=== PATIENT | female | born 1955 | race Caucasian/White ===

== ENCOUNTER 2018-11-16 16:54 | Observation (INO) | payer OTHER ==
--- NOTE | 2018-11-16 18:52 | RAD REPORT ---
EXAM DESCRIPTION: Debbie Single View11/16/2018 6:44 pm CLINICAL HISTORY: Chest pain COMPARISON: 2007 FINDINGS: The lungs appear clear of acute infiltrate. The heart is normal size IMPRESSION: No acute abnormalities displayed
[2018-11-16 18:55] LABS: Absolute Lymphocytes (CBC) 1.3 K/uL (0.7-4.9); Basophils % 0.9 % (0-1.3); Hematocrit 32.1 % (36.0-45.0); Lymphocytes % 28.2 % (15.3-44.8); MPV 8.3 fL (7.6-11.3); RBC Red Blood Cell Count 4.35 M/uL (3.86-4.86)
[2018-11-16 18:56] LABS: Protime INR 0.97
[2018-11-16 19:13] LABS: ALT/SGPT 16 U/L (12-78); AST/SGOT 14 U/L (15-37); Albumin 3.4 g/dL (3.4-5.0); Alkaline Phosphatase 120 U/L (45-117); BUN Blood Urea Nitrogen 11 mg/dL (7-18); Bicarbonate 25 mmol/L (21-32); Bilirubin Direct 0.1 mg/dL (0-0.2); Bilirubin Total 0.3 mg/dL (0.2-1.0); Glucose Level 137 mg/dL (74-106); Lipase 64 U/L (73-393); Magnesium 2.3 mg/dL (1.8-2.4); NT PRO-BNP 245 pg/mL (<125); Potassium 3.7 mmol/L (3.5-5.1); Protein, Total 7.1 g/dL (6.4-8.2); Sodium Level 142 mmol/L (136-145); Troponin (Emerg Dept Use Only) < 0.02 ng/mL (0.0-0.045)
--- NOTE | 2018-11-16 19:40 | RAD REPORT ---
EXAM DESCRIPTION: CT - Abdomen Pelvis W Contrast - 11/16/2018 7:29 pm CLINICAL HISTORY: Abdominal pain COMPARISON: none. TECHNIQUE: Computed axial tomography of the abdomen pelvis was obtained. 100 cc Isovue-300 was admin istered intravenously. Oral contrast was not requested which limits evaluation of bowel. All CT scans are performed using dose optimization technique as appropriate and may include automated exposure control or mA/KV adjustment according to patient size. FINDINGS: The liver, spleen, adrenal and kidneys appear unremarkable. Small umbilical hernia There is no evidence of diverticulitis. Normal appendix Cholecystectomy. Postsurgical changes involve the stomach Mild peripancreatic stranding. The pancreas is normal size IMPRESSION: Mild peripancreatic stranding may indicate mild pancreatitis.
[2018-11-16] MEDS ORDERED: NA CHLORIDE 0.9% 1,000 ML ONE (20:19)
--- NOTE | 2018-11-16 21:21 | EDPHYS ---
Physician Documentation [facility] Name: Fabiana Garcia Age: 63 yrs Sex: Female : 1955 Arrival Date: 11/16/2018 Time: 16:59 Bed 19 Private MD: ED Physician Emery Hitchcock HPI: 11/16 21:39 This 63 yrs old Female presents to ER via Ambulatory with complaints of kb Abdominal Pain. 21:39 The patient presents with abdominal pain in the lower abdomen. Onset: The kb symptoms/episode began/occurred 2 month(s) ago. The symptoms do not radiate. Associated signs and symptoms: Pertinent positives: nausea and vomiting, chest pain, diarrhea, syncope. The symptoms are described as intermittent. Modifying factors: The symptoms are alleviated by nothing, the symptoms are aggravated by nothing. Severity of pain: At its worst the pain was moderate in the emergency department the pain is unchanged. The patient has not experienced similar symptoms in the past. The patient has been recently seen by a physician: the patient's primary care provider, Dr. Toscano earlier today, with similar presenting complaints, and was sent to the [facility] Emergency Department for further evaluation. Pt reports she has had chest pressure that builds up starting in upper abd and radiates up center of the chest every night for a few months. States she burps or vomits and feels better. Also reports intermittent abd pain and diarrhea for 2 months. Had a syncopal episode a month ago and another one 10 days ago. Went to DR TOSCANO today and was sent to ED for eval. Historical: - Allergies: 17:02 No Known Allergies; hb - Immunization history:: Adult Immunizations up to date. - Social history:: Smoking status: Patient/guardian denies using tobacco. - Ebola Screening: : No symptoms or risks identified at this time. ROS: 21:39 Constitutional: Negative for fever, chills, and weight loss, Eyes: Negative for injury, kb pain, redness, and discharge, ENT: Negative for injury, pain, and discharge, Neck: Negative for injury, pain, and swelling, Respiratory: Negative for shortness of breath, cough, wheezing, and pleuritic chest pain, Back: Negative for injury and pain, : Negative for injury, bleeding, discharge, and swelling, MS/Extremity: Negative for injury and deformity, Skin: Negative for injury, rash, and discoloration. 21:39 Cardiovascular: Positive for chest pain, Negative for edema, orthopnea, palpitations, paroxysmal nocturnal dyspnea. 21:39 Abdomen/GI: Positive for abdominal pain, nausea, vomiting, and diarrhea. 21:39 Neuro: Positive for syncope. Exam: 21:39 Constitutional: This is a well developed, well nourished patient who is awake, alert, kb and in no acute distress. Head/Face: Normocephalic, atraumatic. Eyes: Pupils equal round and reactive to light, extra-ocular motions intact. Lids and lashes normal. Conjunctiva and sclera are non-icteric and not injected. Cornea within normal limits. Periorbital areas with no swelling, redness, or edema. ENT: Nares patent. No nasal discharge, no septal abnormalities noted. Tympanic membranes are normal and external auditory canals are clear. Oropharynx with no redness, swelling, or masses, exudates, or evidence of obstruction, uvula midline. Mucous membranes moist. Neck: Trachea midline, no thyromegaly or masses palpated, and no cervical lymphadenopathy. Supple, full range of motion without nuchal rigidity, or vertebral point tenderness. No Meningismus. Chest/axilla: Normal chest wall appearance and motion. Nontender with no deformity. No lesions are appreciated. Cardiovascular: Regular rate and rhythm with a normal S1 and S2. No gallops, murmurs, or rubs. Normal PMI, no JVD. No pulse deficits. Respiratory: Lungs have equal breath sounds bilaterally, clear to auscultation and percussion. No rales, rhonchi or wheezes noted. No increased work of breathing, no retractions or nasal flaring. Back: No spinal tenderness. No costovertebral tenderness. Full range of motion. Skin: Warm, dry with normal turgor. Normal color with no rashes, no lesions, and no evidence of cellulitis. MS/ Extremity: Pulses equal, no cyanosis. Neurovascular intact. Full, normal range of motion. Neuro: Awake and alert, GCS 15, oriented to person, place, time, and situation. Cranial nerves II-XII grossly intact. Motor strength 5/5 in all extremities. Sensory grossly intact. Cerebellar exam normal. Normal gait. 21:39 Abdomen/GI: Inspection: obese Bowel sounds: normal, in all quadrants, Palpation: soft, in all quadrants, moderate abdominal tenderness, in the right lower quadrant and left lower quadrant. Vital Signs: 17:02 BP 170 / 77; Pulse 92; Resp 20; Temp 98.2; Pulse Ox 99% on R/A; Weight 127.01 kg; hb Height 5 ft. 5 in. (165.10 cm); Pain 0/10; 18:42 BP 189 / 81; Pulse 86; Resp 18; Pulse Ox 97% ; bp 18:51 BP 168 / 87; Pulse 84; Resp 16; Pulse Ox 97% ; bp 19:54 BP 162 / 90 Supine; Pulse 86; mt 19:54 BP 181 / 89 Sitting; Pulse 94; mt 19:54 BP 190 / 102 Standing; Pulse 102; mt 20:15 BP 170 / 75; Pulse 82; Resp 16; Pulse Ox 98% on R/A; jb4 21:30 BP 156 / 75; Pulse 95; Resp 18; Pulse Ox 98% on R/A; jb4 22:00 BP 149 / 83; Pulse 88; Resp 18; Temp 98.3(O); Pulse Ox 98% on R/A; jb4 23:00 BP 137 / 67; Pulse 91; Resp 18; Pulse Ox 97% on R/A; jb4 17:02 Body Mass Index 46.59 (127.01 kg, 165.10 cm) hb MDM: 18:12 Patient medically screened. kb 21:18 Data reviewed: vital signs, nurses notes. Data interpreted: Pulse oximetry: on room air kb is 98 %. Interpretation: normal. Counseling: I had a detailed discussion with the patient and/or guardian regarding: the historical points, exam findings, and any diagnostic results supporting the discharge/admit diagnosis, lab results, radiology results, the need for further work-up and treatment in the hospital. Physician consultation: A Ricardo CONNELLY was contacted at 21:00, regarding patient's condition, wants pt admitted. 11/16 18:12 Order name: Basic Metabolic Panel; Complete Time: 19:19 kb 11/16 18:12 Order name: CBC with Diff; Complete Time: 19:33 kb 11/16 18:12 Order name: LFT's; Complete Time: 19:19 kb 11/16 18:12 Order name: Magnesium; Complete Time: 19:19 kb 11/16 18:12 Order name: NT PRO-BNP; Complete Time: 19:19 kb 11/16 18:12 Order name: PT-INR; Complete Time: 18:59 kb 11/16 18:12 Order name: Troponin (emerg Dept Use Only); Complete Time: 19:19 kb 11/16 18:12 Order name: XRAY Chest (1 view); Complete Time: 18:53 kb 11/16 18:12 Order name: Lipase; Complete Time: 19:19 kb 11/16 18:12 Order name: CT Abd/Pelvis - IV Contrast Only; Complete Time: 19:51 kb 11/16 21:40 Order name: Troponin I; Complete Time: 22:55 EDMS 11/16 22:41 Order name: Echo with Doppler EDMS 11/16 22:41 Order name: Carotid Artery Bilateral EDMS 11/16 18:12 Order name: EKG; Complete Time: 18:15 kb 11/16 18:12 Order name: Cardiac monitoring; Complete Time: 18:37 kb 11/16 18:12 Order name: EKG - Nurse/Tech; Complete Time: 18:25 kb 11/16 18:12 Order name: IV Saline Lock; Complete Time: 18:37 kb 11/16 18:12 Order name: Labs collected and sent; Complete Time: 18:37 kb 11/16 18:12 Order name: O2 Per Protocol; Complete Time: 18:38 kb 11/16 18:12 Order name: O2 Sat Monitoring; Complete Time: 18:38 kb 11/16 19:19 Order name: Orthostatics; Complete Time: 19:55 kb 11/16 21:39 Order name: EKG Electrocardiogram EDMS 11/16 21:39 Order name: EKG Electrocardiogram EDMS 11/16 21:39 Order name: EKG Electrocardiogram EDMS Administered Medications: 20:26 Drug: NS 0.9% 1000 ml Route: IV; Rate: 1000 ml; Site: right antecubital; jb4 22:00 Follow up: IV Status: Completed infusion; IV Intake: 1000ml jb4 Disposition: 11/17 08:00 Co-signature as Attending Physician, Emery Hitchcock MD I agree with the assessment and wa plan of care. Disposition: 11/16/18 21:19 Hospitalization ordered by Talita Toscano for Observation. Preliminary diagnosis are Lower abdominal pain, unspecified, Chest pain, unspecified. - Bed requested for Telemetry/MedSurg (observation). - Status is Observation. jb4 - Condition is Stable. - Problem is new. - Symptoms are unchanged. UTI on Admission? No Signatures: Dispatcher [employer] EDLatosha Sandoval, APRIL-C SAW TAILER-Sarita Levi, RN RN Tresa Govea, RN RN Cedric Chun, RN RN jb4 Emery Hitchcock MD MD pr Corrections: (The following items were deleted from the chart) 11/16 22:14 21:19 Hospitalization Ordered by A Ricardo CONNELLY for Observation. Preliminary diagnosis is mw Lower abdominal pain, unspecified; Chest pain, unspecified. Bed requested for Telemetry/MedSurg (observation). Status is Observation. Condition is Stable. Problem is new. Symptoms are unchanged. UTI on Admission? No. kb 23:18 22:14 11/16/2018 21:19 Hospitalization Ordered by A Ricardo CONNELLY for Observation. jb4 Preliminary diagnosis is Lower abdominal pain, unspecified; Chest pain, unspecified. Bed requested for Telemetry/MedSurg (observation). Status is Observation. Condition is Stable. Problem is new. Symptoms are unchanged. UTI on Admission? No. mw
--- NOTE | 2018-11-16 21:21 | ER ---
Nurse's Notes [facility] Name: Fabiana Garcia Age: 63 yrs Sex: Female : 1955 Arrival Date: 11/16/2018 Time: 16:59 Bed 19 Private MD: Diagnosis: Lower abdominal pain, unspecified;Chest pain, unspecified Presentation: 11/16 17:01 Presenting complaint: intermittent LLQ pain and N/V x 1 month. Eating chips in triage. hb Denies fever. Transition of care: patient was not received from another setting of care. Onset of symptoms is unknown. Risk Assessment: Do you want to hurt yourself or someone else? Patient reports no desire to harm self or others. Care prior to arrival: None. 17:01 Method Of Arrival: Ambulatory hb 17:01 Acuity: GEORGES 3 hb Triage Assessment: 17:05 General: Appears in no apparent distress. comfortable, obese, Behavior is cooperative, bp appropriate for age, anxious. Pain: Complains of pain in abdomen. EENT: No deficits noted. Neuro: No deficits noted. Cardiovascular: Rhythm is sinus rhythm. Respiratory: No deficits noted. GI: Reports lower abdominal pain. : No signs and/or symptoms were reported regarding the genitourinary system. Derm: No deficits noted. Musculoskeletal: No deficits noted. Historical: - Allergies: 17:02 No Known Allergies; hb - Immunization history:: Adult Immunizations up to date. - Social history:: Smoking status: Patient/guardian denies using tobacco. - Ebola Screening: : No symptoms or risks identified at this time. Screenin:32 Abuse screen: Denies threats or abuse. Denies injuries from another. Nutritional bp screening: No deficits noted. Tuberculosis screening: No symptoms or risk factors identified. Fall Risk None identified. Assessment: 18:10 General: SEE TRIAGE NOTE. bp 18:42 Reassessment: ALL CURRENT ORDERS COMPLETED, CT PENDING. bp 19:10 Reassessment: Patient appears in no apparent distress at this time. Patient and/or jb4 family updated on plan of care and expected duration. Pain level reassessed. Patient is alert, oriented x 3, equal unlabored respirations, skin warm/dry/pink. 20:15 Reassessment: Patient appears in no apparent distress at this time. Patient and/or jb4 family updated on plan of care and expected duration. Pain level reassessed. Patient is alert, oriented x 3, equal unlabored respirations, skin warm/dry/pink. 21:30 Reassessment: Patient appears in no apparent distress at this time. Patient and/or jb4 family updated on plan of care and expected duration. Pain level reassessed. Patient is alert, oriented x 3, equal unlabored respirations, skin warm/dry/pink. 22:32 Reassessment: Patient appears in no apparent distress at this time. Patient and/or jb4 family updated on plan of care and expected duration. Pain level reassessed. Patient is alert, oriented x 3, equal unlabored respirations, skin warm/dry/pink. 23:15 Reassessment: Patient appears in no apparent distress at this time. Patient and/or jb4 family updated on plan of care and expected duration. Pain level reassessed. Patient is alert, oriented x 3, equal unlabored respirations, skin warm/dry/pink. PT transferred up stair via wheelchair, IV patent, flushes and draws blood with ease. Vital Signs: 17:02 BP 170 / 77; Pulse 92; Resp 20; Temp 98.2; Pulse Ox 99% on R/A; Weight 127.01 kg; hb Height 5 ft. 5 in. (165.10 cm); Pain 0/10; 18:42 BP 189 / 81; Pulse 86; Resp 18; Pulse Ox 97% ; bp 18:51 BP 168 / 87; Pulse 84; Resp 16; Pulse Ox 97% ; bp 19:54 BP 162 / 90 Supine; Pulse 86; mt 19:54 BP 181 / 89 Sitting; Pulse 94; mt 19:54 BP 190 / 102 Standing; Pulse 102; mt 20:15 BP 170 / 75; Pulse 82; Resp 16; Pulse Ox 98% on R/A; jb4 21:30 BP 156 / 75; Pulse 95; Resp 18; Pulse Ox 98% on R/A; jb4 22:00 BP 149 / 83; Pulse 88; Resp 18; Temp 98.3(O); Pulse Ox 98% on R/A; jb4 23:00 BP 137 / 67; Pulse 91; Resp 18; Pulse Ox 97% on R/A; jb4 17:02 Body Mass Index 46.59 (127.01 kg, 165.10 cm) hb ED Course: 16:59 Patient arrived in ED. mr 17:02 Triage completed. hb 17:02 Arm band placed on. hb 18:00 EKG done, by ED staff, reviewed by Latosha MARTIN. dh3 18:10 Paco Maxwell, RN is Primary Nurse. bp 18:12 Latosha Ellison FNP-C is PHCP. kb 18:12 Emery Hitchcock MD is Attending Physician. kb 18:32 Patient has correct armband on for positive identification. Placed in gown. Bed in low bp position. Call light in reach. Side rails up X2. Adult w/ patient. 18:33 Radiology exam delayed due to lab results not completed at this time. (BUN/Creatinine). vm2 18:34 Initial lab(s) drawn, by me, sent to lab. Inserted saline lock: 20 gauge in right 3 antecubital area, using aseptic technique. Blood collected. 18:45 XRAY Chest (1 view) In Process Unspecified. EDMS 18:54 Radiology exam delayed due to lab results not completed at this time. (BUN/Creatinine). vm2 19:01 Primary Nurse role handed off by Paco Maxwell, EDY jb4 19:01 Cedric Chun, EDY is Primary Nurse. jb4 19:27 CT completed. Patient tolerated procedure well. Patient moved to CT. Patient moved back ia from CT. 19:30 CT Abd/Pelvis - IV Contrast Only In Process Unspecified. EDMS 21:19 Talita Silva MD is Hospitalizing Provider. kb 23:00 No provider procedures requiring assistance completed. Patient admitted, IV remains in jb4 place. Administered Medications: 20:26 Drug: NS 0.9% 1000 ml Route: IV; Rate: 1000 ml; Site: right antecubital; jb4 22:00 Follow up: IV Status: Completed infusion; IV Intake: 1000ml jb4 Intake: 22:00 IV: 1000ml; Total: 1000ml. jb4 Outcome: 21:19 Decision to Hospitalize by Provider. kb 23:00 Admitted to Tele accompanied by nurse, via wheelchair, room 411, with chart, Report jb4 called to EDY Ho 23:00 Condition: stable 23:00 Discharge instructions given to patient, family, Instructed on the need for admit, Demonstrated understanding of instructions. 23:18 Patient left the ED. jb4 Signatures: Dispatcher [employer] EDAZ Latosha Ellison, ACCOUNT MANAGER [employer]-C ACCOUNT MANAGER [employer]-Ckb Edmundo, Chela mr JefersonTresa, RN RN Cedric Chun RN RN jb4 Luis Angel Lee [facility] Carol Leos ri Jn, Ira 3 Paco Maxwell, RN RN bp Corrections: (The following items were deleted from the chart) 17:03 17:01 Presenting complaint: LLQ pain and N/V x 1 month. Eating chips in triage. Denies hb fever. hb
[2018-11-16 23:36] VITALS: BMI 46.5
[2018-11-17 00:23] LABS: Urine Appearance CLEAR; Urine Bilirubin NEGATIVE (NEG); Urine Blood NEGATIVE (NEG); Urine Color YELLOW; Urine Glucose NEGATIVE (NEG); Urine Protein NEGATIVE (NEG); Urine Specific Gravity >=1.030 (1.005-1.030); Urine Urobilinogen 0.2 mg/dL (0.2-1.0)
[2018-11-17 00:27] LABS: Urine Microscopic Reflex NO UMIC
[2018-11-17 00:30] VITALS: O2SAT 100
[2018-11-17 00:34] LABS: Ferritin 5.1 ng/mL (8-388); Folic Acid, (Folate) > 20.0 ng/mL (3.1-17.5); Transferrin 381 mg/dL (200-360)
[2018-11-17] MEDS ORDERED: ONDANSETRON 4 MG/2 ML VIAL IV PRN (04:59)
[2018-11-17] MEDS ORDERED: MORPHINE 2 MG/ML SYR IV PRN (04:59)
[2018-11-17] MEDS ORDERED: SODIUM CHLORIDE 0.9% 10ML INJ IV PRN (05:50)
[2018-11-17 06:12] LABS: Lymphocytes % 30.3 % (15.3-44.8)
[2018-11-17 06:24] LABS: Potassium 4.2 mmol/L (3.5-5.1)
[2018-11-17] MEDS ORDERED: PANTOPRAZOLE 40MG TABLET PO SCH (06:30)
--- NOTE | 2018-11-17 07:35 | EKG ---
Test Date: 2018-11-16 Test Time: 18:27:50 Clock Assembler: BRIDGER MEASUREMENT RESULTS: Intervals: Rate: 83 WV: 130 QRSD: 78 QT: 372 QTc: 437 [place]: P: 35 WV: 130 QRS: 13 T: 53 INTERPRETIVE STATEMENTS: Normal sinus rhythm Normal ECG Compared to ECG 09/13/2007 05:04:13 No significant changes Electronically Signed On 11-17-18 07:33:58 CDT by Jeffrey Lilly
[2018-11-17 07:36] LABS: Absolute Lymphocytes (CBC) 1.5 K/uL (0.7-4.9); Basophils % 1.1 % (0-1.3); Hematocrit 30.8 % (36.0-45.0); MPV 8.4 fL (7.6-11.3); RBC Red Blood Cell Count 4.16 M/uL (3.86-4.86)
[2018-11-17] MEDS ORDERED: REGADENOSON 0.4 MG/5 ML SYR IV ONE (07:46)
[2018-11-17] MEDS ORDERED: PNEUMOCOCCAL VACCINE 0.5 ML IMVAC ONE ×2 (08:00→14:00)
[2018-11-17] MEDS ORDERED: PANTOPRAZOLE 40 MG INJ IVP SCH (09:00)
[2018-11-17] MEDS ORDERED: ASPIRIN EC 81 MG TAB PO SCH (09:00)
--- NOTE | 2018-11-17 09:06 | RAD REPORT ---
EXAM DESCRIPTION: USCarotid Artery Bilateral11/17/2018 7:12 am CLINICAL HISTORY: Syncope COMPARISON: 2007 FINDINGS: The velocity of the right internal carotid artery equals 63 cm/sec. The right ICA/CCA rati o 1.4 The velocity of the left internal carotid artery equals 95 cm/sec. The left ICA/CCA ratio 1.2 Mild plaque is present within the carotid arteries. The vertebral arteries demonstrate antegrade flow IMPRESSION: Mild plaque within the carotid arteries without evidence of a hemodynamically significan t stenosis NASCET criteria used. Mild 0-49% stenosis Moderate 50-69% stenosis Severe 70-99% stenosis
--- NOTE | 2018-11-17 10:53 | RAD REPORT ---
EXAM DESCRIPTION: NM - Rest Stress Cardiac Imaging - 11/17/2018 10:46 am CLINICAL HISTORY: Chest pain COMPARISON: None. TECHNIQUE: The patient was administered approximately 10 mCi of Tc 99m Sestamibi prior to resting SP ECT imaging of the heart. The patient was then administered approximately 30 mCi of Tc 99m Sestamibi following exercise or pharmacologic stress. Multiplanar SPECT images were reviewed. FINDINGS: The end diastolic volume is 109 ml, the end systolic volume is 44 ml, and the ejection fra ction is 59 %. No stress-induced ischemic changes identified. There is a decrease in activity along the inferior wal l from base to apex that does not change between rest and stress imaging. This is favored to be diaph ragm attenuation artifact rather than inferior wall scarring. No other area of fixed decreased activi ty. IMPRESSION: No stress-induced ischemia. Large area of mildly diminished activity involving the inferior wall from base to apex favored to be attenuation artifact from diaphragm rather than scarring. Normal ventricular volumes and ejection fraction.
--- NOTE | 2018-11-17 12:26 | EKG ---
Test Date: 2018-11-17 Test Time: 07:24:30 Clothing Busheler: YVONNE MEASUREMENT RESULTS: Intervals: Rate: 69 AL: 134 QRSD: 76 QT: 396 QTc: 424 [place]: P: 45 AL: 134 QRS: 26 T: 49 INTERPRETIVE STATEMENTS: Normal sinus rhythm Normal ECG Compared to ECG 11/16/2018 18:27:50 No significant changes Electronically Signed On 11-17-18 12:24:59 CDT by Mark Spivey
[2018-11-17 12:33] VITALS: BP 179/80; TEMP 97.8
--- NOTE | 2018-11-17 14:02 | ECHO ---
HEIGHT: 5 ft 5 in WEIGHT: 279 lb 6.4 oz DATE OF STUDY: 11/17/[address]: Gee Silva MD 2-DIMENSIONAL: YES M.MODE: YES DOPPLER: YES COLOR FLOW: YES TDS: NO PORTABLE: NO DEFINITY: NO BUBBLE STUDY: NO DIAGNOSIS: SYNCOPE CARDIAC HISTORY: CATHERIZATION: NO SURGERY: NO PROSTHETIC VALVE: NO PACEMAKER: NO MEASUREMENTS (cm) DIASTOLIC (NORMALS) SYSTOLIC (NORMALS) IVSd 1.1 (0.6-1.2) LA Diam 3.2 (1.9-4.0) LVEF 69% LVIDd 4.3 (3.5-5.7) LVIDs 2.6 (2.0-3.5) %FS 39% LVPWd 1.2 (0.6-1.2) Ao Diam 2.6 (2.0-3.7) 2 DIMENSIONAL ASSESSMENT: RIGHT ATRIUM: NORMAL LEFT ATRIUM: NORMAL RIGHT VENTRICLE: NORMAL LEFT VENTRICLE: NORMAL TRICUSPID VALVE: NORMAL MITRAL VALVE: NORMAL PULMONIC VALVE: NORMAL AORTIC VALVE: NORMAL PERICARDIAL EFFUSION: NONE AORTIC ROOT: NORMAL LEFT VENTRICULAR WALL MOTION: NORMAL DOPPLER/COLOR FLOW: NORMAL COMMENTS: NORMAL 2D ECHOCARDIOGRAM WITH DOPPLER. NO WALL MOTION ABNORMALITY. NO EFFUSION. TECHNOLOGIST: Theresa VELOZ
--- NOTE | 2018-11-17 14:06 | TREADPHA ---
DX: CHEST PAIN Date of Study: 11/17/2018 Ht: 5 5 Wt: 279 lb 6.4 oz Consulting Physician: PRAMOD MEDICATIONS: ASPIRIN, ZOFRAN, PROTONIX HISTORY: REFLUX, GASTRIC BYPASS PHYSICIAL EXAMINATION: RESTING B.P.: 168/81 RESTING H.R.: 78 RESTING EKG: NORMAL PROTOCOL: LEXISCAN EXERCISE TIME: 3:30 B.P. AT PEAK STRESS: 154/67 IMPRESSION: LEXISCAN STRESS TEST PERFORMED. CARDIOLITE INJECTED PER PROTOCOL. NO SUPRAVENTRICULAR TACHYCARDIA OR VENTRICULAR TACHYCARDIA NOTED. DENIES CHEST PAIN OR SHORTNESS OF BREATH. NO ARRYTHMIAS. SEE NUCLEAR MEDICINE REPORT.
--- NOTE | 2018-11-18 02:57 | HP ---
Date of Admission: 11/16/2018 Chief Complaint: Chest pain, abdominal pain, fainting episodes. History Of Present Illness: This is a 63-year-old pleasant female patient who has prior history of g astric bypass surgery, came into office with 1 month history of intermittent abdominal pain, nausea, vomiting, diarrhea for last 1 month. She is also having some episodes of chest pain, describing as h eaviness, tightness type of feeling in the center of the chest in last 2 weeks, not associated with a ny meal or activity. She describes having 2 episodes of fainting spell, once while she was in the ba throom, walking, all of a sudden she had a fainting spell and she fell down on the floor and second t aaliyah she had was while she was sitting in the chair and patient reports that second episode she believ es might have been due to drinking excessive amount of wine. Patient reports drinking on an average 4 glasses of wine a day at nighttime and each glass is about 4 ounce. When she had that last faintin g episode while she was sitting in the chair, she reports drinking about 6 glasses of wine a day. Af ter she was evaluated at the office, she was sent to emergency room for further evaluation, and after further evaluation in the ER, she was admitted to the hospital. Past Medical History: Significant for sleep apnea, osteoarthritis at multiple sites, history of anem ia, hyperlipidemia. Past Surgical History: Gastric bypass surgery in 2000, in 1982 and 1985, and breast biopsy in 1975. Allergies: NO KNOWN ALLERGIES. Family History: Significant for cancer of pancreas, hypertension, myocardial infarction, Alzheimer d isease, and migraine. Social History: Negative for smoking. Use of alcohol, 4 to 6 glasses of wine every day. Review of Systems: GI: As mentioned above. Cardiovascular: As mentioned above. All other systems reviewed and negative. Physical Examination: Vital Signs: Upon admission vital signs, temperature 98.2, pulse 92, respiratory rate 20, blood pres sure 170/77, oxygen saturation 99%. Height 5 feet 5 inches, weight 279 pounds. General: Awake, alert, oriented, not in distress. HEENT: Head atraumatic, normocephalic. Conjunctivae nonerythematous. Sclerae white. Mouth, no thr ush or edema noted. Ears/Nose, no mass, lesion, discharge noted. Neck: Supple. No JVD, lymph nodes, bruit, thyromegaly noted. Lungs: Bilateral good equal air entry. Clear to auscultation. No rhonchi. No rales. Heart: Normal heart sounds, no murmur or gallop. Abdomen: Soft. Bowel sounds normoactive. No guarding, rigidity, distention. Patient has significa nt tenderness in the left lower quadrant. No rebound tenderness. Extremities: No leg edema. No calf tenderness. Skin: No rash, ulcer, cellulitis. Lymphatics: No lymph node enlargement in neck, supraclavicular, infraclavicular region. Neuro: No focal neurological deficit. Chest: Unremarkable. External Genitalia: Deferred. Rectal: Deferred. Medications: Zantac 150 mg p.o. daily p.r.n. She takes naproxen p.r.n. Laboratory Data: White count 4.6, hemoglobin 9.6, platelets 314. Sodium 142, potassium 3.7, chlorid e 110, bicarb 25, BUN 11, creatinine 0.90, glucose 137. Liver function tests unremarkable. Troponin less than 0.02. Lipase 64. Chest x-ray, no acute cardiopulmonary changes. EKG; normal sinus rhythm, no acute ST-T changes. CAT scan of the abdomen pelvis, no acute intraabdominal changes noted, except some mild stranding around the pancreas. Impression: 1.Chest pain. 2.Syncope. 3.Mild acute pancreatitis. 4.Hypertension. 5.Status post gastric bypass. 6.Primary insomnia. 7.Hyperlipidemia. 8.Gastroesophageal reflux disease. Plan: Admit patient to hospital for further evaluation and management of this problem. Patient is a ppropriate for observation. We will go ahead and keep her on telemetry. Get serial cardiac enzymes. Start her on IV Protonix. Pain and nausea medications will be given. We will get carotid Doppler, echocardiogram, and stress test tomorrow morning; get fasting lipid profile; repeat lipase; and I wi ll see her tomorrow morning for followup. Anemia workup will be done. Stool guaiac done in the [facility] was negative. FRANCHESKA/MODL Voice ID: [id number]
--- NOTE | 2018-11-18 03:27 | DS ---
Date of Discharge: 11/17/2018 Disposition: Discharged to go home. Physical Examination: HEENT: Unremarkable. Lungs: Clear to auscultation. Heart: Sounds normal. Abdomen: Soft. Bowel sounds normal. No guarding, rigidity. Mild tenderness in left lower quadrant , much better today than yesterday. No rebound tenderness. Extremities: No leg edema. Discharge Medications And Instructions: 1.Stop Zantac. 2.Take Protonix 40 mg p.o. daily. 3.Take trazodone 50 mg. Patient to take half a tablet p.o. at bedtime. 4.Take Ferrocite 1 tablet by mouth 2 times a day. When I will see her on outpatient basis, we will decide on antihypertensive medication at that time. Followup: Follow up at my office next week. Laboratory Data: Labs done during this hospitalization: Ferritin level low at 5.1, B12 normal at 36 4, folic acid more than 20. Liver function tests unremarkable. Troponin less than 0.02. Initial li pase 64. Repeat lipase today 83. CAT scan of abdomen shows changes of mild pancreatitis, status pos t cholecystectomy. No other acute findings. Chest x-ray unremarkable. Carotid Doppler; mild caroti d plaquing, no evidence of hemodynamically significant stenotic lesion. Stress test negative for str ess-induced ischemia. Echo result pending at the time of discharge. Hospital Course: A 63-year-old pleasant female patient admitted to the hospital with chest pain, abd ominal pain, and syncope. Please see dictated H and P for more information. After patient was evalu ated at office, she was sent to emergency room for further workup. After further workup in the ER, s he was admitted to the hospital. Her CT was ruled out by getting serial cardiac enzymes, and today, we got negative stress tests, unremarkable carotid Doppler, and after the echocardiogram, order was kristin morgan to discharge the patient. I will follow up on echocardiogram results on outpatient basis. I did have a long discussion with patient's this morning and advised her that she should not dr ink any alcohol at all in view of pancreatitis changes that we see and other possible side effect of long-term alcohol use, so she was strongly recommended not to drink any alcohol at all. Patient repo rts that she has been drinking alcohol for insomnia problem and she would like to try some medication for that and she has tried [id number] melatonin, which has not helped her. We will try trazod one, which she reports that she did take it years ago in the past and it was helpful. So, we will tr y trazodone as prescribed, and as it becomes necessary, we will consider to increase the dose. Devyn leger has iron-deficiency anemia and she needs GI workup that will include EGD, colonoscopy, and she may need capsule endoscopy depending on EGD and colonoscopy. Patient would like to get a referral to se [facility], so we will refer her on outpatient basis. She will have an appointment to see me next week, and at that time, we will initiate referral. In the meanwhile, I have advised her to start greg ing iron supplement as prescribed and Protonix and trazodone as prescribed. Final Diagnoses: 1.Chest pain. 2.Syncope. 3.Pancreatitis, acute, mild. 4.Primary insomnia. 5.Hypertension. 6.Gastroesophageal reflux disease. 7.Sleep apnea. 8.Osteoarthritis, multiple sites. 9.Hyperlipidemia. FRANCHESKA/MODL Voice ID: [id number] Report ID: [id number]
== END 2018-11-17 14:51 | disposition home or self-care (01) ==
LOC: ER 16:54 → 4TH 22:56
PROVIDERS: ADMIT Internal Medicine; ATTEND Internal Medicine
DX: R07.9 Chest pain, unspecified (principal); R55 Syncope and collapse; K85.90 Acute pancreatitis without necrosis or infection, unspecified; F51.01 Primary insomnia; K21.9 Gastro-esophageal reflux disease without esophagitis; I10 Essential (primary) hypertension; G47.30 Sleep apnea, unspecified; M15.9 Polyosteoarthritis, unspecified; E78.5 Hyperlipidemia, unspecified; I65.23 Occlusion and stenosis of bilateral carotid arteries; Z98.84 Bariatric surgery status
CPT/HCPCS: 96361; 93005 ×2; 93017; 93306; 85025 ×2; 80048 ×2; 36415; 83735; 85610; 80061; 80076; 81003; 84484 ×3; 82728; 82746; 82607; 83690 ×2; 83540; 83880; 84466; 74177; 71045; 93880; 90670; 78452; 96360; 99285; Q9967; C9113; J2270; J2785; J7030; J2405; A9500; G0378 ×2

== ENCOUNTER 2019-01-26 06:30 | Day surgery (SDC) | payer OTHER ==
[2019-01-26] MEDS ORDERED: Ringers Lactate 1,000 ML IV ONE (06:37)
[2019-01-26] MEDS ORDERED: PROPOFOL 200 MG/20 ML VIAL IV ONE (08:28)
[2019-01-26] MEDS ORDERED: LIDOCAINE 1% MPF 5 ML VIAL ONE (08:29)
--- NOTE | 2019-01-26 08:57 | ENDO RPT ---
[address], [address] EGD PROCEDURE REPORT EXAM DATE: 01/26/2019 PATIENT NAME: Fabiana Garcia MR#: [id number] BIRTHDATE: 1955 ATTENDING: Emery Bales Dr STATUS: outpatient QUARTZ MINER: Danyell Acharya RN and Adela Kang INDICATIONS: The patient is a 63 yr old Female here for an EGD due to mid epigastric abdominal pain, anemia on iron supplements, belching, bloating, and dyspepsia PROCEDURE PERFORMED: EGD with biopsy MEDICATIONS: Per Anesthesia. TOPICAL ANESTHETIC: none CONSENT: The patient understands the risks and benefits of the procedure and understands that these risks include, but are not limited to: sedation, allergic reaction, infection, perforation and/or bleeding. Alternative means of evaluation and treatment include, among others: physical exam, x-rays, and/or surgical intervention. The patient elects to proceed with this endoscopic procedure. DESCRIPTION OF PROCEDURE: During intra-op preparation period all mechanical medical equipment was checked for proper function. Hand hygiene and appropriate measures for infection prevention was taken. Procedure, possible complications, and alternatives including but not limited to the possibility of bleeding, perforation, tear, infection, sepsis, need for surgery, need for blood transfusion, and anesthesia related complications were explained to the patient. After the risks, benefits and alternatives of the procedure were thoroughly explained, Informed consent was verified, confirmed and timeout was successfully executed by the treatment team. The patient was placed in the left lateral position. The patient was anesthetized with topical anesthesia. Through the anesthetized oropharyngeal area, the scope was passed without any difficulty. The EG-[id number] ([id number]) endoscope was introduced through the mouth and advanced to the mid jejunum. Retroflexion was not performed. The gastroscope was then slowly withdrawn and removed. Mild gastritis was found in the fundus. With jumbo forceps, a biopsy was obtained and sent to pathology. Anastomosis was noted in the fundus. Small bowel biopsies obtained ADVERSE EVENTS: There were no complications. IMPRESSIONS: 1. Gastric bypass anastomosis in the fundus, 3 cm gastric 2. Mild gastritis in the fundus / gastric pouch, s/p biopsies 3. Small bowel biopsies obtained RECOMMENDATIONS: 1. await biopsy results 2. acid suppression therapy REPEAT EXAM: Emery Bales Dr eSigned: Emery Bales Dr 01/26/2019 8:57 AM cc: Gee Silva CPT CODES: ICD9 CODES: PATIENT NAME: Fabiana Garcia MR#: [id number]
--- NOTE | 2019-01-26 09:24 | ENDO RPT ---
[address], [address] COLONOSCOPY PROCEDURE REPORT EXAM DATE: 01/26/2019 PATIENT NAME: Fabiana Garcia MR #: [id number] BIRTHDATE: 1955 ATTENDING: Emery Bales Dr STATUS: outpatient LEATHER CRAFTER: Danyell Acharya RN and Adela Kang INDICATIONS: The patient is a 63 yr old Female here for a colonoscopy due to iron deficiency anemia PROCEDURE PERFORMED: Colonoscopy MEDICATIONS: Per Anesthesia. ESTIMATED BLOOD LOSS: None CONSENT: The patient understands the risks and benefits of the procedure and understands that these risks include, but are not limited to: sedation, allergic reaction, infection, perforation and/or bleeding. Alternative means of evaluation and treatment include, among others: physical exam, x-rays, and/or surgical intervention. The patient elects to proceed with this endoscopic procedure. DESCRIPTION OF PROCEDURE: During intra-op preparation period all mechanical medical equipment was checked for proper function. Hand hygiene and appropriate measures for infection prevention was taken. Procedure, possible complications, alternatives including, but not limited to possibility of bleeding, perforation, tear, infection, sepsis, need for surgery, need for blood transfusion, were explained to the patient. After the risks, benefits and alternatives of the procedure were thoroughly explained, Informed consent was verified, confirmed and timeout was successfully executed by the treatment team. The patient was placed in the left lateral position. A digital rectal exam was performed and revealed a skin tag. After appropriate level of anesthesia, the scope was passed. The EG-[id number] ([id number]) and [id number] ([id number]) endoscope was introduced through the anus and advanced to the terminal ileum which was intubated for a short distance. The quality of the prep was good. The instrument was then slowly withdrawn as the colon was fully examined. Scope withdrawal time was 7 minutes. COLON FINDINGS: Mild diverticulosis was noted throughout the entire examined colon. No bleeding was noted from the diverticulosis. Small internal hemorrhoids were found. Retroflexed views revealed small hemorrhoids. The scope was then completely withdrawn from the patient and the procedure terminated. ADVERSE EVENTS: There were no complications. IMPRESSIONS: 1. Mild diverticulosis throughout the entire examined colon 2. Small internal hemorrhoids 3. Intubation to terminal ileum RECOMMENDATIONS: 1. yearly hemoccult starting in 4 years 2. Small Bowel Follow Through 3. pillcam / capsule endoscopy RECALL: Return in 10 year(s) for Colonoscopy. Emery Bales Dr eSigned: Emery Bales Dr 01/26/2019 9:23 AM cc: Gee Silva CPT CODES: ICD9 CODES: 455.9 Residual hemorrhoidal skin tags PATIENT NAME: Fabiana Garcia MR#: [id number]
[2019-01-26 09:37] VITALS: TEMP 97.9
[2019-01-26 10:08] VITALS: BP 133/72; O2SAT 100
--- NOTE | 2019-01-26 13:13 | RAD REPORT ---
EXAM DESCRIPTION: RAD - Small Bowel Series - 01/26/2019 1:06 pm CLINICAL HISTORY: Iron deficiency anemia Abdominal pain COMPARISON: Abdomen Pelvis W Contrast dated 11/16/2018 FINDINGS: [employer] Grade Teacher film shows a nonspecific bowel gas pattern. No obstruction or free air. No suspiciou s calcifications. Postsurgical changes involve the stomach. A small remnant gastric cavity is seen. Postsurgical changes of gastric bypass are present. No delay in transit of contrast into the small bowel. Small bowel is normal in diameter with no mucosal fold t hickening. No intrinsic or extrinsic mass identifiable. Terminal ileum has normal appearance. Transit time to the colon is normal. No fluoroscopy was performed. Total images acquired: 8 IMPRESSION: Normal small bowel series status post gastric bypass procedure.
== END 2019-01-26 10:30 | disposition home or self-care (01) ==
LOC: OR 06:30
PROVIDERS: ATTEND Internal Medicine Gastroenterology
PROC: 0DB88ZX Excision of Small Intestine, Via Natural or Artificial Opening Endoscopic, Diagnostic (ICD-10-PCS; 2019-01-26)
PROC: 0DJD8ZZ Inspection of Lower Intestinal Tract, Via Natural or Artificial Opening Endoscopic (ICD-10-PCS; principal; 2019-01-26 08:15)
PROC: 0DB68ZX Excision of Stomach, Via Natural or Artificial Opening Endoscopic, Diagnostic (ICD-10-PCS; 2019-01-26 08:15)
DX: K29.50 Unspecified chronic gastritis without bleeding (principal); K57.90 Diverticulosis of intestine, part unspecified, without perforation or abscess without bleeding; D50.9 Iron deficiency anemia, unspecified; K64.8 Other hemorrhoids; G47.30 Sleep apnea, unspecified; E66.01 Morbid (severe) obesity due to excess calories; Z98.84 Bariatric surgery status
CPT/HCPCS: 88312; 88305; 74250; 45378; 43239; J2704; J7120

== ENCOUNTER 2021-11-24 12:18 | Observation (INO) | payer OTHER ==
[2021-11-24 13:05] LABS: Urine Blood Negative (Negative); Urine Glucose Negative (Negative); Urine Protein Negative (Negative); Urine Specific Gravity >=1.030 (1.005-1.030); Urine pH 5.5 (5.0-7.0)
[2021-11-24] MEDS ORDERED: NA CHLORIDE 0.9% 1,000 ML ONE ×2 (13:24→14:53)
[2021-11-24] MEDS ORDERED: ONDANSETRON 4 MG/2 ML VIAL ONE ×2 (13:24→14:53)
[2021-11-24] MEDS ORDERED: MORPHINE 4 MG/ML SYR ONE (13:24)
[2021-11-24 13:27] LABS: Absolute Lymphocytes (CBC) 1.4 K/uL (0.7-4.9); Hematocrit 40.4 % (36.0-45.0); Lymphocytes % 22.4 % (15.3-44.8); MCV 95.3 fL (80-100); MPV 7.9 fL (7.6-11.3); RBC Red Blood Cell Count 4.24 M/uL (3.86-4.86)
[2021-11-24 13:44] LABS: Albumin 3.1 g/dL (3.4-5.0); Bilirubin Total 0.3 mg/dL (0.2-1.0); Potassium 4.8 mmol/L (3.5-5.1); Protein, Total 6.8 g/dL (6.4-8.2)
--- NOTE | 2021-11-24 14:22 | RAD REPORT ---
EXAM DESCRIPTION: CT - Abdomen Pelvis W Contrast - 11/24/2021 2:06 pm CLINICAL HISTORY: Abdominal pain/right flank pain COMPARISON: 2019 TECHNIQUE: Computed axial tomography of the abdomen pelvis was obtained. 100 cc Isovue-300 was admin istered intravenously. Oral contrast was not requested which limits evaluation of bowel and appendix All CT scans are performed using dose optimization technique as appropriate and may include automated exposure control or mA/KV adjustment according to patient size. FINDINGS: The liver, spleen, adrenal and kidneys appear unremarkable. Small to moderate umbilical hernia contains fat. Postsurgical changes spine There is no evidence of diverticulitis. Normal appendix Cholecystectomy. Postsurgical changes involve the stomach Mild peripancreatic stranding. The pancreas is normal size IMPRESSION: Mild peripancreatic stranding may indicate mild pancreatitis
--- NOTE | 2021-11-24 14:23 | RAD REPORT ---
EXAM DESCRIPTION: Debbie Single View11/24/2021 2:03 pm CLINICAL HISTORY: Abdominal pain COMPARISON: 2018 FINDINGS: The lungs appear clear of acute infiltrate. The heart is normal size IMPRESSION: No acute abnormalities displayed
[2021-11-24] MEDS ORDERED: HYDROMORPHONE HCL 1 MG/ML INJ ONE (14:52)
--- NOTE | 2021-11-24 15:56 | ER ---
Nurse's Notes [facility] Name: Fabiana Garcia Age: 66 yrs Sex: Female : 1955 Arrival Date: 11/24/2021 Time: 12:23 Bed 23 Private MD: Diagnosis: Epigastric abdominal tenderness;Biliary acute pancreatitis-early;Morbid (severe) obesity due to excess calories Presentation: 11/24 12:28 Chief complaint: Patient states: Right flank pain X 2 days. Coronavirus screen: At this ld1 time, the client does not indicate any symptoms associated with coronavirus-19. Ebola Screen: No symptoms or risks identified at this time. Initial Sepsis Screen: Does the patient meet any 2 criteria? No. Patient's initial sepsis screen is negative. Does the patient have a suspected source of infection? No. Patient's initial sepsis screen is negative. Risk Assessment: Do you want to hurt yourself or someone else? Patient reports no desire to harm self or others. Onset of symptoms was November 24, 2021. 12: Method Of Arrival: Wheelchair ld1 12:28 Acuity: GEORGES 3 ld1 Triage Assessment: 12:28 General: Appears in no apparent distress. comfortable, Behavior is calm, cooperative, ld1 appropriate for age. Pain: Complains of pain in right low back Pain does not radiate. Pain currently is 10 out of 10 on a pain scale. EENT: No signs and/or symptoms were reported regarding the EENT system. Neuro: Level of Consciousness is awake, alert, obeys commands, Oriented to person, place, time, situation, Appropriate for age. Cardiovascular: Capillary refill < 3 seconds Patient's skin is warm and dry. Respiratory: Airway is patent Respiratory effort is even, unlabored. GI: Abdomen is round non-distended. Musculoskeletal: Reports pain in back. Historical: - Allergies: 12: No Known Allergies; ld1 - PMHx: 12:28 Hypertensive disorder; ld1 - PSHx: 12:28 gastric bypass; section; ld1 - Immunization history:: Adult Immunizations up to date, Client reports receiving the 2nd dose of the Covid vaccine. - Social history:: Smoking status: Patient denies any tobacco usage or history of. Patient uses alcohol, occasionally. - Family history:: not pertinent. Screenin:30 Abuse screen: Denies threats or abuse. Denies injuries from another. Nutritional kb3 screening: No deficits noted. Tuberculosis screening: No symptoms or risk factors identified. Fall Risk Fall in past 12 months (25 points). Secondary diagnosis (15 points) impaired mobility, IV access (20 points). Ambulatory Aid- Crutches/Cane/Walker (15 pts). Gait- Weak (10 pts.). Mental Status- Oriented to own ability (0 pts). Total Magdaleno Fall Scale indicates High Risk Score (45 or more points). Fall prevention measures have been instituted. Placed Close to Nursing Station Family Present and informed to notify staff if the need to leave the bedside. Assessment: 12:30 Reassessment: No changes from previously documented assessment. kb3 12:30 General: Appears distressed, uncomfortable, obese, Behavior is cooperative, anxious, kb3 restless. Pain: Complains of pain in right upper quadrant Pain radiates to right mid back and right low back Pain currently is 10 out of 10 on a pain scale. Quality of pain is described as sharp, shooting, stabbing, Pain began 5 days ago. GI: Abdomen is obese, Last BM was November 23, 2021. GI: Bowel sounds Abdomen is tender to palpation Guarding noted in right upper quadrant. : Reports incontinence, since 6 months. 12:30 Neuro: No deficits noted. kb3 15:07 General: Pt resting comfortably, eyes closed. O2 sat noted to be 88% on room air. O2 2L kb3 NC applied. MD notified. Respiratory: Breath sounds are clear Breath sounds are diminished bilaterally. 16:00 General: Updated pt regarding POC including awaiting bed available for admission, NPO, kb3 IVF. Pt and spouse state understanding of all discussed. 18:31 General: Attempted to call report. RN unavailable at this time. kb3 19:00 General: Pt resting comfortably. Updated regarding pending admission. No questions at kb3 this time. 19:32 Neuro: No deficits noted. kb3 Vital Signs: 12:28 BP 145 / 71; Pulse 89; Resp 18; Temp 98.0(TE); Pulse Ox 99% on R/A; Weight 176.45 kg; ld1 Height 5 ft. 5 in. (165.10 cm); Pain 10/10; 12:30 BP 204 / 82; Pulse 86; Resp 24; Pulse Ox 98% ; Weight 176.45 kg; Height 5 ft. 5 in. kb3 (165.10 cm); Pain 10/10; 13:00 BP 196 / 78; Pulse 83; Resp 20; Pulse Ox 99% ; Pain 10/10; kb3 14:00 BP 146 / 100; Pulse 95; Resp 22; Pulse Ox 98% ; Pain 7/10; kb3 15:00 BP 125 / 61; Pulse 79; Resp 20; Pulse Ox 98% ; Pain 2/10; kb3 16:00 BP 133 / 78; Pulse 71; Resp 18; Pulse Ox 100% ; Pain 2/10; kb3 17:00 BP 129 / 70; Pulse 75; Resp 20; Pulse Ox 95% ; Pain 5/10; kb3 18:00 BP 123 / 57; Pulse 80; Resp 20; Pulse Ox 100% ; Pain 5/10; kb3 19:00 BP 126 / 61; Pulse 67; Resp 20; Pulse Ox 100% ; Pain 2/10; kb3 12:30 Body Mass Index 64.73 (176.45 kg, 165.10 cm) kb3 ED Course: 12:23 Patient arrived in ED. mr 12:28 Arm band placed on right wrist. ld1 12:30 Patient has correct armband on for positive identification. Bed in low position. Call kb3 light in reach. Side rails up X 1. Adult w/ patient. Pulse ox on. NIBP on. Warm blanket given. 12:30 No provider procedures requiring assistance completed. Inserted saline lock: 20 gauge kb3 in right antecubital area, using aseptic technique. Blood collected. 12:31 Triage completed. ld1 12:39 Dorian Reza MD is Attending Physician. justo 12:58 Kristen Lizarraga, RN is Primary Nurse. kb3 13:[address] kb3 14:05 Chest Single View XRAY In Process Unspecified. EDMS 14:08 CT Abd/Pelvis - IV Contrast Only In Process Unspecified. EDMS 15:54 Mary Royal MD is Hospitalizing Provider. justo 16:05 US Extremity Venous W Compression Manoj In Process Unspecified. EDMS 16:12 SARS RAPID Sent. kb3 16:12 Troponin High Sensitivity Sent. kb3 19:32 Patient admitted, IV remains in place. kb3 Administered Medications: 13:22 Drug: NS 0.9% 1000 ml Route: IV; Rate: 1 bolus; Site: right antecubital; kb3 14:12 Follow up: Response: No adverse reaction kb3 13:22 Drug: Zofran (Ondansetron) 4 mg Route: IVP; Site: right antecubital; kb3 14:12 Follow up: Response: No adverse reaction kb3 13:22 Drug: morphine 4 mg Route: IVP; Infused Over: 4 mins; Site: right antecubital; kb3 14:11 Follow up: Response: No adverse reaction; Pain is decreased kb3 14:55 Drug: NS 0.9% 1000 ml Route: IV; Rate: 1 bolus; Site: right antecubital; kb3 16:05 Follow up: Response: No adverse reaction; IV Status: Completed infusion; IV Intake: kb3 1000ml 19:56 Follow up: IV Status: Completed infusion; IV Intake: 1000ml kb3 14:55 Drug: Dilaudid (HYDROmorphone) 1 mg Route: IVP; Site: right antecubital; kb3 16:04 Follow up: Response: No adverse reaction; Pain is decreased kb3 14:55 Drug: Zofran (Ondansetron) 4 mg Route: IVP; Site: right antecubital; kb3 16:04 Follow up: Response: No adverse reaction kb3 16:23 Drug: Pepcid (famotidine) 20 mg Route: IVP; Site: right antecubital; kb3 16:30 Follow up: Response: No adverse reaction kb3 16:24 Drug: Lactated Ringers Solution 1000 ml Route: IV; Rate: 125 ml/hr; Site: right kb3 antecubital; 16:30 Follow up: Response: No adverse reaction kb3 19:43 Follow up: IV Status: Infusion continued upon admission; IV Intake: 450ml kb3 Medication: 12:30 VIS not applicable for this client. kb3 Intake: 16:05 IV: 1000ml; Total: 1000ml. kb3 19:43 IV: 450ml; Total: 1450ml. kb3 19:56 IV: 1000ml; Total: 2450ml. kb3 Outcome: 15:55 Decision to Hospitalize by Provider. justo 19:42 Admitted to Med/surg accompanied by doe, Report called to Brenda SNOW kb3 19:42 Condition: stable 19:42 Instructed on the need for admit. 19:56 Patient left the ED. kb3 Signatures: Dispatcher [employer] EDDorian Dominguez MD MD cha Rivera, Mary mr Dibbern, Lauren, RN RN ld1 Kristen Lizarraga RN RN kb3
--- NOTE | 2021-11-24 15:56 | EDPHYS ---
Physician Documentation [facility] Name: Fabiana Garcia Age: 66 yrs Sex: Female : 1955 Arrival Date: 11/24/2021 Time: 12:23 Bed 23 Private MD: Dorian Tang HPI: 11/24 15:47 This 66 yrs old Female presents to ER via Wheelchair with complaints of Flank justo Pain, Back Pain. 15:47 The patient complains of pain in the right mid back and abdomen and right upper jusot quadrant. 15:50 The patient presents with abdominal pain in the epigastric area, in the upper abdomen, justo abdominal distention in the upper abdomen, in the lower abdomen. Onset: The symptoms/episode began/occurred 3 day(s) ago. The pain does not radiate. Onset: The symptoms/episode began/occurred 3 day(s) ago. Modifying factors: The symptoms are alleviated by nothing. the symptoms are aggravated by movement, palpation/percussion. Associated signs and symptoms: The patient has no apparent associated signs or symptoms. The symptoms do not radiate. Associated signs and symptoms: Pertinent positives: nausea and vomiting. The symptoms are described as constant, crampy. Modifying factors: The symptoms are alleviated by nothing, remaining still, the symptoms are aggravated by movement, pressure. Historical: - Allergies: 12:28 No Known Allergies; ld1 - PMHx: 12:28 Hypertensive disorder; ld1 - PSHx: 12:28 gastric bypass; section; ld1 - Immunization history:: Adult Immunizations up to date, Client reports receiving the 2nd dose of the Covid vaccine. - Social history:: Smoking status: Patient denies any tobacco usage or history of. Patient uses alcohol, occasionally. - Family history:: not pertinent. ROS: 15:50 Constitutional: Negative for fever, chills, and weight loss, Eyes: Negative for injury, justo pain, redness, and discharge, ENT: Negative for injury, pain, and discharge, Neck: Negative for injury, pain, and swelling, Cardiovascular: Negative for chest pain, palpitations, and edema, Respiratory: Negative for shortness of breath, cough, wheezing, and pleuritic chest pain, : Negative for injury, bleeding, discharge, and swelling, MS/Extremity: Negative for injury and deformity, Skin: Negative for injury, rash, and discoloration, Neuro: Negative for headache, weakness, numbness, tingling, and seizure, Psych: Negative for depression, anxiety, suicide ideation, homicidal ideation, and hallucinations, Allergy/Immunology: Negative for hives, rash, and allergies, Endocrine: Negative for neck swelling, polydipsia, polyuria, polyphagia, and marked weight changes. 15:50 Abdomen/GI: Positive for abdominal pain, nausea and vomiting, abdominal cramps, abdominal distension, of the posterior aspect of right lateral abdomen, anterior aspect of right lateral abdomen, right upper quadrant and left upper quadrant. Exam: 15:50 Constitutional: This is a well developed, well nourished patient who is awake, alert, justo and in no acute distress. Head/Face: Normocephalic, atraumatic. Eyes: Pupils equal round and reactive to light, extra-ocular motions intact. Lids and lashes normal. Conjunctiva and sclera are non-icteric and not injected. Cornea within normal limits. Periorbital areas with no swelling, redness, or edema. ENT: Nares patent. No nasal discharge, no septal abnormalities noted. Tympanic membranes are normal and external auditory canals are clear. Oropharynx with no redness, swelling, or masses, exudates, or evidence of obstruction, uvula midline. Mucous membranes moist. Neck: Trachea midline, no thyromegaly or masses palpated, and no cervical lymphadenopathy. Supple, full range of motion without nuchal rigidity, or vertebral point tenderness. No Meningismus. Chest/axilla: Normal chest wall appearance and motion. Nontender with no deformity. No lesions are appreciated. Cardiovascular: Regular rate and rhythm with a normal S1 and S2. No gallops, murmurs, or rubs. Normal PMI, no JVD. No pulse deficits. Respiratory: Lungs have equal breath sounds bilaterally, clear to auscultation and percussion. No rales, rhonchi or wheezes noted. No increased work of breathing, no retractions or nasal flaring. Female : Normal external genitalia. Skin: Warm, dry with normal turgor. Normal color with no rashes, no lesions, and no evidence of cellulitis. MS/ Extremity: Pulses equal, no cyanosis. Neurovascular intact. Full, normal range of motion. Neuro: Awake and alert, GCS 15, oriented to person, place, time, and situation. Cranial nerves II-XII grossly intact. Motor strength 5/5 in all extremities. Sensory grossly intact. Cerebellar exam normal. Normal gait. Psych: Awake, alert, with orientation to person, place and time. Behavior, mood, and affect are within normal limits. 15:50 Abdomen/GI: Inspection: distension, that is mild, Bowel sounds: normal, Palpation: mild abdominal tenderness, moderate abdominal tenderness, in the epigastric area, posterior aspect of right lateral abdomen, anterior aspect of right lateral abdomen, right upper quadrant and left upper quadrant, Liver: no appreciated palpable abnormalities, Hernia: not appreciated. 16:12 ECG was reviewed by the Attending Physician. [facility] Vital Signs: 12:28 BP 145 / 71; Pulse 89; Resp 18; Temp 98.0(TE); Pulse Ox 99% on R/A; Weight 176.45 kg; ld1 Height 5 ft. 5 in. (165.10 cm); Pain 10/10; 12:30 BP 204 / 82; Pulse 86; Resp 24; Pulse Ox 98% ; Weight 176.45 kg; Height 5 ft. 5 in. kb3 (165.10 cm); Pain 10/10; 13:00 BP 196 / 78; Pulse 83; Resp 20; Pulse Ox 99% ; Pain 10/10; kb3 14:00 BP 146 / 100; Pulse 95; Resp 22; Pulse Ox 98% ; Pain 7/10; kb3 15:00 BP 125 / 61; Pulse 79; Resp 20; Pulse Ox 98% ; Pain 2/10; kb3 16:00 BP 133 / 78; Pulse 71; Resp 18; Pulse Ox 100% ; Pain 2/10; kb3 17:00 BP 129 / 70; Pulse 75; Resp 20; Pulse Ox 95% ; Pain 5/10; kb3 18:00 BP 123 / 57; Pulse 80; Resp 20; Pulse Ox 100% ; Pain 5/10; kb3 19:00 BP 126 / 61; Pulse 67; Resp 20; Pulse Ox 100% ; Pain 2/10; kb3 12:30 Body Mass Index 64.73 (176.45 kg, 165.10 cm) kb3 MDM: 12:39 Patient medically screened. justo 12:40 Patient medically screened. justo 15:57 Differential diagnosis: UTI, diverticulitis, pancreatitis, diverticulitis, gastritis, justo gastroesophageal reflux disease, myocardia ischemia or infarction, non-specific abd pain. Data reviewed: vital signs, nurses notes, lab test result(s), EKG, radiologic studies, CT scan, plain films. Data interpreted: compliance monitor: rate is 79 beats/min, rhythm is regular, Pulse oximetry: on room air is 98 %. Test interpretation: by ED physician or midlevel provider: ECG, plain radiologic studies. Counseling: I had a detailed discussion with the patient and/or guardian regarding: the historical points, exam findings, and any diagnostic results supporting the discharge/admit diagnosis, lab results, radiology results, the need for further work-up and treatment in the hospital. 11/24 12:51 Order name: CBC with Diff; Complete Time: 13:37 [facility] 11/24 12:51 Order name: CMP; Complete Time: 14:08 [facility] 11/24 12:51 Order name: Lipase; Complete Time: 14:08 [facility] 11/24 13:05 Order name: Urine Dipstick-Ancillary; Complete Time: 13:37 [facility] 11/24 15:47 Order name: Add On-Lab ss 11/24 15:54 Order name: Troponin High Sensitivity; Complete Time: 17:03 [facility] 11/24 12:51 Order name: CT Abd/Pelvis - IV Contrast Only; Complete Time: 14:27 [facility] 11/24 13:15 Order name: Chest Single View XRAY; Complete Time: 14:27 [facility] 11/24 15:18 Order name: US Extremity Venous W Compression Manoj; Complete Time: 17:03 [facility] 11/24 15:56 Order name: SARS RAPID; Complete Time: 17:03 [facility] 11/24 15:58 Order name: Lipid Profile; Complete Time: 17:03 [facility] 11/24 12:51 Order name: IV Saline Lock; Complete Time: 13:12 [facility] 11/24 12:51 Order name: Labs collected and sent; Complete Time: 13:12 [facility] 11/24 12:51 Order name: Urine Dipstick-Ancillary (obtain specimen); Complete Time: 13:04 [facility] 11/24 15:54 Order name: EKG; Complete Time: 15:55 [facility] 11/24 15:54 Order name: EKG - Nurse/Tech; Complete Time: 16:10 [facility] EC:12 Rate is 73 beats/min. Rhythm is regular. QRS [place] is Normal. [place] interval is normal. QRS justo interval is normal. QT interval is normal. No Q waves. T waves are Normal. No ST changes noted. Clinical impression: NSR w/ Non-specific ST/T Changes and No evidence of ischemia. Administered Medications: 13:22 Drug: NS 0.9% 1000 ml Route: IV; Rate: 1 bolus; Site: right antecubital; kb3 14:12 Follow up: Response: No adverse reaction kb3 13:22 Drug: Zofran (Ondansetron) 4 mg Route: IVP; Site: right antecubital; kb3 14:12 Follow up: Response: No adverse reaction kb3 13:22 Drug: morphine 4 mg Route: IVP; Infused Over: 4 mins; Site: right antecubital; kb3 14:11 Follow up: Response: No adverse reaction; Pain is decreased kb3 14:55 Drug: NS 0.9% 1000 ml Route: IV; Rate: 1 bolus; Site: right antecubital; kb3 16:05 Follow up: Response: No adverse reaction; IV Status: Completed infusion; IV Intake: kb3 1000ml 19:56 Follow up: IV Status: Completed infusion; IV Intake: 1000ml kb3 14:55 Drug: Dilaudid (HYDROmorphone) 1 mg Route: IVP; Site: right antecubital; kb3 16:04 Follow up: Response: No adverse reaction; Pain is decreased kb3 14:55 Drug: Zofran (Ondansetron) 4 mg Route: IVP; Site: right antecubital; kb3 16:04 Follow up: Response: No adverse reaction kb3 16:23 Drug: Pepcid (famotidine) 20 mg Route: IVP; Site: right antecubital; kb3 16:30 Follow up: Response: No adverse reaction kb3 16:24 Drug: Lactated Ringers Solution 1000 ml Route: IV; Rate: 125 ml/hr; Site: right kb3 antecubital; 16:30 Follow up: Response: No adverse reaction kb3 19:43 Follow up: IV Status: Infusion continued upon admission; IV Intake: 450ml kb3 Disposition Summary: 11/24/21 15:55 Hospitalization Ordered Hospitalization Status: Observation justo Provider: Mary Royal cha Location: Telemetry/[facility]Sur (Inpatient) justo Condition: Stable justo Problem: new justo Symptoms: have improved justo Bed/Room Type: Standard justo Room Assignment: 224(11/24/21 17:39) dw Diagnosis - Epigastric abdominal tenderness justo - Biliary acute pancreatitis - early justo - Morbid (severe) obesity due to excess calories justo Forms: - Medication Reconciliation Form justo - SBAR form justo Signatures: Dispatcher [employer] EDMS Paloma Mercado RN RN dw Anderson, Corey, MD MD cha Dibbern, Lauren, RN RN ld1 Kristen Lizarraga RN RN kb3 Corrections: (The following items were deleted from the chart) 14:14 13:18 Abdomen Limited+US.RAD.BRZ ordered. EDMS EDMS 17:39 15:55 justo dw
--- NOTE | 2021-11-24 16:24 | RAD REPORT ---
EXAM DESCRIPTION: USExtrem Venous W Compress Bil11/24/2021 4:03 pm CLINICAL HISTORY: Leg swelling COMPARISON: none FINDINGS: The common femoral, superficial femoral, popliteal and posterior tibial veins bilaterally are compressible and demonstrate augmentation. Doppler demonstrates good flow. Grayscale, color and spectral analysis performed on all vessels IMPRESSION: No evidence of deep venous thrombosis involving either lower extremity.
[2021-11-24] MEDS ORDERED: Ringers Lactate 1,000 ML IV ONE (16:26)
[2021-11-24] MEDS ORDERED: FAMOTIDINE 20 MG/2 ML VIAL IV ONE (16:27)
[2021-11-24 16:46] LABS: SARS-CoV-2 Antigen Rapid Res Negative (Negative)
--- NOTE | 2021-11-24 17:48 | P.HP ---
Certification for Inpatient Patient admitted to: Observation With expected LOS: <2 Midnights Practitioner: I am a practitioner with admitting privileges, knowledge of patient current condition, hospital course, and medical plan of care. Services: Services provided to patient in accordance with Admission requirements found in Title 42 Section 412.3 of the Code of Federal Regulations Patient History Date of Service: 11/24/21 Reason for admission: Right flank pain History of Present Illness: 66-year-old morbidly obese woman with a prior history of gastric bypass surgery, hypertension, GERD presented to the emergency department with a complaint of right flank pain of about 2 days duration. Patient described right flank pain, maximum intensity 10/10, pain became worse 2 days ago, worse with breathing and coughing, nonradiating, no known relieving factors. He states that he took BC powder and Tylenol without relief. She denied any fever or dysuria or increased urinary frequency. Work-up in the emergency department with chest x-ray shows no acute disease. CT abdomen and pelvis demonstrated mild pancreatic stranding. Lipase level is normal. UA is negative for UTI. Patient with significant right flank pain during my examination. CBC and blood chemistry unremarkable. Patient is placed under observation for further evaluation and management. Allergies No Known Allergies Allergy (Verified 01/26/19 07:21) Home Medications: Ferrocite 324 mg PO BID 01/26/19 Pantoprazole [Protonix Tab] 40 mg PO DAILY 01/26/19 Trazodone [Desyrel] 50 mg PO BEDTIME 01/26/19 Valacyclovir [Valtrex] 500 mg PO DAILY 01/26/19 - Past Medical/Surgical History Diabetic: No -: insomnia -: GERD -: arthritis -: Gastric Bipass 2010 -: Cholecystecomy 2010 -: x2 - Family History Family History: Reviewed- Non-Contributory - Social History Alcohol use: No CD- Drugs: No Caffeine use: Yes Review of Systems Other: Patient denied any nausea or vomiting. Last meal was this morning. Except as documented, all other systems reviewed and negative. Physical Examination - Physical Exam General: Alert, In no apparent distress, Oriented x3, Obese (Morbidly obese) HEENT: Normocephalic, PERRLA, Mucous membr. moist/pink, EOMI, Sclerae nonicteric Neck: Supple, JVD not distended Respiratory: Clear to auscultation bilaterally, Normal air movement Cardiovascular: Normal pulses, Regular rate/rhythm, Normal S1 S2, No murmurs, Edema (1+ bilateral lower extremity edema) Capillary refill: <2 Seconds Gastrointestinal: Normal bowel sounds, Soft and benign, Non-distended, No tenderness Musculoskeletal: Tenderness (Right flank) Integumentary: No rashes, No erythema, No cyanosis Neurological: Normal speech, Normal strength at 5/5 x4 extr, Cranial nerves 3-12 intact Lymphatics: No axilla or inguinal lymphadenopathy - Studies Laboratory Data (last 24 hrs) 11/24/21 13:09: Triglycerides 63, Cholesterol 185, HDL Cholesterol 87 H, Cholesterol/HDL Ratio 2.13 11/24/21 13:09: Sodium 141, Potassium 4.8, BUN 18, Creatinine 0.90, Glucose 112 H, Total Bilirubin 0.3, AST 23, ALT 22, Alkaline Phosphatase 96, Lipase 100 11/24/21 13:09: WBC 6.1, Hgb 13.6, Hct 40.4, Plt Count 215 Assessment and Plan - Problems (Diagnosis) (1) Acute pancreatitis Current Visit: Yes Status: Acute (2) Right flank pain Current Visit: Yes Status: Acute (3) Morbid obesity Current Visit: Yes Status: Acute (4) GERD (gastroesophageal reflux disease) Current Visit: Yes Status: Acute - Plan Location of patient pain unrelated to acute pancreatitis. Chest x-ray is clear, no evidence of UTI. Place patient under observation. IV hydration with normal saline. CT abdomen with IV contrast done on presentation. Will need to rule out PE with CTA thorax. Will obtain CTA thorax within 24 hours after last IV contrast use. Protonix for possible GERD Supportive measures with pain management as needed. Monitor electrolytes. Reconcile and continue other home medications. - Advance Directives Does patient have a Living Will: No Does patient have a Durable POA for Healthcare: No
[2021-11-24] MEDS ORDERED: ONDANSETRON 4 MG/2 ML VIAL IV PRN (20:11)
[2021-11-24] MEDS ORDERED: SODIUM CHLORIDE 0.9% 10ML INJ IV PRN (20:11)
[2021-11-24] MEDS ORDERED: ACETAMINOPHEN 500 MG TAB PO PRN (20:11)
[2021-11-24] MEDS: NA CHLORIDE 0.9% 1,000 ML IV SCH (20:39)
[2021-11-24] MEDS: HYDROCODONE/APAP 5/325 MG TAB PO PRN (20:40)
[2021-11-24] MEDS: PANTOPRAZOLE 40 MG INJ IVP SCH (20:40)
[2021-11-24] MEDS: ENOXAPARIN 40 MG/0.4 ML SQ SCH (20:44)
[2021-11-24 22:51] VITALS: BMI 58.6
[2021-11-24 23:32] VITALS: O2SAT 99
[2021-11-25] MEDS ORDERED: DIPHENHYDRAMINE 50 MG/ML VIAL IV ONE (01:21)
[2021-11-25] MEDS: HYDROCODONE/APAP 5/325 MG TAB PO PRN ×5 (01:26→18:37)
[2021-11-25] MEDS: NA CHLORIDE 0.9% 1,000 ML IV SCH (05:13)
[2021-11-25 06:23] LABS: Albumin 2.9 g/dL (3.4-5.0); Bilirubin Total 0.4 mg/dL (0.2-1.0); Magnesium 2.1 mg/dL (1.8-2.4); Phosphorus 3.5 mg/dL (2.5-4.9); Potassium 4.3 mmol/L (3.5-5.1); Protein, Total 6.1 g/dL (6.4-8.2)
[2021-11-25 06:37] LABS: Absolute Lymphocytes (CBC) 1.1 K/uL (0.7-4.9); Hematocrit 38.8 % (36.0-45.0); Lymphocytes % 17.9 % (15.3-44.8); MCV 97.5 fL (80-100); MPV 8.8 fL (7.6-11.3); RBC Red Blood Cell Count 3.98 M/uL (3.86-4.86)
[2021-11-25] MEDS ORDERED: VALACYCLOVIR 500 MG TAB PO SCH (09:00)
[2021-11-25] MEDS: ENOXAPARIN 40 MG/0.4 ML SQ SCH (10:18)
[2021-11-25] MEDS: PANTOPRAZOLE 40 MG INJ IVP SCH (10:19)
--- NOTE | 2021-11-25 14:54 | RAD REPORT ---
EXAM DESCRIPTION: CT - Chest For Pe Angio - 11/25/2021 2:42 pm CLINICAL HISTORY: Chest pain. Left flank pain COMPARISON: No comparisons TECHNIQUE: CT angiogram of the pulmonary arteries was performed with MIP. All CT scans are performed using dose optimization technique as appropriate and may include automated exposure control or mA/KV adjustment according to patient size. FINDINGS: No evidence of pulmonary thromboembolism. No acute aortic finding demonstrated. The lungs are mildly emphysematous but clear. No significant pericardial or pleural fluid. No concerning bony finding. Cholecystectomy. Postsurgical changes with small hiatal hernia. IMPRESSION: No evidence of pulmonary thromboembolism. Mild COPD.
[2021-11-25 16:24] VITALS: BP 123/58; TEMP 97.6
--- NOTE | 2021-11-25 16:34 | P.DS ---
Admission Date: 11/24/21 Discharge Date: 11/25/21 Disposition: DC HOME/HOME HEALTH CARE Discharge Condition: FAIR Reason for Admission: Right flank pain - Problems (1) Acute pancreatitis Current Visit: Yes Status: Acute (2) Right flank pain Current Visit: Yes Status: Acute (3) Morbid obesity Current Visit: Yes Status: Acute (4) GERD (gastroesophageal reflux disease) Current Visit: Yes Status: Acute Brief History of Present Illness: 66-year-old morbidly obese woman with a prior history of gastric bypass surgery, hypertension, GERD presented to the emergency department with a complaint of right flank pain of about 2 days duration. Patient described right flank pain, maximum intensity 10/10, pain became worse 2 days ago, worse with breathing and coughing, nonradiating, no known relieving factors. He states that he took BC powder and Tylenol without relief. She denied any fever or dysuria or increased urinary frequency. Work-up in the emergency department with chest x-ray shows no acute disease. CT abdomen and pelvis demonstrated mild pancreatic stranding. Lipase level is normal. UA is negative for UTI. Patient with significant right flank pain during my examination. CBC and blood chemistry unremarkable. Patient was placed under observation for further evaluation and management. Hospital Course: Placed under observation on the medical floor. Her pain was managed with oral norco. CTA thorax to assess for any possible causes of pleurisy including PE but the result was negative. UA no UTI, CT abdomen and pelvis shows no pyelonephritis or kidney stones. Location of pain at the right flank not likely related to acute pancreatitis. Patient tolerated her meals. Vitals are stable. Patient is deemed stable for discharge.. Vital Signs/Physical Exam: Temp Pulse Resp BP Pulse Ox 97.6 F 78 18 123/58 L 99 11/25/21 16:00 11/25/21 16:00 11/25/21 16:00 11/25/21 16:00 11/25/21 16:00 General: Alert, In no apparent distress, Obese HEENT: Mucous membr. moist/pink Neck: JVD not distended Respiratory: Clear to auscultation bilaterally, Normal air movement Cardiovascular: Regular rate/rhythm, Normal S1 S2 Gastrointestinal: Normal bowel sounds, Soft and benign, Non-distended, No tenderness Musculoskeletal: No swelling Integumentary: No cyanosis Neurological: Normal strength at 5/5 x4 extr Laboratory Data at Discharge: WBC 6.3 K/uL (4.3-10.9) 11/25/21 05:55 Hgb 12.7 g/dL (12.0-15.0) 11/25/21 05:55 Hct 38.8 % (36.0-45.0) 11/25/21 05:55 Plt Count 174 K/uL (152-406) 11/25/21 05:55 Sodium 143 mmol/L (136-145) 11/25/21 05:55 Potassium 4.3 mmol/L (3.5-5.1) 11/25/21 05:55 BUN 15 mg/dL (7-18) 11/25/21 05:55 Creatinine 0.80 mg/dL (0.55-1.3) 11/25/21 05:55 Glucose 92 mg/dL (74-106) 11/25/21 05:55 Phosphorus 3.5 mg/dL (2.5-4.9) 11/25/21 05:55 Magnesium 2.1 mg/dL (1.8-2.4) 11/25/21 05:55 Total Bilirubin 0.4 mg/dL (0.2-1.0) 11/25/21 05:55 AST 22 U/L (15-37) 11/25/21 05:55 ALT 21 U/L (12-78) 11/25/21 05:55 Alkaline Phosphatase 92 U/L (45-117) 11/25/21 05:55 Triglycerides 63 mg/dL (<150) 11/24/21 13:09 Cholesterol 185 mg/dL (<200) 11/24/21 13:09 HDL Cholesterol 87 mg/dL (40-60) H 11/24/21 13:09 Cholesterol/HDL Ratio 2.13 11/24/21 13:09 Lipase 100 U/L (73-393) 11/24/21 13:09 Home Medications: Ferrocite 0.5 tab PO SEECOM 01/26/19 Pantoprazole [Protonix Tab*] 40 mg PO SEECOM 01/26/19 Trazodone [Desyrel*] 100 mg PO BEDTIME 01/26/19 Valacyclovir [Valtrex*] 1,000 mg PO DAILY 01/26/19 Amlodipine [Norvasc*] 5 mg PO DAILY 11/24/21 Losartan/Hydrochlorothiazide [Losartan-Hctz 50-12.5 mg Tab] 1 tab PO DAILY 11/24/21 Hydrocodone 5/APAP 325 [[place] 5/325] 1 tab PO Q6H PRN #20 tab 11/25/21 New Medications: Hydrocodone 5/APAP 325 [[place] 5/325] 1 tab PO Q6H PRN #20 tab PRN Reason: Pain Diet: AHA Activity: Fall precautions Followup: NONE,NONE [Primary Care Provider] - 1-2 Weeks
--- NOTE | 2021-11-27 08:22 | EKG ---
Test Date: 2021-11-24 Test Time: 16:04:51 [employer] Resource [employer] Specialist: RANI MEASUREMENT RESULTS: Intervals: Rate: 73 TN: 136 QRSD: 80 QT: 416 QTc: 458 [place]: P: 72 TN: 136 QRS: 14 T: 60 INTERPRETIVE STATEMENTS: Normal sinus rhythm Normal ECG Compared to ECG 11/17/2018 07:24:30 No significant changes Electronically Signed On 11-27-21 08:12:30 CDT by Mark Spivey
== END 2021-11-25 20:52 | disposition home health service (06) ==
LOC: ER 12:18 → ERHOLD 17:31 → 2ND 18:08
PROVIDERS: ADMIT Internal Medicine; ATTEND Internal Medicine
DX: K85.90 Acute pancreatitis without necrosis or infection, unspecified (principal); K21.9 Gastro-esophageal reflux disease without esophagitis; R10.9 Unspecified abdominal pain; G47.00 Insomnia, unspecified; I10 Essential (primary) hypertension; M19.90 Unspecified osteoarthritis, unspecified site; E66.01 Morbid (severe) obesity due to excess calories; Z68.43 Body mass index [BMI] 50.0-59.9, adult; Z79.899 Other long term (current) drug therapy; Z98.84 Bariatric surgery status; Z90.49 Acquired absence of other specified parts of digestive tract; Z20.822 Contact with and (suspected) exposure to COVID-19
CPT/HCPCS: 96361; 93005; 85025 ×2; 36415; 83735; 84100; 80061; 81003; 84484; 83690; 80053 ×2; 71275; 74177; 71045; 93970; 94760 ×2; 96375; 96374; 99285; 87811; Q9967; J1200; C9113 ×2; J1650 ×2; J1170; J7120; J7030 ×4; J2405 ×2; G0378 ×3

== ENCOUNTER 2022-05-27 05:31 | Inpatient (IN) | payer OTHER ==
--- OUTSIDE RECORDS SUMMARY | 2022-05-27 05:37 | XMS REPORT | Continuity of Care Document ---
:1955 Author Organization [facility] t Address Formerly [facility], [facility] 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 Herpes 11-30 Medical simplex Simplex 00:00: infection Infection 00 Morbid Morbid Problem Active [facility] obesity Obesity - Medical 00:00: 00 Insomnia Insomnia Problem Active [facility] 11-30 [facility] 00:00: 00 Obstructiv Obstructiv Problem Active [facility] sleep e Sleep 11-30 Medical apnea Apnea 00:00: syndrome Syndrome 00 Hypertensi Hypertensi Problem Active [facility] ve ve 11-30 Medical disorder Disorder 00:00: 00 Gastroesop Gastroesop Problem Active [facility] hageal hageal 11-30 Medical reflux Reflux 00:00: disease Disease 00 Functional Functional Problem Active 2021-0 [facility] gait Gait 11-30 Medical abnormalit Abnormalit 00:00: y y 00 Body mass Body Mass Problem Active [facility] via index 40+ Index 40+ 8-19 Medi armando - severely - Severely 00:00: obese Obese 00 Allergies, Adverse Reactions, Alerts This patient has no known allergies or adverse reactions. Social History Smoking Status Start Date Stop Date Source Never Smoker [facility] Medications Ordered Filled Start Stop Current Ordering Indication Dosage Frequency Signature Comments Components Source Medication Medication Date Date Medication? Clinician (SIG) Name Name amlodipine amlodipine No amlodipine [facility] 5 mg tablet 5 mg tablet 5 mg M edical TAKE ONE TAKE ONE tablet (1) (1) TAKE ONE TABLET(S) TABLET(S) (1) BY MOUTH BY MOUTH TABLET(S) DAILY. DAILY. BY MOUTH DAILY. hydrocodone hydrocodone No hydrocodon [facility] 5 5 e 5 [facility] mg-acetamin mg-acetamin mg-acetami ophen 325 ophen 325 nophen 325 mg tablet mg tablet mg tablet TAKE ONE TAKE ONE TAKE ONE (1) (1) (1) TABLET(S) TABLET(S) TABLET(S) BY MOUTH BY MOUTH BY MOUTH EVERY SIX EVERY SIX EVERY SIX HOURS HOURS HOURS NEEDED FOR NEEDED FOR NEEDED FOR PAIN. PAIN. PAIN. losartan 50 losartan 50 No losartan [facility] mg-hydrochl mg-hydrochl 50 M edical orothiazide orothiazide mg-hydroch 12.5 mg 12.5 mg lorothiazi tablet TAKE tablet TAKE de 12.5 mg ONE (1) ONE (1) tablet TABLET(S) TABLET(S) TAKE ONE BY MOUTH BY MOUTH (1) DAILY. DAILY. TABLET(S) BY MOUTH DAILY. pantoprazol pantoprazol No pantoprazo [facility] e 40 mg e 40 mg le 40 mg Medic al tablet,maria elena tablet,maria elena tablet,del yed release yed release ayed TAKE ONE TAKE ONE release (1) (1) TAKE ONE TABLET(S) TABLET(S) (1) BY MOUTH BY MOUTH TABLET(S) EVERY OTHER EVERY OTHER BY MOUTH DAY. DAY. EVERY OTHER DAY. trazodone trazodone No trazodone [facility] 50 mg 50 mg 50 mg Medical tablet TAKE tablet TAKE tablet TWO (2) TWO (2) TAKE TWO TABLET(S) TABLET(S) (2) BY MOUTH AT BY MOUTH AT TABLET(S) BEDTIME. BEDTIME. BY MOUTH AT BEDTIME. valacyclovi valacyclovi No valacyclov [facility] r 500 mg r 500 mg ir 500 mg Me dical tablet TAKE tablet TAKE tablet ONE TABLET ONE TABLET TAKE ONE BY MOUTH BY MOUTH TABLET BY ONCE A DAY ONCE A DAY MOUTH ONCE A DAY albuterol albuterol No 2puff(s Q4H albuterol [facility] sulfate HFA sulfate HFA ) sulfate Medical 90 90 HFA 90 mcg/actuati mcg/actuati mcg/actuat on aerosol on aerosol ion inhaler inhaler aerosol Inhale 2 Inhale 2 inhaler puffs every puffs every Inhale 2 4 hours by 4 hours by puffs inhalation inhalation every 4 route as route as hours by needed. needed. inhalation route as needed. amlodipine amlodipine No amlodipine [facility] 5 mg tablet 5 mg tablet 5 mg M edical TAKE ONE TAKE ONE tablet (1) (1) TAKE ONE TABLET(S) TABLET(S) (1) BY MOUTH BY MOUTH TABLET(S) DAILY. DAILY. BY MOUTH DAILY. gabapentin gabapentin No 1capsul TID gabapentin [facility] 100 mg 100 mg e(s) 100 mg Medical capsule capsule capsule Take 1 Take 1 Take 1 capsule 3 capsule 3 capsule 3 times a day times a day times a by oral by oral day by route. route. oral route. hydrocodone hydrocodone No hydrocodon [facility] 5 5 e 5 Medical mg-acetamin mg-acetamin mg-acetami ophen 325 ophen 325 nophen 325 mg tablet mg tablet mg tablet TAKE ONE TAKE ONE TAKE ONE (1) (1) (1) TABLET(S) TABLET(S) TABLET(S) BY MOUTH BY MOUTH BY MOUTH EVERY SIX EVERY SIX EVERY SIX HOURS HOURS HOURS NEEDED FOR NEEDED FOR NEEDED FOR PAIN. PAIN. PAIN. losartan 50 losartan 50 No losartan [facility] mg-hydrochl mg-hydrochl 50 M edical orothiazide orothiazide mg-hydroch 12.5 mg 12.5 mg lorothiazi tablet TAKE tablet TAKE de 12.5 mg ONE (1) ONE (1) tablet TABLET(S) TABLET(S) TAKE ONE BY MOUTH BY MOUTH (1) DAILY. DAILY. TABLET(S) BY MOUTH DAILY. oxybutynin oxybutynin No 1 Q1D oxybutynin [facility] chloride ER chloride ER chloride Medical 5 mg 5 mg ER 5 mg tablet,exte tablet,exte tablet,ext nded nded ended release 24 release 24 release 24 hr Take 1 hr Take 1 hr Take 1 tablet tablet tablet every day every day every day by oral by oral by oral route. route. route. pantoprazol pantoprazol No pantoprazo [facility] e 40 mg e 40 mg le 40 mg Medic al tablet,maria elena tablet,maria elena tablet,del yed release yed release ayed TAKE ONE TAKE ONE release (1) (1) TAKE ONE TABLET(S) TABLET(S) (1) BY MOUTH BY MOUTH TABLET(S) EVERY OTHER EVERY OTHER BY MOUTH DAY. DAY. EVERY OTHER DAY. trazodone trazodone No trazodone [facility] 50 mg 50 mg 50 mg Medical tablet TAKE tablet TAKE tablet TWO (2) TWO (2) TAKE TWO TABLET(S) TABLET(S) (2) BY MOUTH AT BY MOUTH AT TABLET(S) BEDTIME. BEDTIME. BY MOUTH AT BEDTIME. valacyclovi valacyclovi No valacyclov [facility] r 500 mg r 500 mg ir 500 mg Me dical tablet TAKE tablet TAKE tablet ONE (1) ONE (1) TAKE ONE TABLET(S) TABLET(S) (1) BY MOUTH BY MOUTH TABLET(S) ONCE A DAY. ONCE A DAY. BY MOUTH ONCE A DAY. albuterol albuterol No albuterol [facility] sulfate HFA sulfate HFA sulfate Medical 90 90 HFA 90 mcg/actuati mcg/actuati mcg/actuat on aerosol on aerosol ion inhaler inhaler aerosol INHALE TWO INHALE TWO inhaler (2) PUFFS (2) PUFFS INHALE TWO BY MOUTH BY MOUTH (2) PUFFS EVERY FOUR EVERY FOUR BY MOUTH HOURS HOURS EVERY FOUR NEEDED. NEEDED. HOURS NEEDED. amlodipine amlodipine No amlodipine [facility] 5 mg tablet 5 mg tablet 5 mg M edical TAKE ONE TAKE ONE tablet (1) (1) TAKE ONE TABLET(S) TABLET(S) (1) BY MOUTH BY MOUTH TABLET(S) DAILY. DAILY. BY MOUTH DAILY. gabapentin gabapentin No gabapentin [facility] 100 mg 100 mg 100 mg Medical capsule capsule capsule TAKE ONE TAKE ONE TAKE ONE (1) (1) (1) CAPSULE(S) CAPSULE(S) CAPSULE(S) BY MOUTH BY MOUTH BY MOUTH THREE TIMES THREE TIMES THREE A DAY. A DAY. TIMES A DAY. losartan 50 losartan 50 No losartan [facility] mg-hydrochl mg-hydrochl 50 M edical orothiazide orothiazide mg-hydroch 12.5 mg 12.5 mg lorothiazi tablet TAKE tablet TAKE de 12.5 mg ONE (1) ONE (1) tablet TABLET(S) TABLET(S) TAKE ONE BY MOUTH BY MOUTH (1) DAILY. DAILY. TABLET(S) BY MOUTH DAILY. meloxicam meloxicam No meloxicam [facility] 7.5 mg 7.5 mg 7.5 mg Medical tablet TAKE tablet TAKE tablet ONE (1) ONE (1) TAKE ONE TABLET(S) TABLET(S) (1) BY MOUTH BY MOUTH TABLET(S) ONCE A DAY. ONCE A DAY. BY MOUTH ONCE A DAY. oxybutynin oxybutynin No oxybutynin [facility] chloride ER chloride ER chloride Medical 5 mg 5 mg ER 5 mg tablet,exte tablet,exte tablet,ext nded nded ended release 24 release 24 release 24 hr TAKE ONE hr TAKE ONE hr TAKE (1) (1) ONE (1) TABLET(S) TABLET(S) TABLET(S) BY MOUTH BY MOUTH BY MOUTH ONCE A DAY. ONCE A DAY. ONCE A DAY. pantoprazol pantoprazol No pantoprazo [facility] e 40 mg e 40 mg le 40 mg Medic al tablet,maria elena tablet,maria elena tablet,del yed release yed release ayed TAKE ONE TAKE ONE release (1) (1) TAKE ONE TABLET(S) TABLET(S) (1) BY MOUTH BY MOUTH TABLET(S) EVERY OTHER EVERY OTHER BY MOUTH DAY. DAY. EVERY OTHER DAY. trazodone trazodone No trazodone [facility] 50 mg 50 mg 50 mg Medical tablet TAKE tablet TAKE tablet TWO (2) TWO (2) TAKE TWO TABLET(S) TABLET(S) (2) BY MOUTH AT BY MOUTH AT TABLET(S) BEDTIME. BEDTIME. BY MOUTH AT BEDTIME. valacyclovi valacyclovi No valacyclov [facility] r 500 mg r 500 mg ir 500 mg Me dical tablet TAKE tablet TAKE tablet ONE (1) ONE (1) TAKE ONE TABLET(S) TABLET(S) (1) BY MOUTH BY MOUTH TABLET(S) ONCE A DAY. ONCE A DAY. BY MOUTH ONCE A DAY. albuterol albuterol No albuterol [facility] sulfate HFA sulfate HFA sulfate Medical 90 90 HFA 90 mcg/actuati mcg/actuati mcg/actuat on aerosol on aerosol ion inhaler inhaler aerosol INHALE TWO INHALE TWO inhaler (2) PUFFS (2) PUFFS INHALE TWO BY MOUTH BY MOUTH (2) PUFFS EVERY FOUR EVERY FOUR BY MOUTH HOURS HOURS EVERY FOUR NEEDED. NEEDED. HOURS NEEDED. amlodipine amlodipine No amlodipine [facility] 5 mg tablet 5 mg tablet 5 mg M edical TAKE ONE TAKE ONE tablet (1) (1) TAKE ONE TABLET(S) TABLET(S) (1) BY MOUTH BY MOUTH TABLET(S) DAILY. DAILY. BY MOUTH DAILY. gabapentin gabapentin No gabapentin [facility] 100 mg 100 mg 100 mg Medical capsule capsule capsule TAKE ONE TAKE ONE TAKE ONE (1) (1) (1) CAPSULE(S) CAPSULE(S) CAPSULE(S) BY MOUTH BY MOUTH BY MOUTH THREE TIMES THREE TIMES THREE A DAY. A DAY. TIMES A DAY. losartan 50 losartan 50 No losartan [facility] mg-hydrochl mg-hydrochl 50 M edical orothiazide orothiazide mg-hydroch 12.5 mg 12.5 mg lorothiazi tablet TAKE tablet TAKE de 12.5 mg ONE (1) ONE (1) tablet TABLET(S) TABLET(S) TAKE ONE BY MOUTH BY MOUTH (1) DAILY. DAILY. TABLET(S) BY MOUTH DAILY. meloxicam meloxicam No meloxicam [facility] 7.5 mg 7.5 mg 7.5 mg Medical tablet TAKE tablet TAKE tablet ONE (1) ONE (1) TAKE ONE TABLET(S) TABLET(S) (1) BY MOUTH BY MOUTH TABLET(S) ONCE A DAY. ONCE A DAY. BY MOUTH ONCE A DAY. oxybutynin oxybutynin No oxybutynin [facility] chloride ER chloride ER chloride Medical 5 mg 5 mg ER 5 mg tablet,exte tablet,exte tablet,ext nded nded ended release 24 release 24 release 24 hr TAKE ONE hr TAKE ONE hr TAKE (1) (1) ONE (1) TABLET(S) TABLET(S) TABLET(S) BY MOUTH BY MOUTH BY MOUTH ONCE A DAY. ONCE A DAY. ONCE A DAY. pantoprazol pantoprazol No pantoprazo [facility] e 40 mg e 40 mg le 40 mg Medic al tablet,maria elena tablet,maria elena tablet,del yed release yed release ayed TAKE ONE TAKE ONE release (1) (1) TAKE ONE TABLET(S) TABLET(S) (1) BY MOUTH BY MOUTH TABLET(S) EVERY OTHER EVERY OTHER BY MOUTH DAY. DAY. EVERY OTHER DAY. trazodone trazodone No trazodone [facility] 50 mg 50 mg 50 mg Medical tablet TAKE tablet TAKE tablet TWO (2) TWO (2) TAKE TWO TABLET(S) TABLET(S) (2) BY MOUTH AT BY MOUTH AT TABLET(S) BEDTIME. BEDTIME. BY MOUTH AT BEDTIME. valacyclovi valacyclovi No valacyclov [facility] r 500 mg r 500 mg ir 500 mg Me dical tablet TAKE tablet TAKE tablet ONE (1) ONE (1) TAKE ONE TABLET(S) TABLET(S) (1) BY MOUTH BY MOUTH TABLET(S) ONCE A DAY. ONCE A DAY. BY MOUTH ONCE A DAY. albuterol albuterol No albuterol [facility] sulfate HFA sulfate HFA sulfate Medical 90 90 HFA 90 mcg/actuati mcg/actuati mcg/actuat on aerosol on aerosol ion inhaler inhaler aerosol INHALE TWO INHALE TWO inhaler (2) PUFFS (2) PUFFS INHALE TWO BY MOUTH BY MOUTH (2) PUFFS EVERY FOUR EVERY FOUR BY MOUTH HOURS HOURS EVERY FOUR NEEDED. NEEDED. HOURS NEEDED. amlodipine amlodipine No amlodipine [facility] 5 mg tablet 5 mg tablet 5 mg M edical TAKE ONE TAKE ONE tablet (1) (1) TAKE ONE TABLET(S) TABLET(S) (1) BY MOUTH BY MOUTH TABLET(S) DAILY. DAILY. BY MOUTH DAILY. azithromyci azithromyci No azithromyc [facility] n 250 mg n 250 mg in 250 mg Me dical tablet TAKE tablet TAKE tablet 2 TABLETS 2 TABLETS TAKE 2 (500 MG) BY (500 MG) BY TABLETS ORAL ROUTE ORAL ROUTE (500 MG) ONCE DAILY ONCE DAILY BY ORAL FOR 1 DAY FOR 1 DAY ROUTE ONCE THEN 1 THEN 1 DAILY FOR TABLET (250 TABLET (250 1 DAY THEN MG) BY ORAL MG) BY ORAL 1 TABLET ROUTE ONCE ROUTE ONCE (250 MG) DAILY FOR 4 DAILY FOR 4 BY ORAL DAYS DAYS ROUTE ONCE DAILY FOR 4 DAYS benzonatate benzonatate No 1capsul TID benzonatat [facility] 100 mg 100 mg e(s) e 100 mg Medical capsule capsule capsule Take 1 Take 1 Take 1 capsule 3 capsule 3 capsule 3 times a day times a day times a by oral by oral day by route as route as oral route needed. needed. as needed. gabapentin gabapentin No gabapentin [facility] 100 mg 100 mg 100 mg Medical capsule capsule capsule TAKE ONE TAKE ONE TAKE ONE (1) (1) (1) CAPSULE(S) CAPSULE(S) CAPSULE(S) BY MOUTH BY MOUTH BY MOUTH THREE TIMES THREE TIMES THREE A DAY. A DAY. TIMES A DAY. losartan 50 losartan 50 No losartan [facility] mg-hydrochl mg-hydrochl 50 M edical orothiazide orothiazide mg-hydroch 12.5 mg 12.5 mg lorothiazi tablet TAKE tablet TAKE de 12.5 mg ONE (1) ONE (1) tablet TABLET(S) TABLET(S) TAKE ONE BY MOUTH BY MOUTH (1) DAILY. DAILY. TABLET(S) BY MOUTH DAILY. Medrol Medrol No Medrol [facility] (Jose L) 4 mg (Jose L) 4 mg (Jose L) 4 mg Medical tablets in tablets in tablets in a dose pack a dose pack a dose FOLLOW FOLLOW pack INSTRUCTION INSTRUCTION FOLLOW S ON S ON INSTRUCTIO PACKAGE PACKAGE NS ON PACKAGE meloxicam meloxicam No meloxicam [facility] 7.5 mg 7.5 mg 7.5 mg Medical tablet TAKE tablet TAKE tablet ONE (1) ONE (1) TAKE ONE TABLET(S) TABLET(S) (1) BY MOUTH BY MOUTH TABLET(S) ONCE A DAY. ONCE A DAY. BY MOUTH ONCE A DAY. oxybutynin oxybutynin No oxybutynin [facility] chloride ER chloride ER chloride Medical 5 mg 5 mg ER 5 mg tablet,exte tablet,exte tablet,ext nded nded ended release 24 release 24 release 24 hr TAKE ONE hr TAKE ONE hr TAKE (1) (1) ONE (1) TABLET(S) TABLET(S) TABLET(S) BY MOUTH BY MOUTH BY MOUTH ONCE A DAY. ONCE A DAY. ONCE A DAY. pantoprazol pantoprazol No pantoprazo [facility] e 40 mg e 40 mg le 40 mg Medic al tablet,maria elena tablet,maria elena tablet,del yed release yed release ayed TAKE ONE TAKE ONE release (1) (1) TAKE ONE TABLET(S) TABLET(S) (1) BY MOUTH BY MOUTH TABLET(S) EVERY OTHER EVERY OTHER BY MOUTH DAY. DAY. EVERY OTHER DAY. trazodone trazodone No trazodone [facility] 50 mg 50 mg 50 mg Medical tablet TAKE tablet TAKE tablet TWO (2) TWO (2) TAKE TWO TABLET(S) TABLET(S) (2) BY MOUTH AT BY MOUTH AT TABLET(S) BEDTIME. BEDTIME. BY MOUTH AT BEDTIME. valacyclovi valacyclovi No valacyclov [facility] r 500 mg r 500 mg ir 500 mg Me dical tablet TAKE tablet TAKE tablet ONE (1) ONE (1) TAKE ONE TABLET(S) TABLET(S) (1) BY MOUTH BY MOUTH TABLET(S) ONCE A DAY. ONCE A DAY. BY MOUTH ONCE A DAY. albuterol albuterol No albuterol [facility] sulfate HFA sulfate HFA sulfate Medical 90 90 HFA 90 mcg/actuati mcg/actuati mcg/actuat on aerosol on aerosol ion inhaler inhaler aerosol INHALE TWO INHALE TWO inhaler (2) PUFFS (2) PUFFS INHALE TWO BY MOUTH BY MOUTH (2) PUFFS EVERY FOUR EVERY FOUR BY MOUTH HOURS HOURS EVERY FOUR NEEDED. NEEDED. HOURS NEEDED. amlodipine amlodipine No amlodipine [facility] 5 mg tablet 5 mg tablet 5 mg M edical TAKE ONE TAKE ONE tablet (1) (1) TAKE ONE TABLET(S) TABLET(S) (1) BY MOUTH BY MOUTH TABLET(S) DAILY. DAILY. BY MOUTH DAILY. gabapentin gabapentin No gabapentin [facility] 100 mg 100 mg 100 mg Medical capsule capsule capsule TAKE ONE TAKE ONE TAKE ONE (1) (1) (1) CAPSULE(S) CAPSULE(S) CAPSULE(S) BY MOUTH BY MOUTH BY MOUTH THREE TIMES THREE TIMES THREE A DAY. A DAY. TIMES A DAY. hydrocodone hydrocodone No hydrocodon [facility] 5 5 e 5 Medical mg-acetamin mg-acetamin mg-acetami ophen 325 ophen 325 nophen 325 mg tablet mg tablet mg tablet TAKE ONE TAKE ONE TAKE ONE (1) (1) (1) TABLET(S) TABLET(S) TABLET(S) BY MOUTH BY MOUTH BY MOUTH EVERY SIX EVERY SIX EVERY SIX HOURS HOURS HOURS NEEDED FOR NEEDED FOR NEEDED FOR PAIN. PAIN. PAIN. losartan 50 losartan 50 No losartan [facility] mg-hydrochl mg-hydrochl 50 M edical orothiazide orothiazide mg-hydroch 12.5 mg 12.5 mg lorothiazi tablet TAKE tablet TAKE de 12.5 mg ONE (1) ONE (1) tablet TABLET(S) TABLET(S) TAKE ONE BY MOUTH BY MOUTH (1) DAILY. DAILY. TABLET(S) BY MOUTH DAILY. oxybutynin oxybutynin No oxybutynin [facility] chloride ER chloride ER chloride Medical 5 mg 5 mg ER 5 mg tablet,exte tablet,exte tablet,ext nded nded ended release 24 release 24 release 24 hr TAKE ONE hr TAKE ONE hr TAKE (1) (1) ONE (1) TABLET(S) TABLET(S) TABLET(S) BY MOUTH BY MOUTH BY MOUTH ONCE A DAY. ONCE A DAY. ONCE A DAY. pantoprazol pantoprazol No pantoprazo [facility] e 40 mg e 40 mg le 40 mg Medic al tablet,maria elena tablet,maria elena tablet,del yed release yed release ayed TAKE ONE TAKE ONE release (1) (1) TAKE ONE TABLET(S) TABLET(S) (1) BY MOUTH BY MOUTH TABLET(S) EVERY OTHER EVERY OTHER BY MOUTH DAY. DAY. EVERY OTHER DAY. trazodone trazodone No trazodone [facility] 50 mg 50 mg 50 mg [facility] tablet TAKE tablet TAKE tablet TWO (2) TWO (2) TAKE TWO TABLET(S) TABLET(S) (2) BY MOUTH AT BY MOUTH AT TABLET(S) BEDTIME. BEDTIME. BY MOUTH AT BEDTIME. valacyclovi valacyclovi No valacyclov [facility] r 500 mg r 500 mg ir 500 mg Me dical tablet TAKE tablet TAKE tablet ONE (1) ONE (1) TAKE ONE TABLET(S) TABLET(S) (1) BY MOUTH BY MOUTH TABLET(S) ONCE A DAY. ONCE A DAY. BY MOUTH ONCE A DAY. albuterol albuterol No albuterol [facility] sulfate HFA sulfate HFA sulfate Medical 90 90 HFA 90 mcg/actuati mcg/actuati mcg/actuat on aerosol on aerosol ion inhaler inhaler aerosol INHALE TWO INHALE TWO inhaler (2) PUFFS (2) PUFFS INHALE TWO BY MOUTH BY MOUTH (2) PUFFS EVERY FOUR EVERY FOUR BY MOUTH HOURS HOURS EVERY FOUR NEEDED. NEEDED. HOURS NEEDED. amlodipine amlodipine No amlodipine [facility] 5 mg tablet 5 mg tablet 5 mg M edical TAKE ONE TAKE ONE tablet (1) (1) TAKE ONE TABLET(S) TABLET(S) (1) BY MOUTH BY MOUTH TABLET(S) DAILY. DAILY. BY MOUTH DAILY. gabapentin gabapentin No gabapentin [facility] 100 mg 100 mg 100 mg Medical capsule capsule capsule TAKE ONE TAKE ONE TAKE ONE (1) (1) (1) CAPSULE(S) CAPSULE(S) CAPSULE(S) BY MOUTH BY MOUTH BY MOUTH THREE TIMES THREE TIMES THREE A DAY. A DAY. TIMES A DAY. hydrocodone hydrocodone No hydrocodon [facility] 5 5 e 5 [facility] mg-acetamin mg-acetamin mg-acetami ophen 325 ophen 325 nophen 325 mg tablet mg tablet mg tablet TAKE ONE TAKE ONE TAKE ONE (1) (1) (1) TABLET(S) TABLET(S) TABLET(S) BY MOUTH BY MOUTH BY MOUTH EVERY SIX EVERY SIX EVERY SIX HOURS HOURS HOURS NEEDED FOR NEEDED FOR NEEDED FOR PAIN. PAIN. PAIN. losartan 50 losartan 50 No losartan [facility] mg-hydrochl mg-hydrochl 50 M edical orothiazide orothiazide mg-hydroch 12.5 mg 12.5 mg lorothiazi tablet TAKE tablet TAKE de 12.5 mg ONE (1) ONE (1) tablet TABLET(S) TABLET(S) TAKE ONE BY MOUTH BY MOUTH (1) DAILY. DAILY. TABLET(S) BY MOUTH DAILY. meloxicam meloxicam No 1 Q1D meloxicam [facility] 7.5 mg 7.5 mg 7.5 mg Medical tablet Take tablet Take tablet 1 tablet 1 tablet Take 1 every day every day tablet by oral by oral every day route. route. by oral route. oxybutynin oxybutynin No oxybutynin [facility] chloride ER chloride ER chloride Medical 5 mg 5 mg ER 5 mg tablet,exte tablet,exte tablet,ext nded nded ended release 24 release 24 release 24 hr TAKE ONE hr TAKE ONE hr TAKE (1) (1) ONE (1) TABLET(S) TABLET(S) TABLET(S) BY MOUTH BY MOUTH BY MOUTH ONCE A DAY. ONCE A DAY. ONCE A DAY. pantoprazol pantoprazol No pantoprazo [facility] e 40 mg e 40 mg le 40 mg Medic al tablet,maria elena tablet,maria elena tablet,del yed release yed release ayed TAKE ONE TAKE ONE release (1) (1) TAKE ONE TABLET(S) TABLET(S) (1) BY MOUTH BY MOUTH TABLET(S) EVERY OTHER EVERY OTHER BY MOUTH DAY. DAY. EVERY OTHER DAY. trazodone trazodone No trazodone [facility] 50 mg 50 mg 50 mg Medical tablet TAKE tablet TAKE tablet TWO (2) TWO (2) TAKE TWO TABLET(S) TABLET(S) (2) BY MOUTH AT BY MOUTH AT TABLET(S) BEDTIME. BEDTIME. BY MOUTH AT BEDTIME. valacyclovi valacyclovi No valacyclov [facility] r 500 mg r 500 mg ir 500 mg Me dical tablet TAKE tablet TAKE tablet ONE (1) ONE (1) TAKE ONE TABLET(S) TABLET(S) (1) BY MOUTH BY MOUTH TABLET(S) ONCE A DAY. ONCE A DAY. BY MOUTH ONCE A DAY. Vital Signs Vital Name Observation Time Observation Value Comments Source BP Diastolic 2022-04-26 00:00:00 81 mm[Hg] [facility] Height 2022-04-26 00:00:00 65 [in_i] [facility] BMI (Body Mass Index) 2022-04-26 00:00:00 58.6 kg/m2 [facility] BP Systolic 2022-04-26 00:00:00 137 mm[Hg] [facility] Body Weight 2022-04-26 00:00:00 5632 [oz_av] [facility] BP Diastolic 2022-03-12 00:00:00 83 mm[Hg] [facility] Height 2022-03-12 00:00:00 65 [in_i] [facility] BMI (Body Mass Index) 2022-03-12 00:00:00 58.6 kg/m2 [facility] BP Systolic 2022-03-12 00:00:00 125 mm[Hg] [facility] Body Weight 2022-03-12 00:00:00 5632 [oz_av] [facility] Height 2022-02-20 00:00:00 65 [in_i] [facility] BMI (Body Mass Index) 2022-02-20 00:00:00 58.6 kg/m2 [facility] 2022-02-20 00:00:00 5632 [oz_av] [facility] BP Diastolic 2022-01-23 00:00:00 75 mm[Hg] [facility] Height 2022-01-23 00:00:00 65 [in_i] [facility] BMI (Body Mass Index) 2022-01-23 00:00:00 58.6 kg/m2 [facility] BP Systolic 2022-01-23 00:00:00 120 mm[Hg] [facility] Body Weight 2022-01-23 00:00:00 5632 [oz_av] [facility] BP Diastolic 2022-01-02 00:00:00 59 mm[Hg] [facility] Height 2022-01-02 00:00:00 65 [in_i] [facility] BMI (Body Mass Index) 2022-01-02 00:00:00 58.6 kg/m2 [facility] BP Systolic 2022-01-02 00:00:00 119 mm[Hg] [facility] Body Weight 2022-01-02 00:00:00 5632 [oz_av] [facility] BP Diastolic 2021-12-19 00:00:00 69 mm[Hg] [facility] Height 2021-12-19 00:00:00 65 [in_i] [facility] BMI (Body Mass Index) 2021-12-19 00:00:00 58.6 kg/m2 [facility] BP Systolic 2021-12-19 00:00:00 119 mm[Hg] [facility] Body Weight 2021-12-19 00:00:00 5632 [oz_av] [facility] BP Diastolic 2021-11-30 00:00:00 68 mm[Hg] [facility] Height 2021-11-30 00:00:00 65 [in_i] [facility] BMI (Body Mass Index) 2021-11-30 00:00:00 58.6 kg/m2 [facility] BP Systolic 2021-11-30 00:00:00 122 mm[Hg] [facility] Body Weight 2021-11-30 00:00:00 5632 [oz_av] [facility] Procedures Procedure Date / Time Performed Performing Clinician Sourc e MAMMO, screening, digital, 2022-03-12 00:00:00 [facility] bilateral DEXA 2022-03-12 00:00:00 [facility] home sleep study 2022-02-20 00:00:00 [facility] Cholecystectomy [facility] (Gallbladder) Section [facility] Gastric Bypass for Obesity [facility] Plan of Care Planned Activity Planned Date Details Comments Source Diagnostic Test Pending 2022-03-12 CMP, serum or [facility] 00:00:00 plasma [code = CMP, serum or plasma] Diagnostic Test Pending 2022-03-12 CBC w/ auto diff [facility] 00:00:00 [code = CBC w/ auto diff] Diagnostic Test Pending 2022-03-12 unlisted lab [code [facility] 00:00:00 = unlisted lab] Diagnostic Test Pending 2022-03-12 TSH, serum, reflex [facility] 00:00:00 free T4 [code = TSH, serum, reflex free T4] Diagnostic Test Pending 2022-03-12 [facility]00 [code = lipid panel, serum] Instructions [facility] Start End Encounter Admission Attending Care Care Encounter Source Date/Time Date/Time Type Type Clinicians Facility Department ID 2022-04-26 2022-04-26 [facility] 00:00:00 00:00:00 [facility] - Medic chelle Benavides, [facility]_Pat PA: [address], [place] [address] , Ph. 2022-04-25 2022-04-25 Outpatient GC_BAHC_Sei PRIV PRIV [id number] [facility] 00:00:00 00:00:00 ter_S [id number] Medica l 2022-04-25 2022-04-25 Outpatient GC_BAHC_Sei PRIV PRIV [id number] [facility] 00:[facility]:00 00:00:00 ter_S [id number] Medica l 2022-03-12 2022-03-12 [facility] [id number] [facility] 00:00:00 00:00:00 [facility] - Medic chelle Benavides, GC_BAHC_Pat PA: [address], [place] [address] , Ph. 2022-03-09 2022-03-09 Outpatient GC_BAHC_Sei PRIV PRIV [id number] [facility] 00:00:00 00:00:00 ter_S [id number] Medica l 2022-02-202022-02-20 [facility] [id number] [facility]:00 00:00:00 [facility] al Seiter, GC_BAHC_Pat PA: [address], [place], [place] [id number] , Ph. 2022-02-13 2022-02-13 Outpatient GC_BAHC_Sei PRIV PRIV [id number] [facility] 00:00:00 00:00:00 ter_S [id number] Medica l 2022-02-09 2022-02-09 Outpatient GC_BA[facility]_Sei PRIV PRIV [id number] [facility] 00:00:00 00:00:00 ter_S [id number] Medica l 2022-01-24 2022-01-24 Outpatient GC_BA[facility]_Sei PRIV PRIV [id number] [facility] 00:00:00 00:00:00 ter_S [id number] Medica l 2022-01-23 2022-01-23 [facility]:00:00 00:00:00 [facility] - [facility] Seiter, GC_BAHC_Pat PA: [address], [address], [place] [address] , Ph. 2022-01-12 2022-01-12 Outpatient GC_BAHC_Sei PRIV PRIV [id number] [facility] 00:00:00 00:00:00 ter_S [id number] Medica l 2022-01-02 2022-01-02 [facility]:00 00:00:00 [facility] Seiter, GC_BAHC_Pat PA: [address], [address], [place] [address] , Ph. 2021-12-20 2021-12-20 Outpatient GC_BAHC_Sei PRIV PRIV [id number] [facility] 00:00:00 00:00:00 ter_S [id number] Medica l 2021-12-19 2021-12-19 Outpatient Seiter, PRIV PRIV [id number] 00:00:00 00:00:00 Anderson Maier [id number] 2021-12-19 2021-12-19 [facility] [id number] [facility] 00:00:00 00:00:00 [facility] - Medic [facility] Seiter, GC_BAHC_Pat PA: [address], [address], [place] [address] , Ph. 2021-12-01 2021-12-01 Outpatient GC_BAHC_Sei PRIV PRIV [id number] [facility] 00:00:00 00:00:00 ter_S [id number] Medica l 2021-11-30 2021-11-30 Outpatient GC_BAHC_Sei PRIV PRIV [id number] [facility] 00:00:00 00:00:00 ter_S [id number] Medica l 2021-11-30 2021-11-30 Outpatient Seiter, PRIV PRIV [id number] 00:00:00 00:00:00 Anderson Maier [id number] 2021-11-30 2021-11-30 [facility] [id number] [facility] 00:00:00 00:00:00 [facility] - Medic al Seiter, GC_BAHC_Pat PA: [address], [place] [address] , Ph. 2021-11-29 2021-11-29 Outpatient GC_BAHC_Sei PRIV PRIV [id number] [facility] 00:00:00 00:00:00 ter_S [id number] Medica l 2021-11-28 2021-11-28 Outpatient GC_BA[facility]_Sei PRIV PRIV [id number] [facility] 00:00:00 00:00:00 ter_S [id number] Medica l Results This patient has no known results.
[2022-05-27 06:17] LABS: Absolute Lymphocytes (CBC) 0.6 K/uL (0.7-4.9); Hematocrit 34.6 % (36.0-45.0); Lymphocytes % 11.9 % (15.3-44.8); MCV 98.1 fL (80-100); MPV 7.5 fL (7.6-11.3); RBC Red Blood Cell Count 3.53 M/uL (3.86-4.86)
[2022-05-27 06:38] LABS: Potassium 4.2 mmol/L (3.5-5.1); Troponin High Sensitivity 18.5 pg/mL (<58.9)
--- NOTE | 2022-05-27 07:09 | ER ---
Nurse's Notes [facility] Name: Fabiana Garcia Age: 67 yrs Sex: Female : 1955 Arrival Date: 05/27/2022 Time: 05:37 Bed 15 Private MD: Diagnosis: Heart failure, unspecified;Shortness of breath Presentation: 05/27 05:37 Chief complaint: EMS states: 67 year old female reports shortness of breath that has ha1 been going on for a week, today she feels that it is getting worse. 05:37 Method Of Arrival: EMS: [facility] ha1 05:37 Ebola Screen: No symptoms or risks identified at this time. Initial Sepsis Screen: Does ha1 the patient meet any 2 criteria? No. Patient's initial sepsis screen is negative. Does the patient have a suspected source of infection? No. Patient's initial sepsis screen is negative. Risk Assessment: Do you want to hurt yourself or someone else? Patient reports no desire to harm self or others. Onset of symptoms was May 27, 2022. 05:37 Acuity: GEORGES 3 ha1 Triage Assessment: 05:37 General: Appears uncomfortable, Behavior is cooperative, anxious. Pain: Complains of ha1 pain in back Pain does not radiate. Pain currently is 9 out of 10 on a pain scale. Quality of pain is described as throbbing, Pain began suddenly, Is continuous, Alleviated by medications, rest, repositioning. EENT: No signs and/or symptoms were reported regarding the EENT system. Neuro: Level of Consciousness is awake, alert, obeys commands, Oriented to person, place, time, situation. Cardiovascular: Capillary refill < 3 seconds Patient's skin is warm and dry. Respiratory: Airway is patent Respiratory effort is even, unlabored, Respiratory pattern is regular, symmetrical. Respiratory: Reports shortness of breath at rest Breath sounds are clear bilaterally. GI: : No signs and/or symptoms were reported regarding the genitourinary system. Derm: redness on the feet. bilateral. Musculoskeletal: Swelling present in right leg and left leg. 05:37 Cardiovascular: Heart tones S1 S2 present. ha1 Historical: - Allergies: 06:18 No Known Allergies; ha1 - PMHx: 06:18 Hypertensive disorder; ha1 - PSHx: 06:18 section; Gastric Bypass; ha1 - Immunization history:: Adult Immunizations unknown. - Social history:: Smoking status: unknown. Screenin:22 Abuse screen: Denies threats or abuse. Denies injuries from another. Nutritional ha1 screening: No deficits noted. Tuberculosis screening: No symptoms or risk factors identified. Assessment: 05:37 Reassessment: see triage assessment. ha1 06:23 Reassessment: Patient and/or family updated on plan of care and expected duration. Pain ha1 level reassessed. Patient is alert, oriented x 3, equal unlabored respirations, skin warm/dry/pink. Patient states feeling better. Patient states symptoms have improved. 07:22 Reassessment: Patient appears in no apparent distress at this time. Reassessment: pt vg1 stated has hx of back pain; requesting a pillow for some relief. General: Appears uncomfortable. Pain: Complains of pain in back. 08:20 Reassessment: Patient appears in no apparent distress at this time. No changes from vg1 previously documented assessment. Patient and/or family updated on plan of care and expected duration. Pain level reassessed. Patient is alert, oriented x 3, equal unlabored respirations, skin warm/dry/pink. 09:25 Reassessment: Patient appears in no apparent distress at this time. No changes from vg1 previously documented assessment. Patient and/or family updated on plan of care and expected duration. Pain level reassessed. Patient is alert, oriented x 3, equal unlabored respirations, skin warm/dry/pink. Transferred to CT via stretcher. 09:41 Reassessment: pt transported back from CT via stretcher. vg1 10:16 Reassessment: attempted to call report. vg1 Vital Signs: 05:37 BP 147 / 77; Pulse 89; Resp 24; Pulse Ox 97% on 2 lpm NC; ha1 06:13 BP 148 / 77; Pulse 89; Resp 24 S; Pulse Ox 97% on 2 lpm NC; Weight 176.9 kg; Height 5 ha1 ft. 5 in. (165.10 cm); Pain 9/10; 06:23 BP 124 / 75; Pulse 88; Resp 20 S; Temp 96.9; Pulse Ox 100% on 2 lpm NC; ha1 07:15 BP 130 / 83; Pulse 78; Resp 14; Pulse Ox 100% on R/A; vg1 08:00 BP 118 / 73; Pulse 82; Resp 15; Temp 97.6(TE); Pulse Ox 100% on R/A; vg1 06:13 Body Mass Index 64.90 (176.90 kg, 165.10 cm) ha1 ED Course: 05:37 Patient arrived in ED. mw2 05:37 Arm band placed on right wrist. ha1 05:37 Patient has correct armband on for positive identification. Bed in low position. Call ha1 light in reach. Side rails up X2. Adult w/ patient. 05:40 Garcia Holbrook DO is Attending Physician. ms3 05:56 Danielle Carbajal, RN is Primary Nurse. ha1 05:58 Inserted saline lock: 20 gauge in right antecubital area, using aseptic technique. ha1 Blood collected. 06:12 Basic Metabolic Panel Sent. ha1 06:12 CBC with Diff Sent. ha1 06:12 NT PRO-BNP Sent. ha1 06:12 Troponin HS Sent. ha1 06:18 Triage completed. ha1 07:08 Al Jacob MD is Hospitalizing Provider. ms3 10:27 No provider procedures requiring assistance completed. Patient admitted, IV remains in vg1 place. Administered Medications: No medications were administered Medication: 10:27 VIS not applicable for this client. vg1 Outcome: 07:09 Decision to Hospitalize by Provider. ms3 10:26 Admitted to Tele accompanied by tech, via stretcher, room 207, with oxygen, with chart, 1 Report called to [facility] SNOW 10:26 Condition: good 10:26 Instructed on the need for admit. 10:49 Patient left the ED. vg1 Signatures: Sarthak Gorman mw2 Hallie Underwood, RN RN vg1 Garcia Holbrook DO DO ms3 Danielle Carbajal, RN RN ha1 Corrections: (The following items were deleted from the chart) 09:27 09:25 Reassessment: Transferred to CT via stretcher 1 vg1
--- NOTE | 2022-05-27 07:09 | EDPHYS ---
Physician Documentation [facility] Name: Fabiana Garcia Age: 67 yrs Sex: Female : 1955 Arrival Date: 05/27/2022 Time: 05:37 Bed 15 Private MD: ED Physician Garcia Holbrook HPI: 05/27 06:07 This 67 yrs old Female presents to ER via Unassigned with complaints of Shortness of ms3 breath. 06:07 67-year-old female with past medical history of hypertension presents via [facility] for ms3 shortness of breath that has been ongoing for 3 weeks. Patient denies pain. Patient denies fevers, chills, nausea, vomiting. Patient states her shortness of breath is worse with exertion. Patient states she is only able to walk approximately 5 feet. Patient denies alleviating factors.. Historical: - Allergies: 06:18 No Known Allergies; ha1 - PMHx: 06:18 Hypertensive disorder; ha1 - PSHx: 06:18 section; Gastric Bypass; ha1 - Immunization history:: Adult Immunizations unknown. - Social history:: Smoking status: unknown. ROS: 06:07 Constitutional: Negative for fever, and chills. Neck: Negative for injury, pain, and ms3 swelling, Cardiovascular: Negative for chest pain, and palpitations. 06:07 Skin: Negative for injury, rash, and discoloration. 06:07 Respiratory: Positive for shortness of breath. 06:07 All other systems are negative. Exam: 06:07 Constitutional: This is a well developed, well nourished patient who is awake, alert, ms3 and in no acute distress. Head/Face: Normocephalic, atraumatic. Chest/axilla: Normal chest wall appearance and motion. Nontender with no deformity. Cardiovascular: Regular rate and rhythm with a normal S1 and S2. No gallops, murmurs, or rubs. Normal PMI, no JVD. No pulse deficits. Respiratory: Lungs have equal breath sounds bilaterally, clear to auscultation and percussion. No rales, rhonchi or wheezes noted. No increased work of breathing, no retractions or nasal flaring. Abdomen/GI: Soft, non-tender, with normal bowel sounds. No distension or tympany. No guarding or rebound. No evidence of tenderness throughout. Skin: Warm, dry with normal turgor. Normal color with no rashes, no lesions, and no evidence of cellulitis. 06:07 Musculoskeletal/extremity: Extremities: Bilateral pedal edema. 06:50 ECG was reviewed by the Attending Physician. ms3 Vital Signs: 05:37 BP 147 / 77; Pulse 89; Resp 24; Pulse Ox 97% on 2 lpm NC; ha1 06:13 BP 148 / 77; Pulse 89; Resp 24 S; Pulse Ox 97% on 2 lpm NC; Weight 176.9 kg; Height 5 ha1 ft. 5 in. (165.10 cm); Pain 9/10; 06:23 BP 124 / 75; Pulse 88; Resp 20 S; Temp 96.9; Pulse Ox 100% on 2 lpm NC; ha1 07:15 BP 130 / 83; Pulse 78; Resp 14; Pulse Ox 100% on R/A; vg1 08:00 BP 118 / 73; Pulse 82; Resp 15; Temp 97.6(TE); Pulse Ox 100% on R/A; vg1 06:13 Body Mass Index 64.90 (176.90 kg, 165.10 cm) ha1 MDM: 06:02 Patient medically screened. ms3 07:28 Differential diagnosis: Anemia CHF exacerbation, Chronic Obstructive Pulmonary Disease ms3 Myocardial Infarction pneumonia. Data reviewed: vital signs, nurses notes, lab test result(s), EKG, radiologic studies, and as a result, I will admit patient. Consideration of Admission/Observation Patient was admitted/placed on observation. Management of patient was discussed with the following: Hospitalist: Dr Jacob. Independent interpretation of the following test(s) in the Emergency Department EKG: See my EKG interpretation above nuclear monitoring technician: rate is 86 beats/min, Rhythm is normal sinus rhythm, regular, with no ectopy, Interpretation: normal rate, normal rhythm. Counseling: I had a detailed discussion with the patient and/or guardian regarding: the historical points, exam findings, and any diagnostic results supporting the discharge/admit diagnosis, lab results, radiology results, the need for further work-up and treatment in the hospital. ED course: Discussed necessity of admission with patient and her . All questions answered. Patient remains in stable condition.. 05/27 06:03 Order name: Basic Metabolic Panel ms3 05/27 06:03 Order name: CBC with Diff ms3 05/27 06:03 Order name: NT PRO-BNP ms3 05/27 06:03 Order name: Troponin HS ms3 05/27 06:17 Order name: CBC with Automated Diff; Complete Time: 06:33 EDMS 05/27 06:38 Order name: Basic Metabolic Panel; Complete Time: 07:02 EDMS 05/27 06:38 Order name: Troponin High Sensitivity; Complete Time: 07:02 EDMS 05/27 06:38 Order name: NT PRO-BNP; Complete Time: 07:02 EDMS 05/27 07:09 Order name: SARS RAPID ms3 05/27 08:38 Order name: SARS-COV-2 Antigen Rapid EDMS 05/27 09:45 Order name: Hemoglobin A1c EDMS 05/27 09:48 Order name: Phosphorus EDMS 05/27 09:48 Order name: Lipid Profile EDMS 05/27 09:48 Order name: T4 Free EDMS 05/27 06:03 Order name: XRAY Chest (1 view) ms3 05/27 06:03 Order name: EKG; Complete Time: 06:04 ms3 05/27 06:03 Order name: Cardiac monitoring; Complete Time: 06:13 ms3 05/27 06:03 Order name: EKG - Nurse/Tech; Complete Time: 06:59 ms3 05/27 06:03 Order name: IV Saline Lock; Complete Time: 06:13 ms3 05/27 06:03 Order name: Labs collected and sent; Complete Time: 06:13 ms3 05/27 06:03 Order name: O2 Per Protocol; Complete Time: 06:13 ms3 05/27 06:03 Order name: O2 Sat Monitoring; Complete Time: 06:13 ms3 05/27 09:48 Order name: Magnesium EDMS 05/27 09:48 Order name: Thyroid Stimulating Hormone EDMS 05/27 09:59 Order name: CT EDMS EC:50 Rate is 76 beats/min. Rhythm is regular. QRS [place] is Normal. [place] interval is normal. QRS ms3 interval is normal. Clinical impression: Normal ECG. Interpreted by me. Reviewed by me. Administered Medications: No medications were administered Disposition Summary: 05/27/22 07:09 Hospitalization Ordered Hospitalization Status: Inpatient Admission ms3 Provider: Al Jacob ms3 Location: Telemetry/MedSurg (Inpatient) ms3 Condition: Stable ms3 Problem: new ms3 Symptoms: are unchanged ms3 Bed/Room Type: Standard ms3 Room Assignment: 207(05/27/22 09:53) dw Diagnosis - Heart failure, unspecified ms3 - Shortness of breath ms3 Forms: - Medication Reconciliation Form ms3 - SBAR form ms3 Signatures: Dispatcher [employer] Paloma Hinojosa RN RN dw Calvin Greenwood MD MD rn Sims, Marcus, DO DO ms3 Danielle Carbajal RN RN ha1 Corrections: (The following items were deleted from the chart) 09:53 07:09 ms3 dw
[2022-05-27 08:37] LABS: SARS-CoV-2 Antigen Rapid Res Negative (Negative)
[2022-05-27] MEDS ORDERED: ACETAMINOPHEN 325 MG TABLET PO PRN (09:09)
[2022-05-27] MEDS ORDERED: ONDANSETRON 4 MG/2 ML VIAL IV PRN (09:12)
--- NOTE | 2022-05-27 09:16 | P.HP ---
Certification for Inpatient Patient admitted to: Inpatient With expected LOS: >2 Midnights Patient will require the following post-hospital care: None Practitioner: I am a practitioner with admitting privileges, knowledge of patient current condition, hospital course, and medical plan of care. Services: Services provided to patient in accordance with Admission requirements found in Title 42 Section 412.3 of the Code of Federal Regulations <Mary Jo Herrera Coy - Last Filed: 05/27/22 22:48> Patient History Date of Service: 05/27/22 Reason for admission: SOB and generalized edema History of Present Illness: Patient is a 67-year-old female with a past medical history significant for hypertension, morbid obesity, SAÚL, chronic back pain who presents with complaint of shortness of breath that has been ongoing for the past 3 weeks. Patient reported associated signs and symptoms of generalized edema, dizziness, chills, cough and chest tightness. Patient reported that she has been having chronic back pain with radicular pain down her left side. Patient reported that edema is worse in the abdomen and bilateral lower extremities. Patient denies any other signs or symptoms. Symptoms are aggravated or relieved by nothing. Patient decided to present to the hospital due to worsening symptoms. - Past Medical/Surgical History Diabetic: No -: insomnia -: GERD -: arthritis -: Gastric Bipass 2010 -: Cholecystecomy 2010 -: x2 -: left breast tumor removal - Family History Father -: Heart disease, Hypertension, Diabetes Mother -: Heart disease, Hypertension, Diabetes - Social History Smoking Status: Never smoker Alcohol use: Yes CD- Drugs: No Caffeine use: Yes Place of Residence: Home <Mary Jo Herrera - Last Filed: 05/27/22 22:48> Date of Service: 05/28/22 <Al Jacob - Last Filed: 05/28/22 13:04> Allergies No Known Allergies Allergy (Verified 11/24/21 20:13) Home Medications: Ferrocite 0.5 tab PO SEECOM 01/26/19 Hydrocodone 5/APAP 325 [Blanchard 5/325] 1 tab PO Q6H PRN #20 tab 11/25/21 RX: Amlodipine [Norvasc*] 5 mg PO DAILY #30 tab 11/25/21 RX: Losartan/Hydrochlorothiazide [Losartan-Hctz 50-12.5 mg Tab] 1 tab PO DAILY #30 tab 11/25/21 RX: Pantoprazole [Protonix Tab*] 40 mg PO SEECOM #30 tab 11/25/21 RX: Trazodone [Desyrel*] 100 mg PO BEDTIME #30 tab 11/25/21 RX: Valacyclovir [Valtrex*] 1,000 mg PO DAILY #7 tab 11/25/21 Review of Systems General: Chills Eyes: Unremarkable ENT: Unremarkable Respiratory: Cough, Shortness of Breath, Other (chest tightness ) Cardiovascular: Unremarkable Gastrointestinal: Other (Abdominal swelling ) Genitourinary: Unremarkable Musculoskeletal: Pedal edema, Other (Generalized edema) Integumentary: Unremarkable Neurological: Other (Dizziness) Lymphatics: Unremarkable <Mary Jo Herrera - Last Filed: 05/27/22 22:48> Physical Examination - Physical Exam General: Alert, In no apparent distress, Oriented x3, Cooperative HEENT: Atraumatic, PERRLA, Mucous membr. moist/pink, EOMI, Sclerae nonicteric Neck: Supple, 2+ carotid pulse no bruit, No LAD, Without JVD or thyroid abnormality Respiratory: Clear to auscultation bilaterally, Normal air movement Cardiovascular: Regular rate/rhythm, Normal S1 S2, No murmurs, Edema Capillary refill: <2 Seconds Gastrointestinal: Normal bowel sounds, No tenderness, Distended Musculoskeletal: No tenderness, Swelling Integumentary: No rashes, No breakdown, No significant lesion, Erythema Neurological: Normal speech, Normal tone, Normal affect Lymphatics: No axilla or inguinal lymphadenopathy - Studies Laboratory Data (last 24 hrs) 05/27/22 06:08: WBC 5.30, Hgb 11.2 L, Hct 34.6 L, Plt Count 203 05/27/22 06:08: Sodium 139, Potassium 4.2, BUN 26 H, Creatinine 1.29 H, Glucose 128 H <Mary Jo Herrera - Last Filed: 05/27/22 22:48> Assessment and Plan - Plan --Suspected acute systolic or diastolic CHF. Echocardiogram pending to assess cardiac structures and functions. Daily weight and strict I/O. Cardiology consulted. Continue diuresis with Lasix. We will await further recommendation from kilnman. -- Insomnia. Continue home medication. --Hypertension. Poorly controlled.. Continue home medications and hydralazine prn --Osteoarthritis\Chronic back pain. We will manage pain with current pain medication regimen. --GERD. Continue Protonix. --Super obesity. BMI greater than 50. Patient counseled on weight reduction, diet and exercise therapy. --SAÚL. Patient placed on CPAP every bedtime. -- Anemia of chronic disease. H&H stable. We will continue to monitor hemoglobin and transfuse if less than 7.0. --DVT prophylaxis with Lovenox subQ. Discharge Plan: Home Plan to discharge in: Greater than 2 days - Advance Directives Does patient have a Living Will: No Does patient have a Durable POA for Healthcare: No - Code Status/Comfort Care Code Status Assessed: Yes Physician Review: Patient Assessed, Agree with Above Assessment and Plan Critical Care: No <Mary Jo Herrera - Last Filed: 05/27/22 22:48> Physician Review: Patient Assessed, Agree with Above Assessment and Plan <Al Jacob - Last Filed: 05/28/22 13:04>
[2022-05-27 09:47] LABS: Magnesium 2.7 mg/dL (1.6-2.4); Phosphorus 3.2 mg/dL (2.5-4.9); Thyroid Stimulating Hormone 2.57 uIU/mL (0.358-3.740)
--- NOTE | 2022-05-27 09:58 | RAD REPORT ---
EXAM DESCRIPTION: CT - Thorax Wo Con CLINICAL HISTORY: Chest pain SOB, COugh COMPARISON: Chest For Pe Angio dated 11/25/2021; Chest Single View dated 05/27/2022 FINDINGS: The lungs are clear. No pleural thickening or pleural effusion. No pneumothorax. No axillary, mediastinal or hilar adenopathy. No concerning bony finding. Small hiatal hernia with postsurgical changes about the stomach. Cholecys tectomy clips. All CT scans are performed using dose optimization technique as appropriate and may include automated exposure control or mA/KV adjustment according to patient size. IMPRESSION: No acute infiltrate detected.
[2022-05-27] MEDS: ASPIRIN 81 MG CHEWABLE TABLET PO SCH (12:42)
[2022-05-27 13:13] VITALS: BMI 64.9
[2022-05-27] MEDS: HYDROCODONE/APAP 10/325 TAB PO PRN ×2 (13:19→20:11)
[2022-05-27] MEDS: ALBUTEROL 2.5 MG/3 ML NEB SOL NEB SCH ×2 (14:00→19:13)
[2022-05-27] MEDS: IPRATROPIUM BROM 0.5MG/2.5ML NEB SCH ×2 (14:00→19:13)
[2022-05-27] MEDS: FUROSEMIDE 40 MG/4 ML VIAL IV SCH (18:07)
[2022-05-27] MEDS: TRAZODONE 50 MG TABLET PO SCH (21:56)
[2022-05-27] MEDS ORDERED: HYDRALAZINE HCL 20 MG/ML VIAL IV PRN (22:55)
[2022-05-28] MEDS: IPRATROPIUM BROM 0.5MG/2.5ML NEB SCH ×3 (00:20→14:00)
[2022-05-28] MEDS: ALBUTEROL 2.5 MG/3 ML NEB SOL NEB SCH ×3 (00:20→14:00)
[2022-05-28 03:44] LABS: Absolute Lymphocytes (CBC) 0.9 K/uL (0.7-4.9); Hematocrit 33.6 % (36.0-45.0); Lymphocytes % 19.1 % (15.3-44.8); MCV 98.5 fL (80-100); MPV 7.8 fL (7.6-11.3); RBC Red Blood Cell Count 3.41 M/uL (3.86-4.86)
[2022-05-28 04:16] LABS: Potassium 4.5 mmol/L (3.5-5.1)
[2022-05-28] MEDS: HYDROCODONE/APAP 10/325 TAB PO PRN ×3 (06:01→20:28)
[2022-05-28] MEDS: FUROSEMIDE 40 MG/4 ML VIAL IV SCH ×2 (08:52→17:31)
[2022-05-28] MEDS: VALACYCLOVIR 500 MG TAB PO SCH (08:53)
[2022-05-28] MEDS: ENOXAPARIN 40 MG/0.4 ML SQ SCH (08:53)
[2022-05-28] MEDS: ASPIRIN 81 MG CHEWABLE TABLET PO SCH (08:53)
[2022-05-28] MEDS: PANTOPRAZOLE 40MG TABLET PO SCH (08:53)
[2022-05-28] MEDS ORDERED: AMLODIPINE 5 MG TAB PO SCH (09:00)
--- NOTE | 2022-05-28 11:49 | RAD REPORT ---
EXAM DESCRIPTION: ADDENDUM #1 ADDENDUM: Chest 1 View AP 11/24/2021 image is now made available. No additional findings. Electronically signed by: Marco Osman MD 05/27/2022 7:06 AM BUSINESS DEVELOPMENT ASSISTANT End of Addendum EXAM DESCRIPTION: XR Chest 1 View AP CLINICAL HISTORY: Dyspnea COMPARISON: Chest 1 View AP 11/24/2021 report without images TECHNIQUE: Chest 1 View AP FINDINGS: Evaluation more difficult due to patient body habitus. Moderate decreased inspiration (decreased lung volumes) makes evaluation more difficult and may accen tuate heart size and pulmonary vascularity. Trachea midline. No consolidation, mass, or significant pulmonary edema. No significant pleural effusion or pneumothorax. Moderate symmetric bilateral lower lungs/chest density most likely represents overlying breast/chest wall attenuation artifact. Bones unremarkable. IMPRESSION: Grossly Unremarkable chest radiograph. Electronically signed by: Marco Osman MD 05/27/2022 6:47 AM BUSINESS DEVELOPMENT ASSISTANT Due to temporary technical issues with the PACS/Fluency reporting system, reports are being signed by the in house radiologists without review as a courtesy to insure prompt reporting. The interpreting radiologist is fully responsible for the content of the report.
--- NOTE | 2022-05-28 13:03 | P.PN ---
Subjective Date of Service: 05/28/22 Chief Complaint: SOB and generalized edema No acute events overnight. She reports that her breathing has improved compared to yesterday. However, she is still experiencing orthopnea and lower extremity edema. Review of Systems 10-point ROS is otherwise unremarkable Respiratory: Shortness of Breath Cardiovascular: Orthopnea, Edema Physical Examination - Vital Signs Temperature: 97.5 F Blood Pressure: 114/53 Pulse: 86 Respirations: 20 Pulse Ox (%): 96 - Physical Exam General: Alert, In no apparent distress, Oriented x3 HEENT: Atraumatic, EOMI, Sclerae nonicteric Neck: JVD distended Respiratory: Diminished, Crackles/rales (bibasilar) Cardiovascular: Regular rate/rhythm, Normal S1 S2, No gallops, No rubs, No murmurs, Edema (2-3+ BLE) Gastrointestinal: Normal bowel sounds, Soft and benign, Non-distended, No tenderness, No rebound, No guarding Musculoskeletal: No clubbing Integumentary: No rashes Neurological: Normal speech, Normal affect Assessment And Plan - Plan # Suspected Acute Decompensated Congestive Heart Failure with Unknown Ejection Fraction # Hypertension - Consult Cardiology - recommendations appreciated - NT-Pro BNP = 2016 - Ordered transthoracic echocardiogram - Diuresis with IV furosemide - Discontinued home amlodipine due to soft blood pressures and lower extremity edema - Daily weights - Strict I/O - Cardiac diet, 1.5 L fluid restriction, 2 g Na restriction # KDIGO Stage I Acute Kidney Injury - suspect Cardiorenal Syndrome - Creatinine = 1.29 -> 1.27 (baseline creatinine ~0.8-0.9) - Urinalysis = pending - IV diuretics as mentioned above - Monitor creatinine and urine output - If worsening, obtain renal ultrasound - Renally dose medications # Obstructive Sleep Apnea - May use home CPAP # Morbid Obesity - BMI 64.9 kg/m2 - Lifestyle modifications Al Jacob M.D.
[2022-05-28 15:03] LABS: Specific Gravity 1.008 (1.005-1.030); Urine Bacteria <20 /HPF (<20); Urine Bilirubin NEGATIVE (Negative); Urine Blood Trace (Negative); Urine Clarity Clear (Clear); Urine Color Colorless (Yellow); Urine Glucose NEGATIVE (Negative); Urine Mucus Slight /HPF (None Seen); Urine Protein NEGATIVE (Negative); Urine RBC <5 /HPF (None Seen); Urine Urobilinogen Normal (Normal)
--- NOTE | 2022-05-28 17:16 | EKG ---
Test Date: 2022-05-27 Test Time: 06:47:01 Lumber Driver: MEME MEASUREMENT RESULTS: Intervals: Rate: 76 UT: 172 QRSD: 68 QT: 398 QTc: 447 [place]: P: 58 UT: 172 QRS: 45 T: 24 INTERPRETIVE STATEMENTS: Normal sinus rhythm Low voltage QRS Borderline ECG Compared to ECG 11/24/2021 16:04:51 Low QRS voltage now present Electronically Signed On 05-28-22 17:10:53 RECRUITING TEAM LEAD by Chester Valenzuela
[2022-05-28] MEDS: TRAZODONE 50 MG TABLET PO SCH (22:17)
[2022-05-29 04:21] LABS: Magnesium 2.7 mg/dL (1.6-2.4); Potassium 3.9 mmol/L (3.5-5.1)
--- NOTE | 2022-05-29 06:57 | ECHO ---
HEIGHT: 5 ft 5 in WEIGHT: 390 lb 0 oz DATE OF STUDY: 05/27/[address]: Mary Jo Herrera 2-DIMENSIONAL: YES M.MODE: YES DOPPLER: YES COLOR FLOW: YES TDS: YES PORTABLE: DEFINITY: BUBBLE STUDY: DIAGNOSIS: RULE OUT CONGESTIVE HEART FAILURE CARDIAC HISTORY: CATHERIZATION: NO SURGERY: NO PROSTHETIC VALVE: NO PACEMAKER: NO MEASUREMENTS (cm) DIASTOLIC (NORMALS) SYSTOLIC (NORMALS) IVSd 1.2 (0.6-1.2) LA Diam 2.5 (1.9-4.0) LVEF 66% LVIDd 4.0 (3.5-5.7) LVIDs 2.6 (2.0-3.5) %FS 36% LVPWd 1.2 (0.6-1.2) Ao Diam 2.7 (2.0-3.7) 2 DIMENSIONAL ASSESSMENT: RIGHT ATRIUM: NOT WELL SEEN LEFT ATRIUM: NORMAL RIGHT VENTRICLE: NOT WELL SEEN LEFT VENTRICLE: NORMAL TRICUSPID VALVE: MILD TRICUSPID REGURGITATION MITRAL VALVE: NORMAL PULMONIC VALVE: NOT WELL SEEN AORTIC VALVE: NORMAL PERICARDIAL EFFUSION: NONE AORTIC ROOT: NORMAL LEFT VENTRICULAR WALL MOTION: NORMAL DOPPLER/COLOR FLOW: SEE BELOW COMMENTS: 1. POOR WINDOWS 2. LEFT VENTRICULAR EJECTION FRACTION OVERALL APPEARS NORMAL 3. PULMONARY HYPERTENSION WITH RIGHT VENTRICULAR SYSTOLIC PRESSURE OF 50 mmHg PLUS RIGHT ATRIAL PRESSURE TECHNOLOGIST: OSBALDO CATALAN
[2022-05-29] MEDS: ASPIRIN 81 MG CHEWABLE TABLET PO SCH (08:30)
[2022-05-29] MEDS: HYDROCODONE/APAP 10/325 TAB PO PRN ×3 (08:30→22:54)
[2022-05-29] MEDS: ENOXAPARIN 40 MG/0.4 ML SQ SCH (08:31)
[2022-05-29] MEDS: VALACYCLOVIR 500 MG TAB PO SCH (08:31)
[2022-05-29] MEDS: FUROSEMIDE 40 MG/4 ML VIAL IV SCH ×2 (08:32→15:53)
[2022-05-29] MEDS ORDERED: POTASSIUM CL SA 10 MEQ TAB PO ONE (09:00)
--- NOTE | 2022-05-29 10:31 | P.PN ---
Subjective Date of Service: 05/29/22 Chief Complaint: SOB and generalized edema No acute events overnight. She reports that her breathing is unchanged compared to yesterday. She has been weaned off of oxygen, but is experiencing significant shortness of breath with exertion. She also reports persistent orthopnea and lower extremity edema. She denies chest pain or palpitations. Review of Systems 10-point ROS is otherwise unremarkable Respiratory: Shortness of Breath Cardiovascular: Orthopnea, Edema Physical Examination - Vital Signs Temperature: 98.1 F Blood Pressure: 133/65 Pulse: 83 Respirations: 18 Pulse Ox (%): 96 Assessment And Plan - Plan - Physical Exam General: Alert, In no apparent distress, Oriented x3 HEENT: Atraumatic, Sclerae nonicteric Neck: JVD distended Respiratory: Diminished, Crackles/rales (faint, bibasilar) Cardiovascular: Regular rate/rhythm, Normal S1 S2, No gallops, No rubs, No murmurs, Edema (2-3+ BLE) Gastrointestinal: Soft, Non-distended, No tenderness Musculoskeletal: No clubbing Integumentary: No rashes Neurological: Normal speech, Normal affect # Acute Decompensated Diastolic Congestive Heart Failure with Preserved Ejection Fraction # Pulmonary Hypertension # Hypertension - Consult Cardiology and spoke with Dr. Valenzuela - recommendations appreciated - He feels that she would benefit from several additional days of IV diuretics - NT-Pro BNP = 2016 - Transthoracic echocardiogram = "1. poor windows 2. left ventricular ejection fraction overall appears normal 3. pulmonary hypertension with right ventricular systolic pressure of 50 mmHg plus right atrial pressure" - Diuresis with IV furosemide - Discontinued home amlodipine due to soft blood pressures and lower extremity edema - Daily weights - Strict I/O - Cardiac diet, 1.5 L fluid restriction, 2 g Na restriction # KDIGO Stage I Acute Kidney Injury - suspect Cardiorenal Syndrome - Creatinine = 1.29 -> 1.27 -> 1.25 (baseline creatinine ~0.8-0.9) - Urinalysis = unremarkable - IV diuretics as mentioned above - Monitor creatinine and urine output - If worsening, obtain renal ultrasound - Renally dose medications # Obstructive Sleep Apnea - May use home CPAP # Morbid Obesity - BMI 64.9 kg/m2 - Lifestyle modifications Al Jacob M.D.
[2022-05-29] MEDS: TRAZODONE 50 MG TABLET PO SCH (22:41)
[2022-05-30 03:53] LABS: Magnesium 2.2 mg/dL (1.6-2.4); Potassium 3.6 mmol/L (3.5-5.1)
[2022-05-30] MEDS: HYDROCODONE/APAP 10/325 TAB PO PRN ×3 (06:43→19:37)
[2022-05-30] MEDS: FUROSEMIDE 40 MG/4 ML VIAL IV SCH ×2 (09:31→17:11)
[2022-05-30] MEDS: ENOXAPARIN 40 MG/0.4 ML SQ SCH (09:31)
[2022-05-30] MEDS: PANTOPRAZOLE 40MG TABLET PO SCH (09:32)
[2022-05-30] MEDS: ASPIRIN 81 MG CHEWABLE TABLET PO SCH (09:32)
[2022-05-30] MEDS: VALACYCLOVIR 500 MG TAB PO SCH (09:32)
--- NOTE | 2022-05-30 16:07 | P.PN ---
Subjective Date of Service: 05/30/22 Chief Complaint: SOB and generalized edema No acute events overnight. She reports that her breathing is gradually improving, but she has been experiencing generalized weakness. She also reports unchanged orthopnea and lower extremity edema. She denies chest pain or palpitations. Review of Systems 10-point ROS is otherwise unremarkable Respiratory: Cough, Shortness of Breath Cardiovascular: Orthopnea, Edema Physical Examination - Vital Signs Temperature: 97.1 F Blood Pressure: 127/60 Pulse: 88 Respirations: 18 Pulse Ox (%): 98 Assessment And Plan - Plan - Physical Exam General: Alert, In no apparent distress, Oriented x3 HEENT: Atraumatic, Sclerae nonicteric Neck: JVD distended Respiratory: Diminished, Crackles/rales (faint, bibasilar) Cardiovascular: Regular rate/rhythm, No murmurs, Edema (1-2+ BLE) Gastrointestinal: Soft, Non-distended, No tenderness Musculoskeletal: No clubbing Integumentary: No rashes Neurological: Normal speech, Normal affect # Acute Decompensated Diastolic Congestive Heart Failure with Preserved Ejection Fraction # Pulmonary Hypertension # Hypertension - Consult Cardiology and spoke with Dr. Valenzuela - recommendations appreciated - He feels that she would benefit from several additional days of IV diuretics - NT-Pro BNP = 2016 - Transthoracic echocardiogram = "1. poor windows 2. left ventricular ejection fraction overall appears normal 3. pulmonary hypertension with right ventricular systolic pressure of 50 mmHg plus right atrial pressure" - Diuresis with IV furosemide - Discontinued home amlodipine due to soft blood pressures and lower extremity edema - Consulted PT - they recommended consideration for inpatient rehab vs SNF - CM assistance appreciated - Daily weights - Strict I/O - Cardiac diet, 1.5 L fluid restriction, 2 g Na restriction # KDIGO Stage I Acute Kidney Injury - suspect Cardiorenal Syndrome - Creatinine = 1.29 -> 1.27 -> 1.25 -> 1.14 (baseline creatinine ~0.8-0.9) - Urinalysis = unremarkable - IV diuretics as mentioned above - Monitor creatinine and urine output - If worsening, obtain renal ultrasound - Renally dose medications # Obstructive Sleep Apnea - May use home CPAP # Morbid Obesity - BMI 64.9 kg/m2 - Lifestyle modifications Al Jacob M.D.
[2022-05-30] MEDS: TRAZODONE 50 MG TABLET PO SCH (22:01)
--- NOTE | 2022-05-30 22:01 | PN ---
Date of Progress Note: 05/30/2022 Subjective: Seen by bedside. She is clinically doing well. No significant shortness of breath. He r lower extremity edema is resolved. Review of Systems: No chest pain, shortness of breath, orthopnea, or cough. No nausea, vomiting, or diarrhea. All othe r systems reviewed, they were negative. Physical Examination: Vital Signs: Reviewed. Head and Neck: Pupils are equal, reactive to light. Intact eye movements. No JVD. No cervical lym phadenopathy. Neck is supple. Thyroid is not enlarged. Lungs: Clear to auscultation bilaterally. No rhonchi, wheezing, or crackles. No accessory muscle u se. Heart: Regular rate and rhythm. No extra sounds. Abdomen: Soft, nontender. Bowel sounds positive. No organomegaly. No masses or hernia. No rigidi ty or rebound. Extremities: No clubbing, cyanosis. No edema. Skin: No rashes. Neurologic: Alert, awake, oriented x3. No acute focal deficits appreciated. Investigations: BUN 25, creatinine 1.1. Assessment/recommendation: 1.Acute on chronic diastolic heart failure exacerbation. She is euvolemic at the present time. Swi tched to oral Lasix 40 mg by mouth twice a day and patient can be released within next 24 hours if sh e continues to be doing well. 2.Hypertension. Blood pressure is controlled. 3.Morbid obesity. Had a long discussion about that issue, to follow low-calorie diet. 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 SR/MODL Voice ID: [id number] Report ID: [id number]
[2022-05-31 06:31] LABS: Potassium 3.5 mmol/L (3.5-5.1)
[2022-05-31] MEDS: HYDROCODONE/APAP 10/325 TAB PO PRN ×2 (06:38→14:47)
[2022-05-31] MEDS ORDERED: POTASSIUM CL SA 10 MEQ TAB PO ONE (09:00)
[2022-05-31] MEDS: ENOXAPARIN 40 MG/0.4 ML SQ SCH (09:04)
[2022-05-31] MEDS: FUROSEMIDE 40 MG/4 ML VIAL IV SCH (09:05)
[2022-05-31] MEDS: ASPIRIN 81 MG CHEWABLE TABLET PO SCH (09:06)
[2022-05-31] MEDS: VALACYCLOVIR 500 MG TAB PO SCH (09:06)
[2022-05-31 09:55] VITALS: O2SAT 92
--- NOTE | 2022-05-31 15:50 | P.DS ---
Admission Date: 05/27/22 Discharge Date: 05/31/22 Disposition: TRANSFER TO [facility] Discharge Condition: GOOD Reason for Admission: SOB and generalized edema Consultations: 1. Cardiology Hospital Course: DIAGNOSES: # Acute Decompensated Diastolic Congestive Heart Failure with Preserved Ejection Fraction # Pulmonary Hypertension # Hypertension # KDIGO Stage I Acute Kidney Injury - suspect Cardiorenal Syndrome # Obstructive Sleep Apnea # Morbid Obesity - BMI 64.9 kg/m2 HOSPITAL COURSE: Ms. Fabiana Garcia is a pleasant 67 year old female with a past medical history significant for hypertension, obstructive sleep apnea, and morbid obesity s/p bariatric surgery who was admitted to the [facility] on 05/27/2022 for shortness of breath and edema. She was admitted to the Medicine service. Upon further evaluation, her NT Pro- BNP was 2016. Her transthoracic echocardiogram revealed, "1. poor windows 2. left ventricular ejection fraction overall appears normal 3. pulmonary hypertension with right ventricular systolic pressure of 50 mmHg plus right atrial pressure." Cardiology was consulted and she was evaluated by Dr. James. She was treated with IV diuretics, and over the course of her hospitalization, her symptoms improved significantly. Despite adequate diuresis, she displayed significant deconditioning. Physical Therapy was consulted and it was recommended that she have continued therapy as an outpatient. With the assistance of case management, she was accepted to [facility]. Dr. Valenzuela has cleared her for discharge from a cardiac perspective with outpatient follow- up. On 05/31/2022, she was seen on rounds and deemed medically stable for discharge. She was provided a prescription for furosemide. She and her were given the opportunity to ask questions and reported no further questions. Furthermore, all questions were answered to the best of my ability. A copy of this discharge summary will be sent to the above providers to facilitate continuity of care. Today, I personally spent 25 minutes on her case, of which greater than 50% of the time was spent in patient education, counseling, and coordination of care as described above. - Physical Exam General: Alert, In no apparent distress, Oriented x3 HEENT: Atraumatic, Sclerae nonicteric Neck: JVD distended Respiratory: Diminished, but clear to ausculation bilaterally without wheezes, rhonchi, or rales Cardiovascular: Regular rate/rhythm, No murmurs, Edema (trace-1+ BLE) Gastrointestinal: Soft, Non-distended, No tenderness Musculoskeletal: No clubbing Integumentary: No rashes Neurological: Normal speech, Normal affect Vital Signs/Physical Exam: Temp Pulse Resp BP Pulse Ox 97.9 F 91 H 16 133/60 98 05/31/22 12:00 05/31/22 12:00 05/31/22 14:47 05/31/22 12:00 05/31/22 14:47 Laboratory Data at Discharge: WBC 4.70 K/uL (4.3-10.9) 05/28/22 03:17 Hgb 11.0 g/dL (12.0-15.0) L 05/28/22 03:17 Hct 33.6 % (36.0-45.0) L 05/28/22 03:17 Plt Count 213 K/uL (152-406) 05/28/22 03:17 Sodium 143 mmol/L (136-145) 05/31/22 05:55 Potassium 3.5 mmol/L (3.5-5.1) 05/31/22 05:55 BUN 20 mg/dL (7-18) H 05/31/22 05:55 Creatinine 1.02 mg/dL (0.55-1.02) 05/31/22 05:55 Glucose 101 mg/dL (74-106) 05/31/22 05:55 Phosphorus 3.2 mg/dL (2.5-4.9) 05/27/22 06:08 Magnesium 2.2 mg/dL (1.6-2.4) 05/30/22 03:12 Triglycerides 53 mg/dL (<150) 05/27/22 06:08 Cholesterol 136 mg/dL (<200) 05/27/22 06:08 HDL Cholesterol 81 mg/dL (40-60) H 05/27/22 06:08 Cholesterol/HDL Ratio 1.68 05/27/22 06:08 Home Medications: Ferrocite 0.5 tab PO SEECOM 01/26/19 Amlodipine [Norvasc*] 5 mg PO DAILY #30 tab 11/25/21 Hydrocodone 5/APAP 325 [Blanchard 5/325*] 1 tab PO Q6H PRN #20 tab 11/25/21 Pantoprazole [Protonix Tab*] 40 mg PO SEECOM #30 tab 11/25/21 Trazodone [Desyrel*] 100 mg PO BEDTIME #30 tab 11/25/21 Valacyclovir [Valtrex*] 1,000 mg PO DAILY #7 tab 11/25/21 Aspirin Chewable [Aspirin Chewable*] 81 mg PO DAILY tab.chew 05/31/22 Furosemide [Lasix] 40 mg PO BIDL #60 tab 05/31/22 New Medications: Furosemide [Lasix] 40 mg PO BIDL #60 tab Physician Discharge Instructions: 1. Please call and schedule a follow-up appointment with your PCP (DANITA Benavides) in 3-5 days 2. Please call and schedule a follow-up apppointment with Cardiology (Dr. Valenzuela) in 1-2 weeks Diet: AHA Activity: Fall precautions Followup: Chester Valenzuela MD [ACTIVE - CAN ADMIT] - Anderson Benavides NP [Primary Care Provider] - Time spent managing pt's care (in minutes): 25
[2022-05-31 17:01] VITALS: BP 138/65; TEMP 98.1
[2022-06-01] MEDS ORDERED: FERROCITE PO SCH (09:00)
== END 2022-05-31 17:15 | DRG 291 ==
LOC: ER 05:31 → ERHOLD 09:05 → 2ND 10:27
PROVIDERS: ADMIT Internal Medicine; ATTEND Internal Medicine
PROC: 5A09457 Assistance with Respiratory Ventilation, 24-96 Consecutive Hours, Continuous Positive Airway Pressure (ICD-10-PCS; principal; 2022-05-27)
DX: I11.0 Hypertensive heart disease with heart failure (principal); I50.33 Acute on chronic diastolic (congestive) heart failure; Z68.44 Body mass index [BMI] 60.0-69.9, adult; N17.9 Acute kidney failure, unspecified; E66.01 Morbid (severe) obesity due to excess calories; M19.09 Primary osteoarthritis, other specified site; G47.00 Insomnia, unspecified; K21.9 Gastro-esophageal reflux disease without esophagitis; I27.20 Pulmonary hypertension, unspecified; D63.8 Anemia in other chronic diseases classified elsewhere; G47.33 Obstructive sleep apnea (adult) (pediatric); Z98.84 Bariatric surgery status; Z79.82 Long term (current) use of aspirin; Z90.49 Acquired absence of other specified parts of digestive tract; Z99.89 Dependence on other enabling machines and devices; Z79.899 Other long term (current) drug therapy; Z20.822 Contact with and (suspected) exposure to COVID-19
CPT/HCPCS: 36415; 71045; 71250; 80048; 80061; 81001; 83036; 83735; 83880; 84100; 84439; 84443; 84484; 85025; 87811; 93005; 93306; 94010; 94640; 94660; 97110; 97112; 97116; 97161; 97165; 97530; 99285; J1650; J1940; J7613; J7644; U0003

== ENCOUNTER 2022-10-21 21:04 | Emergency (ER) | payer OTHER ==
--- OUTSIDE RECORDS SUMMARY | 2022-10-21 21:08 | XMS REPORT | Continuity of Care Document ---
:1955 Author Organization [facility] t Address [address] [place] [id number] Care Team Providers Name Role Phone GC_BA[facility]_Seiter_S Attending Clinician Unavailable Anderson Benavides Attending Clinician [phone] GC_[facility]_Seiter_S Admitting Clinician Unavailable Payers Payer Name Policy Type Policy Number Effective Date Expiration Date S rafal MEDICARE [place]: [id number] 2018 [employer] 00:00:00 [facility] [id number] 2019 (MEDICARE 00:00:00 SUPPLEMENT) Problems Condition Condition Condition Status Onset Resolution Last Treating Co mments Source Name Details Category Date Date Treatment Clinician Date 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 00:00: 00 Congestive Congestive Problem Active [facility] Heart 3-23 Medical failure Failure 00:00: 00 Oral Oral Problem Active [facility] herpes Herpes - Medical simplex Simplex 00:00: infection Infection 00 Morbid Morbid Problem Active [facility] obesity Obesity 8- Medical 00:00: 00 Insomnia Insomnia Problem Active [facility] a 8-19 Medical 00:00: 00 Obstructiv Obstructiv Problem Active [facility] e sleep e Sleep 8- Medical apnea Apnea 00:00: syndrome Syndrome 00 Gastroesop Gastroesop Problem Active [facility] hageal hageal 8- Medical reflux Reflux 00:00: disease Disease 00 Functional Functional Problem Active [facility] gait Gait 8 Medical abnormalit Abnormalit 00:00: y y 00 [...] MOUTH TABLET(S) DAILY. DAILY. BY MOUTH DAILY. furosemide furosemide No furosemide [facility] 40 mg 40 mg 40 mg Medical tablet TAKE tablet TAKE tablet ONE (1) ONE (1) TAKE ONE TABLET(S) TABLET(S) (1) BY MOUTH BY MOUTH TABLET(S) TWICE A TWICE A BY MOUTH DAY. DAY. TWICE A DAY. gabapentin gabapentin No gabapentin [facility] 100 mg 100 mg 100 mg Medical capsule capsule capsule TAKE ONE TAKE ONE TAKE ONE (1) (1) (1) CAPSULE(S) CAPSULE(S) CAPSULE(S) BY MOUTH BY MOUTH BY MOUTH THREE TIMES THREE TIMES THREE A DAY. A DAY. TIMES A DAY. meloxicam meloxicam No meloxicam [facility] 7.5 mg [...] DAY. ONCE A DAY. ONCE A DAY. trazodone trazodone No trazodone [facility] 50 [...] MOUTH TABLET(S) DAILY. DAILY. BY MOUTH DAILY. furosemide furosemide No furosemide [facility] 40 mg 40 mg 40 mg Medical tablet TAKE tablet TAKE tablet ONE (1) ONE (1) TAKE ONE TABLET(S) TABLET(S) (1) BY MOUTH BY MOUTH TABLET(S) TWICE A TWICE A BY MOUTH DAY. DAY. TWICE A DAY. gabapentin gabapentin No gabapentin [facility] 100 mg 100 mg 100 mg [facility] capsule capsule capsule TAKE ONE TAKE ONE TAKE ONE (1) (1) (1) CAPSULE(S) CAPSULE(S) CAPSULE(S) BY MOUTH BY MOUTH BY MOUTH THREE TIMES THREE TIMES THREE A DAY. A DAY. TIMES A DAY. Medrol Medrol No Medrol [facility] (Jose L) [...] DAY. ONCE A DAY. ONCE A DAY. trazodone trazodone No trazodone [facility] 50 [...] MOUTH TABLET(S) DAILY. DAILY. BY MOUTH DAILY. furosemide furosemide No furosemide [facility] 40 mg 40 mg 40 mg Medical tablet TAKE tablet TAKE tablet ONE (1) ONE (1) TAKE ONE TABLET(S) TABLET(S) (1) BY MOUTH BY MOUTH TABLET(S) TWICE A TWICE A BY MOUTH DAY. DAY. TWICE A DAY. gabapentin gabapentin No gabapentin [facility] 100 mg 100 mg 100 mg Medical capsule capsule capsule TAKE ONE TAKE ONE TAKE ONE (1) (1) (1) CAPSULE(S) CAPSULE(S) CAPSULE(S) BY MOUTH BY MOUTH BY MOUTH THREE TIMES THREE TIMES THREE A DAY. A DAY. TIMES A DAY. Medrol Medrol No Medrol [facility] (Jose L) [...] DAY. ONCE A DAY. ONCE A DAY. trazodone trazodone No trazodone [facility] 50 [...] MOUTH TABLET(S) DAILY. DAILY. BY MOUTH DAILY. furosemide furosemide No furosemide [facility] 40 mg 40 mg 40 mg Medical tablet TAKE tablet TAKE tablet ONE (1) ONE (1) TAKE ONE TABLET(S) TABLET(S) (1) BY MOUTH BY MOUTH TABLET(S) TWICE A TWICE A BY MOUTH DAY. DAY. TWICE A DAY. gabapentin gabapentin No gabapentin [facility] 100 mg 100 mg 100 mg Medical capsule capsule capsule TAKE ONE TAKE ONE TAKE ONE (1) (1) (1) CAPSULE(S) CAPSULE(S) CAPSULE(S) BY MOUTH BY MOUTH BY MOUTH THREE TIMES THREE TIMES THREE A DAY. A DAY. TIMES A DAY. meloxicam meloxicam No meloxicam [facility] 7.5 mg [...] DAY. ONCE A DAY. ONCE A DAY. trazodone trazodone No trazodone [facility] 50 [...] MOUTH TABLET(S) DAILY. DAILY. BY MOUTH DAILY. furosemide furosemide No furosemide [facility] 40 mg 40 mg 40 mg Medical tablet TAKE tablet TAKE tablet TWO (2) TWO (2) TAKE TWO TABLET(S) TABLET(S) (2) BY MOUTH BY MOUTH TABLET(S) DAILY. DAILY. BY MOUTH DAILY. gabapentin gabapentin No gabapentin [facility] 100 mg 100 mg 100 mg Medical capsule capsule capsule TAKE ONE TAKE ONE TAKE ONE (1) (1) (1) CAPSULE(S) CAPSULE(S) CAPSULE(S) BY MOUTH BY MOUTH BY MOUTH THREE TIMES THREE TIMES THREE A DAY. A DAY. TIMES A DAY. meloxicam meloxicam No meloxicam [facility] 7.5 mg 7.5 mg 7.5 mg Medical tablet TAKE tablet TAKE tablet ONE (1) ONE (1) TAKE ONE TABLET(S) TABLET(S) (1) BY MOUTH BY MOUTH TABLET(S) ONCE A DAY. ONCE A DAY. BY MOUTH ONCE A DAY. methocarbam methocarbam No methocarba [facility] ol 500 mg ol 500 mg mol 500 mg Medical tablet TAKE tablet TAKE tablet ONE (1) ONE (1) TAKE ONE TABLET(S) TABLET(S) (1) BY MOUTH BY MOUTH TABLET(S) EVERY EIGHT EVERY EIGHT BY MOUTH HOURS HOURS EVERY NEEDED. NEEDED. EIGHT HOURS NEEDED. oxybutynin oxybutynin No oxybutynin [facility] chloride ER chloride ER chloride Medical 5 mg 5 mg ER 5 mg tablet,exte tablet,exte tablet,ext nded nded ended release 24 release 24 release 24 hr TAKE ONE hr TAKE ONE hr TAKE (1) (1) ONE (1) TABLET(S) TABLET(S) TABLET(S) BY MOUTH BY MOUTH BY MOUTH ONCE A DAY. ONCE A DAY. ONCE A DAY. trazodone trazodone No trazodone [facility] 50 mg 50 mg 50 mg Medical tablet TAKE tablet TAKE tablet TWO (2) TWO (2) TAKE TWO TABLET(S) TABLET(S) (2) BY MOUTH BY MOUTH TABLET(S) ONCE A DAY ONCE A DAY BY MOUTH AT BEDTIME. AT BEDTIME. ONCE A DAY AT BEDTIME. valacyclovi valacyclovi No valacyclov [facility] [...] Name Observation Time Observation Value Comments Source Height 2022-08-08 00:00:00 65 [in_i] [facility] BMI (Body Mass Index) 2022-08-08 00:00:00 58.4 kg/m2 [facility] Weight 2022-08-08 00:00:00 5616 [oz_av] [facility] Height 2022-07-25 00:00:00 65 [in_i] [facility] BMI (Body Mass Index) 2022-07-25 00:00:00 58.6 kg/m2 [facility] Weight 2022-07-25 00:00:00 5632 [oz_av] [facility] BP Diastolic 2022-07-09 00:00:00 91 mm[Hg] [facility] Height 2022-07-09 00:00:00 65 [in_i] [facility] BMI (Body Mass Index) 2022-07-09 00:00:00 58.9 kg/m2 [facility] BP Systolic 2022-07-09 00:00:00 140 mm[Hg] [facility] Body Weight 2022-07-09 00:00:00 5664 [oz_av] [facility] BP Diastolic 2022-07-04 00:00:00 89 mm[Hg] [facility] Height 2022-07-04 00:00:00 65 [in_i] [facility] BMI (Body Mass Index) 2022-07-04 00:00:00 58.9 kg/m2 [facility] BP Systolic 2022-07-04 00:00:00 136 mm[Hg] [facility] Weight 2022-07-04 00:00:00 5664 [oz_av] [facility] BP Diastolic 2022-04-26 00:00:00 81 mm[Hg] [facility] Height 2022-04-26 00:00:00 65 [in_i] [facility] BMI (Body Mass Index) 2022-04-26 00:00:00 58.6 kg/m2 [facility] BP Systolic 2022-04-26 00:00:00 137 mm[Hg] [facility] Body Weight 2022-04-26 00:00:00 5632 [oz_av] [facility] BP Diastolic 2022-03-12 00:00:00 83 mm[Hg] [facility] Height 2022-03-12 00:00:00 65 [in_i] [facility] BMI (Body Mass Index) 2022-03-12 00:00:00 58.6 kg/m2 [facility] BP Systolic 2022-03-12 00:00:00 125 mm[Hg] [facility] Body Weight 2022-03-12 00:00:00 5632 [oz_av] [facility] Height 2022-02-20 00:00:00 65 [in_i] [facility] BMI (Body Mass Index) 2022-02-20 00:00:00 58.6 kg/m2 [facility] Body Weight 2022-02-20 00:00:00 5632 [oz_av] [facility] BP Diastolic 2022-01-23 00:00:00 75 mm[Hg] [facility] Height 2022-01-23 00:00:00 65 [in_i] [facility] BMI (Body Mass Index) 2022-01-23 00:00:00 58.6 kg/m2 [facility] BP Systolic 2022-01-23 00:00:00 120 mm[Hg] [facility] Body Weight 2022-01-23 00:00:00 5632 [oz_av] [facility] BP Diastolic 2022-01-02 00:00:00 59 mm[Hg] [facility] Height 2022-01-02 00:00:00 65 [in_i] [facility] BMI (Body Mass Index) 2022-01-02 00:00:00 58.6 kg/m2 [facility] BP Systolic 2022-01-02 00:00:00 119 mm[Hg] [facility] Body Weight 2022-01-02 00:00:00 5632 [oz_av] [facility] BP Diastolic 2021-12-19 00:00:00 69 mm[Hg] [facility] Height 2021-12-19 00:00:00 65 [in_i] [facility] BMI (Body Mass Index) 2021-12-19 00:00:00 58.6 kg/m2 [facility] BP Systolic 2021-12-19 00:00:00 119 mm[Hg] [facility] Body Weight 2021-12-19 00:00:00 5632 [oz_av] [facility] BP Diastolic 2021-11-30 00:00:00 68 mm[Hg] [facility] Height 2021-11-30 00:00:00 65 [in_i] [facility] BMI (Body Mass Index) 2021-11-30 00:00:00 58.6 kg/m2 [facility] BP Systolic 2021-11-30 00:00:00 122 mm[Hg] [facility] Body Weight 2021-11-30 00:00:00 5632 [oz_av] [facility] Procedures Procedure Date / Time Performed Performing Clinician [facility] e XR, chest, 2 view 2022-07-08 00:00:00 [facility] MAMMO, screening, digital, 2022-03-12 00:00:00 [facility] [...] Diagnostic Test Pending 2022-03-12 lipid panel, serum [facility] 00:00:00 [code = lipid panel, serum] Instructions [facility] Medical Encounters Start End Encounter Admission Attending Care Care Encounter Source Date/Time Date/Time Type Type Clinicians Facility Department ID 2022-09-13 2022-09-13 Outpatient [facility]Sei PRIV PRIV [id number] [facility] 00:00:00 00:00:00 ter_S [id number] Medica l 2022-09-13 2022-09-13 Outpatient [facility] PRIV PRIV [id number] [facility] 00:00:00 00:00:00 ter_S [id number] Medica l 2022-09-13 2022-09-13 Outpatient [facility] PRIV PRIV [id number] [facility] 00:00:00 00:00:00 ter_S [id number] Medica l 2022-09-13 2022-09-13 Outpatient [facility]Sei PRIV PRIV [id number] [facility] 00:00:00 00:00:00 ter_S [id number] Medica l 2022-09-13 2022-09-13 Outpatient [facility]i PRIV PRIV [id number] [facility] 00:00:00 00:00:00 ter_S [id number] Medica l 2022-09-05 2022-09-05 Outpatient [facility]i PRIV PRIV [id number] [facility] 00:00:00 00:00:00 ter_S [id number] Medica l 2022-09-05 2022-09-05 Outpatient [facility] PRIV PRIV [id number] [facility] 00:00:00 00:00:00 ter_S [id number] Medica l 2022-08-08 2022-08-08 [facility]00 00:00:00 [facility] Seiter, GC_BAHC_Pat PA: [address], [address], [place] [address] , Ph. 2022-07-25 2022-07-25 [facility] 00:00:00 00:00:00 [facility] Seiter, [facility]_Pat PA: [address], [address], [place] [address] , Ph. 2022-07-19 2022-07-19 Outpatient [facility]Sei PRIV PRIV [id number] [facility] 00:00:00 00:00:00 ter_S [id number] Medica l 2022-07-19 2022-07-19 Outpatient [facility] PRIV PRIV [id number] [facility] 00:00:00 00:00:00 ter_S [id number] Medica l 2022-07-19 2022-07-19 Outpatient [facility]Sei PRIV PRIV [id number] [facility] 00:00:00 00:00:00 ter_S [id number] Medica l 2022-07-19 2022-07-19 Outpatient [facility]Sei PRIV PRIV [id number] [facility] 00:00:00 00:00:00 ter_S [id number] Medica l 2022-07-19 2022-07-19 Outpatient [facility]Sei PRIV PRIV [id number] [facility] 00:00:00 00:00:00 ter_S [id number] Medica l 2022-07-09 2022-07-09 [facility]:00:00 00:00:00 [facility] Seiter, GC_BAHC_Pat PA: [address], [address], [place] [address] , Ph. 2022-07-04 2022-07-04 [facility] 00:00:00 00:00:00 [facility] Seiter, GC_BAHC_Pat PA: [address], [address], [place] [address] , Ph. 2022-06-01 2022-06-01 Outpatient [facility]_Sei PRIV PRIV [id number] [facility] 00:00:00 00:00:00 ter_S [id number] Medica l 2022-06-01 2022-06-01 Outpatient [facility]Sei PRIV PRIV [id number] [facility] 00:00:00 00:00:00 ter_S [id number] Medica l 2022-06-01 2022-06-01 Outpatient [facility]_Sei PRIV PRIV [id number] [facility] 00:00:00 00:00:00 ter_S [id number] Medica l 2022-06-01 2022-06-01 Outpatient [facility]_Sei PRIV PRIV [id number] [facility] 00:00:00 00:00:00 ter_S [id number] Medica l 2022-05-27 2022-05-27 Outpatient [facility]Sei PRIV PRIV [id number] [facility] 00:00:00 00:00:00 ter_S [id number] Medica l 2022-04-26 2022-04-26 [facility]:00:00 00:00:00 [facility] Seiter, GC_BAHC_Pat PA: [address], [address], [place] [address] , Ph. 2022-04-25 2022-04-25 Outpatient [facility]_Sei PRIV PRIV [id number] [facility] 00:00:00 00:00:00 ter_S [id number] Medica l 2022-04-25 2022-04-25 Outpatient [facility]Sei PRIV PRIV [id number] [facility] 00:00:00 00:00:00 ter_S [id number] Medica l 2022-03-12 2022-03-12 [facility] [id number] [facility] 00:00:00 00:00:00 [facility] Makayla, GC_BAHC_Pat PA: [address], [address], [place] [address] , Ph. 2022-03-09 2022-03-09 Outpatient [facility]_Sei PRIV PRIV [id number] [facility] 00:00:00 00:00:00 ter_S [id number] Medica l 2022-02-20 2022-02-20 [facility] [id number] [facility] 00:00:00 00:00:00 [facility] chelle Benavides, GC_BAHC_Pat PA: [address], [address], [place] [address] , Ph. 2022-02-13 2022-02-13 Outpatient [facility]_Sei PRIV PRIV [id number] [facility] 00:00:00 00:00:00 ter_S [id number] Medica l 2022-02-09 2022-02-09 Outpatient [facility]_Sei PRIV PRIV [id number] [facility] 00:00:00 00:00:00 ter_S [id number] Medica l 2022-01-24 2022-01-24 Outpatient [facility]_Sei PRIV PRIV [id number] [facility] 00:00:00 00:00:00 ter_S [id number] Medica l 2022-01-23 2022-01-23 [facility] 12 [facility] 00:00:00 00:00:00 [facility] Seiter, GC_BAHC_Pat PA: [address], [address], [place] [address] , Ph. 2022-01-12 2022-01-12 Outpatient [facility]_Sei PRIV PRIV [id number] [facility] 00:00:00 00:00:00 ter_S [id number] Medica l 2022-01-02 2022-01-02 [facility] 21 [facility] 00:00:00 00:00:00 [facility] Seiter, GC_BAHC_Pat PA: [address], [address], [place] [address] , Ph. 2021-12-20 2021-12-20 Outpatient [facility]_Sei PRIV PRIV [id number] [facility] 00:00:00 00:00:00 ter_S [id number] Medica l 2021-12-19 2021-12-19 Outpatient Seiter, PRIV PRIV [id number] 00:00:00 00:00:00 Anderson Maier [id number] 2021-12-19 2021-12-19 [facility] [id number] [facility] 00:00:00 00:00:00 [facility] Seiter, GC_BAHC_Pat PA: [address], [address], [place] [address] , Ph. 2021-12-01 2021-12-01 Outpatient [facility]_Sei PRIV PRIV [id number] [facility] 00:00:00 00:00:00 ter_S [id number] Medica l 2021-11-30 2021-11-30 Outpatient [facility]_Sei PRIV PRIV [id number] [facility] 00:00:00 00:00:00 ter_S [id number] Medica l 2021-11-30 2021-11-30 Outpatient ZACARIAS Benavides PRIV [id number] 00:00:00 00:00:00 Anderson Maier [id number] 2021-11-30 2021-11-30 [facility] 00:00:00 00:00:[address] [facility] Medic al Makayla, GC_BAHC_Pat PA: [address] [facility], [address], [place] [address] , Ph. 2021-11-29 2021-11-29 Outpatient GC_[facility]_Sei PRIV PRIV [id number] [facility] 00:00:00 00:00:00 ter_S [id number] Medica l 2021-11-28 2021-11-28 Outpatient [facility]_Sei PRIV PRIV [id number] [facility] 00:00:00 00:00:00 ter_S [id number] Medica l Results This patient has no known results.
[2022-10-21] MEDS ORDERED: KETOROLAC 30 MG/ML INJ ONE (22:36)
--- NOTE | 2022-10-21 23:39 | ER ---
Nurse's Notes [facility] Name: Fabiana Garcia Age: 67 yrs Sex: Female : 1955 Arrival Date: 10/21/2022 Time: 21:04 Bed 11 Private MD: Diagnosis: Pain in right shoulder Presentation: 10/21 21:21 Chief complaint: Patient states: RIGHT SHOULDER PAIN X10 DAYS. PT NOT SURE IF SHE cm10 INJURED IT. Coronavirus screen: Vaccine status: Patient reports receiving the 2nd dose of the covid vaccine. Ebola Screen: Patient denies travel to an Ebola-affected area in the 21 days before illness onset. No symptoms or risks identified at this time. Initial Sepsis Screen: Does the patient meet any 2 criteria? No. Patient's initial sepsis screen is negative. Does the patient have a suspected source of infection? No. Patient's initial sepsis screen is negative. Risk Assessment: Do you want to hurt yourself or someone else? Patient reports no desire to harm self or others. Onset of symptoms was October 12, 2022. 21:21 Method Of Arrival: Wheelchair cm10 21:21 Acuity: GEORGES 4 cm10 Triage Assessment: 21:24 General: Appears in no apparent distress. comfortable, Behavior is calm, cooperative. cm10 Pain: Complains of pain in posterior aspect of right shoulder Pain radiates to right elbow Pain currently is 9 out of 10 on a pain scale. Neuro: No deficits noted. Level of Consciousness is awake, alert, Oriented to person, place, time, situation. Historical: - Allergies: 21:23 No Known Allergies; cm10 - PMHx: 21:23 Hypertensive disorder; Congestive heart failure; Pancreatitis; cm10 - PSHx: 21:23 section; Gastric Bypass; cm10 - Immunization history:: Adult Immunizations unknown. - Social history:: Smoking status: Patient denies any tobacco usage or history of. Screenin:25 Clinical [place] Withdrawal Assessment for Alcohol, revised (CIWA-Ar): kl Nausea/Vomiting:. [facility] ED Fall Risk Assessment (Adult) History of falling in the last 3 months, including since admission No falls in past 3 months (0 pts) Confusion or Disorientation No (0 pts) Intoxicated or Sedated No (0 pts) Impaired Gait Yes (1 pt) Mobility Assist Device Used Yes (1 pt) Altered Elimination No (0 pt) Score/Fall Risk Level 0 - 2 = Low Risk Oriented to surroundings, Maintained a safe environment. Abuse screen: Denies threats or abuse. Nutritional screening: No deficits noted. Tuberculosis screening: No symptoms or risk factors identified. Assessment: 23:49 Reassessment: Patient states feeling better. Patient states symptoms have improved. Vital Signs: 21:21 BP 140 / 77; Pulse 95; Resp 22 S; Temp 98.1; Pulse Ox 95% on 2 lpm NC; Weight 163.29 cm10 kg; Height 5 ft. 5 in. ; Pain 9/10; 23:49 BP 128 / 69; Pulse 85; Resp 18; Pulse Ox 94% ; kl 21:21 Body Mass Index 59.91 (163.29 kg, 165.1 cm) cm10 21:21 Pain Scale: Adult cm10 ED Course: 21:09 Patient arrived in ED. am2 21:23 Triage completed. cm10 21:24 Dorian Stoddard PA is PHCP. cp 21:24 Derrell Cat MD is Attending Physician. cp 21:25 Arm band placed on Patient placed in an exam room, on a stretcher. cm10 22:47 XRAY Shoulder RIGHT 2 view In Process Unspecified. EDMS 23:37 Jeremy Little MD is Referral Physician. cp 23:50 No provider procedures requiring assistance completed. Patient did not have IV access kl during this emergency room visit. Administered Medications: 22:30 Drug: Ketorolac IM 30 mg Route: IM; Site: left deltoid; kl 23:50 Follow up: Response: Adverse reaction, Physician notified kl Outcome: 23:38 Discharge ordered by . cp 23:50 Patient left the ED. Signatures: Dispatcher [employer] EDMS Jolie Paz RN Dorian Christina PA PA cp Moreno, Amanda am2 Leona Medina RN RN 10
--- NOTE | 2022-10-21 23:39 | EDPHYS ---
Physician Documentation [facility] Name: Fabiana Garcia Age: 67 yrs Sex: Female : 1955 Arrival Date: 10/21/2022 Time: 21:04 Bed 11 Private MD: ED Physician Derrell Cat HPI: 10/21 22:00 This 67 yrs old Female presents to ER via Wheelchair with complaints of Shoulder Pain. cp 22:00 The patient or guardian complains of pain, that is acute. anterior and lateral right cp shoulder. Context: resulted from an unknown reason, was lifting grandchild, denies specific injury, The patient reports no decreased range of motion. The patient reports no obvious deformity. Onset: The symptoms/episode began/occurred 10 day(s) ago. Modifying factors: The symptoms are aggravated by lifting and raising right arm. Associated signs and symptoms: Pertinent negatives: chest pain, diaphoresis, neck pain, Numbness in right hand and right arm shortness of breath, Weakness in right hand and right arm. Severity of symptoms: in the emergency department the symptoms are unchanged, despite home interventions. Historical: - Allergies: 21:23 No Known Allergies; cm10 - PMHx: 21:23 Hypertensive disorder; Congestive heart failure; Pancreatitis; cm10 - PSHx: 21:23 section; Gastric Bypass; cm10 - Immunization history:: Adult Immunizations unknown. - Social history:: Smoking status: Patient denies any tobacco usage or history of. ROS: 22:05 MS/extremity: Positive for pain, tenderness, of the right shoulder, Negative for injury cp or acute deformity, decreased range of motion, paresthesias. 22:05 Eyes: Negative for injury, pain, redness, and discharge. cp 22:05 Constitutional: Negative for body aches, chills, fever, poor PO intake. 22:05 Neck: Negative for pain with movement, pain at rest, stiffness. 22:05 Cardiovascular: Negative for chest pain. 22:05 Respiratory: Negative for cough, shortness of breath, wheezing. 22:05 Abdomen/GI: Negative for abdominal pain, nausea, vomiting, and diarrhea. 22:05 Back: Negative for pain at rest, pain with movement. 22:05 Neuro: Negative for altered mental status, dizziness, headache, numbness, weakness. 22:05 All other systems are negative. Exam: 22:10 Constitutional: The patient appears in no acute distress, alert, awake, cp non-diaphoretic, non-toxic, well developed, well nourished, obese, uncomfortable. 22:10 Head/Face: Normocephalic, atraumatic. cp 22:10 Eyes: Periorbital structures: appear normal, Conjunctiva: normal, no exudate, no injection, Sclera: no appreciated abnormality, Lids and lashes: appear normal, bilaterally. 22:10 ENT: External ear(s): are unremarkable, Nose: is normal, Mouth: Lips: moist, Oral mucosa: pink and intact, moist, Posterior pharynx: is normal, airway is patent, no erythema, no exudate. 22:10 Neck: C-spine: vertebral tenderness, is not appreciated, crepitus, is not appreciated, ROM/movement: is normal, is supple, without pain, no range of motions limitations. 22:10 Chest/axilla: Inspection: normal, Palpation: is normal, no crepitus, no tenderness. 22:10 Cardiovascular: Rate: normal. 22:10 Respiratory: the patient does not display signs of respiratory distress, Respirations: normal, no use of accessory muscles, no retractions, labored breathing, is not present, Breath sounds: decreased breath sounds, that are mild, throughout, stridor, is not appreciated, wheezing: is not appreciated. 22:10 Abdomen/GI: Exam negative for discomfort, distension, guarding, Inspection: obese 22:10 Back: pain, that is mild, of the right trapezius and right scapular area, ROM is normal. 22:10 Musculoskeletal/extremity: Extremities: grossly normal except: noted in the right shoulder: pain, tenderness to palpation anterior and lateral right shoulder, pain with passive ROM but no restriction noted, Pulses: noted to be 2+ in the right radial artery, the right hand and right arm Sensation intact. 22:10 Neuro: Orientation: to person, place \T\ time. Mentation: is normal. Vital Signs: 21:21 BP 140 / 77; Pulse 95; Resp 22 S; Temp 98.1; Pulse Ox 95% on 2 lpm NC; Weight 163.29 cm10 kg; Height 5 ft. 5 in. ; Pain 9/10; 23:49 BP 128 / 69; Pulse 85; Resp 18; Pulse Ox 94% ; kl 21:21 Body Mass Index 59.91 (163.29 kg, 165.1 cm) cm10 21:21 Pain Scale: Adult cm10 MDM: 21:28 Patient medically screened. cp 22:00 Differential diagnosis: Anterior dislocation with fracture, Anterior dislocation cp without fracture, Posterior dislocation with fracture, Posterior dislocation without fracture, tendonitis, rotator cuff injury. 23:35 Data reviewed: vital signs, nurses notes, radiologic studies, plain films. cp 23:35 I considered the following discharge prescriptions or medication management in the cp emergency department Medications were administered in the Emergency Department. See MAR. Independent interpretation of the following test(s) in the Emergency Department X-Ray: My interpretation is images of right shoulder negative for fracture. Care significantly affected by the following chronic conditions: Hypertension, Obesity. Counseling: I had a detailed discussion with the patient and/or guardian regarding: the historical points, exam findings, and any diagnostic results supporting the discharge/admit diagnosis, radiology results, the need for outpatient follow up, a orthopedic surgeon, to return to the emergency department if symptoms worsen or persist or if there are any questions or concerns that arise at home. Response to treatment: the patient's symptoms have mildly improved after treatment, and as a result, I will discharge patient. 10/21 21:56 Order name: XRAY Shoulder RIGHT 2 view cp Administered Medications: 22:30 Drug: Ketorolac IM 30 mg Route: IM; Site: left deltoid; kl 23:50 Follow up: Response: Adverse reaction, Physician notified kl Disposition: 10/22 20:31 Co-signature as Attending Physician, Derrell Cat MD I agree with the assessment sp4 and plan of care. I reviewed the patient's care provided by the Advanced Practice Provider and agree with the diagnosis and treatment plan. Disposition Summary: 10/21/22 23:38 Discharge Ordered Location: Home cp Problem: new cp Symptoms: have improved cp Condition: Stable cp Diagnosis - Pain in right shoulder cp Followup: cp - With: Jeremy Little MD - When: 1 week - Reason: Recheck today's complaints Discharge Instructions: - Discharge Summary Sheet cp - Shoulder Pain cp - Shoulder Range of Motion Exercises cp Forms: - Medication Reconciliation Form cp - Thank You Letter cp - Antibiotic Education cp - Prescription Opioid Use cp - Patient Portal Instructions.htm cp Prescriptions: - Tramadol 50 mg Oral Tablet - take 1 tablet by ORAL route every 8 hours as needed; 12 tablet; Refills: 0, cp Product Selection Permitted - Medrol (Jose L) 4 mg Oral Tablets, Dose Pack - take 1 tablet by ORAL route as directed - follow package instructions; 1 cp packet; Refills: 0, Product Selection Permitted Signatures: Dispatcher [employer] Jolie Hernandez RN RN kl Dorian Stoddard, PA PA Derrell Ordaz MD MD sp4 Leona Medina RN RN cm10 Corrections: (The following items were deleted from the chart) 10/21 23:50 23:01 Sling ordered. maryam sethi
[2022-10-22 00:35] VITALS: TEMP 98.1
[2022-10-22 00:37] VITALS: BP 128/69; O2SAT 94
--- NOTE | 2022-10-22 14:11 | RAD REPORT ---
EXAM DESCRIPTION: Shoulder Right 2 View CLINICAL HISTORY: 67-year-old female with pain. TECHNIQUE: Limited 2 views of the right shoulder were obtained in AP, internal/external rotation. COMPARISON: None. FINDINGS: There is no fracture or dislocation. The joint spaces are preserved. No soft tissue abnorm alities are seen. Degenerative change at the acromioclavicular and glenohumeral joint. IMPRESSION: No acute radiographic abnormality. Electronically signed by: Jodi Lezama MD 10/21/2022 11:32 PM CDT Due to temporary technical issues with the PACS/Fluency reporting system, reports are being signed by the in house radiologists without review as a courtesy to insure prompt reporting. The interpreting radiologist is fully responsible for the content of the report.
== END 2022-10-21 23:50 | disposition home or self-care (01) ==
LOC: ER 21:04
DX: M25.511 Pain in right shoulder (principal)
CPT/HCPCS: 96372; 99284

== ENCOUNTER 2022-12-30 10:33 | Inpatient (IN) | payer OTHER ==
--- OUTSIDE RECORDS SUMMARY | 2022-12-30 10:38 | XMS REPORT | Continuity of Care Document ---
:1955 Author Organization [facility] t Address [address] [place] [address] Care Team Providers Name Role Phone [facility]_S Attending Clinician Unavailable Anderson Benavides Attending Clinician [phone] [facility]_S Admitting Clinician Unavailable Payers Payer Name Policy Type Policy Number Effective Date Expiration Date S rafal MEDICARE B-[place]: [id number] 2018 [place] 00:00:00 [facility] [id number] 2019 (MEDICARE 00:00:00 SUPPLEMENT) Problems Condition Condition [...] Diastolic 2022-07-09 00:00:00 91 mm[Hg] Benita Seals [facility] Height 2022-07-09 00:00:00 65 [in_i] [facility] [...] Medical BP Systolic 2022-07-04 00:00:00 136 mm[Hg] [facility] Weight 2022-07-04 00:00:00 5664 [oz_av] [facility] BP Diastolic 2022-04-26 00:00:00 81 mm[Hg] [facility] Height 2022-04-26 00:00:00 65 [in_i] [facility] BMI (Body Mass Index) 2022-04-26 00:00:00 58.6 kg/m2 [facility] BP Systolic 2022-04-26 00:00:00 137 mm[Hg] [facility] Weight 2022-04-26 00:00:00 5632 [oz_av] [facility] BP Diastolic 2022-03-12 00:00:00 83 mm[Hg] [facility] Height 2022-03-12 00:00:00 65 [in_i] [...] Procedure Date / Time Performed Performing Clinician [facility] e XR, chest, 2 view 2022-07-08 [...] 00:00:00 [code = lipid panel, serum] Instructions [facility] Medical Encounters Start End Encounter Admission Attending Care Care Encounter Source Date/Time Date/Time Type Type Clinicians Facility Department ID 2022-11-14 2022-11-14 Outpatient [facility] [id number] [facility] 00:00:00 [facility] [id number] Medica l 2022-11-14 2022-11-14 Outpatient [facility] [id number] [facility] 00:[facility]:00 00:00:00 ter_S [id number] Medica l 2022-11-06 2022-11-06 Outpatient [facility] [id number] [facility] 00:[facility]:00 00:00:00 ter_S [id number] Medica l 2022-11-06 2022-11-06 Outpatient [facility] PRIV [id number] [facility] 00:00:00 00:00:00 ter_S [id number] Medica l 2022-09-13 2022-09-13 Outpatient [facility]IV [id number] [facility] 00:00:00 00:00:00 ter_S [id number] Medica l 2022-09-13 2022-09-13 Outpatient [facility] [id number] [facility] 00:[facility]:00 00:00:00 ter_S [id number] Medica l 2022-09-13 2022-09-13 Outpatient [facility] PRIV [id number] [facility] 00:[facility]:00 00:00:00 ter_S [id number] Medica l 2022-09-13 2022-09-13 Outpatient [facility] PRIV [id number] [facility] 00:00:00 00:00:00 ter_S [id number] Medica l 2022-09-13 2022-09-13 Outpatient [facility] PRIV [id number] [facility] 00:00:00 00:00:00 ter_S [id number] Medica l 2022-09-13 2022-09-13 Outpatient [facility]IV PRIV [id number] [facility] 00:00:00 00:00:00 ter_S [id number] Medica l 2022-09-13 2022-09-13 Outpatient [facility] PRIV [id number] [facility] 00:00:00 00:00:00 ter_S [id number] Medica l 2022-09-13 2022-09-13 Outpatient [facility]IV PRIV [id number] [facility] 00:00:00 00:00:00 ter_S [id number] Medica l 2022-09-05 2022-09-05 Outpatient [facility]IV PRIV [id number] [facility] 00:00:00 00:00:00 ter_S [id number] Medica l 2022-09-05 2022-09-05 Outpatient [facility] PRIV [id number] [facility] 00:00:00 00:00:00 ter_S [id number] Medica l 2022-08-08 2022-08-08 [facility] [id number] [facility] 00:00:00 00:00:00 [facility] Seiter, GC_BAHC_Pat PA: [address], [address], [place] [address] , Ph. 2022-07-25 2022-07-25 [facility] 13 [facility] 00:00:00 00:00:00 [facility] Seiter, [facility]_Pat PA: [address], [address], [place] [address] , Ph. 2022-07-19 2022-07-19 Outpatient [facility] PRIV PRIV [id number] [facility] 00:00:00 00:00:00 ter_S [id number] Medica l 2022-07-19 2022-07-19 Outpatient [facility] PRIV PRIV [id number] [facility] 00:00:00 00:00:00 ter_S [id number] Medica l 2022-07-19 2022-07-19 Outpatient [facility] PRIV PRIV [id number] [facility] 00:00:00 00:00:00 ter_S [id number] Medica l 2022-07-19 2022-07-19 Outpatient [facility] PRIV PRIV [id number] [facility] 00:00:00 00:00:00 ter_S [id number] Medica l 2022-07-19 2022-07-19 Outpatient [facility] PRIV PRIV [id number] [facility] 00:00:00 00:00:00 ter_S [id number] Medica l 2022-07-09 2022-07-09 [facility]:00 00:00:00 [facility] Seiter, GC_[facility]_Pat PA: [address], [address], [place] [address] , Ph. 2022-07-04 2022-07-04 [facility]:00:00 00:00:00 [facility] iter, GC_BAHC_Pat PA: [address], [address], [place] [address] , Ph. 2022-06-01 2022-06-01 Outpatient [facility] PRIV PRIV [id number] [facility] 00:00:00 00:00:00 ter_S [id number] Medica l 2022-06-01 2022-06-01 Outpatient [facility] PRIV PRIV [id number] [facility] 00:00:00 00:00:00 ter_S [id number] Medica l 2022-06-01 2022-06-01 Outpatient [facility] PRIV PRIV [id number] [facility] 00:00:00 00:00:00 ter_S [id number] Medica l 2022-06-01 2022-06-01 Outpatient [facility] PRIV PRIV [id number] [facility] 00:00:00 00:00:00 ter_S [id number] Medica l 2022-05-27 2022-05-27 Outpatient [facility] PRIV PRIV [id number] [facility] 00:00:00 00:00:00 ter_S [id number] Medica l 2022-04-26 2022-04-26 [facility] 13 [facility] 00:00:00 00:00:00 [facility] - Medic [facility] iter, GC_BAHC_Pat PA: [address], [place] [address] , Ph. 2022-04-25 2022-04-25 Outpatient [facility] PRIV PRIV [id number] [facility] 00:00:00 00:00:00 ter_S [id number] Medica l 2022-04-25 2022-04-25 Outpatient [facility] PRIV PRIV [id number] [facility] 00:00:00 00:00:00 ter_S [id number] Medica l 2022-03-12 2022-03-12 [facility] [id number] [facility] 00:00:00 00:00:00 [facility] Seiter, GC_BAHC_Pat PA: [address], [address], [place] [address] , Ph. 2022-03-09 2022-03-09 Outpatient [facility] PRIV PRIV [id number] [facility] 00:00:00 00:00:00 ter_S [id number] Medica l 2022-02-20 2022-02-20 [facility] [id number] [facility] 00:00:00 00:00:00 [facility] Seiter, GC_BAHC_Pat PA: [address], [address], [place] [address] , Ph. 2022-02-13 2022-02-13 Outpatient [facility] PRIV PRIV [id number] [facility] 00:00:00 00:00:00 ter_S [id number] Medica l 2022-02-09 2022-02-09 Outpatient [facility] PRIV PRIV [id number] [facility] 00:00:00 00:00:00 ter_S [id number] Medica l 2022-01-24 2022-01-24 Outpatient [facility] PRIV PRIV [id number] [facility] 00:00:00 00:00:00 ter_S [id number] Medica l 2022-01-23 2022-01-23 [facility] 12 [facility] 00:00:00 00:00:00 [facility] Seiter, GC_BAHC_Pat PA: [address], [address], [place] [address] , Ph. 2022-01-12 2022-01-12 Outpatient [facility] PRIV PRIV [id number] [facility] 00:00:00 00:00:00 ter_S [id number] Medica l 2022-01-02 2022-01-02 [facility]:00 00:00:00 [facility] Seiter, GC_BAHC_Pat PA: [address], [address], [place] [address] , Ph. 2021-12-20 2021-12-20 Outpatient [facility] PRIV PRIV [id number] [facility] 00:00:00 00:00:00 ter_S [id number] Medica l 2021-12-19 2021-12-19 Outpatient Seiter, PRIV PRIV [id number] 00:00:00 00:00:00 Anderson Maier [id number] 2021-12-19 2021-12-19 [facility] 07 [facility] 00:00:00 00:00:00 [facility] Seiter, GC_BAHC_Pat PA: [address], [address], [place] [address] , Ph. 2021-12-01 2021-12-01 Outpatient [facility] PRIV PRIV [id number] [facility] 00:00:00 00:00:00 ter_S [id number] Medica l 2021-11-30 2021-11-30 Outpatient [facility] PRIV PRIV [id number] [facility] 00:00:00 00:00:00 ter_S [id number] Medica l 2021-11-30 2021-11-30 Outpatient Seiter, PRIV PRIV [id number] 00:00:00 00:00:00 Anderson Maier [id number] 2021-11-30 2021-11-30 [facility] 19 [facility] 00:00:00 00:00:00 [facility] Seiter, GC_BAHC_Pat PA: [address], [address], [place] [address] , Ph. 2021-11-29 2021-11-29 Outpatient [facility] PRIV PRIV [id number] [facility] 00:00:00 00:00:00 ter_S [id number] Medica l 2021-11-28 2021-11-28 Outpatient [facility]Sei PRIV PRIV [facility] [id number] [facility] 00:00:00 00:00:00 ter_S [id number] Medica l Results This patient has no known results.
[2022-12-30] MEDS ORDERED: ASPIRIN 81 MG CHEWABLE TABLET ONE (11:14)
[2022-12-30] MEDS ORDERED: FUROSEMIDE 40 MG/4 ML VIAL ONE (11:15)
[2022-12-30 11:18] LABS: Absolute Lymphocytes (CBC) 0.9 K/uL (0.7-4.9); Hematocrit 25.7 % (36.0-45.0); Lymphocytes % 6.8 % (15.3-44.8); MCV 71.8 fL (80-100); MPV 8.6 fL (7.6-11.3); Platelets 146 thou/uL (152-406); RBC Red Blood Cell Count 3.58 M/uL (3.86-4.86)
[2022-12-30 11:24] LABS: Specific Gravity 1.015 (1.005-1.030); Urine Bacteria >50 /HPF (<20); Urine Bilirubin NEGATIVE (Negative); Urine Blood Negative (Negative); Urine Clarity Turbid (Clear); Urine Color Light-Yellow (Yellow); Urine Glucose NEGATIVE (Negative); Urine Mucus Slight /HPF (None Seen); Urine Protein NEGATIVE (Negative); Urine RBC <5 /HPF (None Seen); Urine Urobilinogen Normal (Normal)
[2022-12-30 11:25] LABS: Protime INR 1.49
--- NOTE | 2022-12-30 11:42 | RAD REPORT ---
EXAM DESCRIPTION: Debbie Single View12/30/2022 11:37 am CLINICAL HISTORY: Shortness of breath COMPARISON: May 2022 FINDINGS: The lungs appear clear of acute infiltrate. The heart is mildly enlarged IMPRESSION: No acute abnormalities displayed
[2022-12-30 11:51] LABS: Arterial Blood Carboxyhemoglob 1.2 % (0-1.5); Blood O2 Saturation 94.5 % (92-98.5)
[2022-12-30 12:08] LABS: Blood Morphology Comment NOTED (NOT SEEN); Platelet Estimate DECR; White Blood Cell Scan OK (OK)
[2022-12-30 12:09] LABS: Anisocytosis 1+; Hypochromasia 1+
--- NOTE | 2022-12-30 12:22 | RAD REPORT ---
EXAM DESCRIPTION: USExtrem Venous W Compress Bil12/30/2022 12:02 pm CLINICAL HISTORY: Leg swelling COMPARISON: 2021 FINDINGS: The common femoral, superficial femoral, greater saphenous, popliteal and posterior tibial veins bilaterally are compressible and demonstrate augmentation. Doppler demonstrates good flow. Grayscale, color and spectral analysis performed on all vessels IMPRESSION: No evidence of deep venous thrombosis involving either lower extremity.
--- NOTE | 2022-12-30 12:33 | ER ---
Nurse's Notes [facility] Name: Fabiana Garcia Age: 67 yrs Sex: Female : 1955 Arrival Date: 12/30/2022 Time: 10:33 Bed 3 Private MD: Diagnosis: Severe sepsis without septic shock;Cellulitis of right lower limb;UTI/ Urinary tract infection, site not specified;Iron deficiency anemia, unspecified Presentation: 12/30 10:57 Chief complaint: Patient states: Shortness of breath and right leg swelling, hx of CHF. jl7 Coronavirus screen: At this time, the client does not indicate any symptoms associated with coronavirus-19. Ebola Screen: No symptoms or risks identified at this time. Initial Sepsis Screen: Does the patient meet any 2 criteria? RR > 20 per min. HR > 90 bpm. Does the patient have a suspected source of infection? No. Patient's initial sepsis screen is negative. Risk Assessment: Do you want to hurt yourself or someone else? Patient reports no desire to harm self or others. Onset of symptoms is unknown. 10:57 Method Of Arrival: Ambulatory [facility] 10:57 Acuity: GEORGES 2 jl7 Triage Assessment: 10:59 General: Appears in no apparent distress. uncomfortable, Behavior is cooperative, jl7 agitated, anxious, restless. Pain: Complains of pain in right leg. Respiratory: Reports shortness of breath at rest Onset: The symptoms/episode began/occurred gradually, the patient has moderate shortness of breath. Historical: - Allergies: 10:59 No Known Allergies; jl7 - Home Meds: 10:59 Lasix Oral [Active]; amlodipine oral [Active]; jl7 15:28 gabapentin 100 mg oral capsule every 8 hours [Active]; loratadine 10 mg oral ld1 Tablet,disintegrating daily [Active]; amlodipine 5 mg tablet daily [Active]; valacyclovir 500 mg Oral tablet daily [Active]; spironolactone 25 mg/5 mL Oral suspension daily [Active]; furosemide 40 mg Oral tablet daily [Active]; oxybutynin chloride 5 mg Oral Tablet, Extended Release 24 hr daily [Active]; fluticasone propion-salmeterol 250-50 mcg/dose inhalation Blister, With Inhalation Device once [Active]; trazodone 50 mg Oral tablet once [Active]; - PMHx: 10:59 Congestive heart failure; Hypertensive disorder; Pancreatitis; jl7 - PSHx: 10:59 section; Gastric Bypass; jl7 - Immunization history:: Adult Immunizations unknown. - Social history:: Smoking status: Patient denies any tobacco usage or history of. Screenin:49 [facility] ED Fall Risk Assessment (Adult) History of falling in the last 3 months, ld1 including since admission No falls in past 3 months (0 pts). Abuse screen: Denies threats or abuse. Denies injuries from another. Nutritional screening: No deficits noted. Tuberculosis screening: No symptoms or risk factors identified. Assessment: 10:50 Reassessment: Pt unable to transfer onto stretcher independently. This nurse and 7 Shania earth science technical officer assisted pt onto bed. Pt informed that the provider ordered a urine test and pt verbally agreed to a straight cath to safely obtain a urine as ordered. 11:25 Reassessment: Pt states "I have the right to deny any other procedure yall do on me. ld1 That straight cath did not feel good." Notified ERP and Charge nurse of patients complaints. 12:21 Reassessment: No changes from previously documented assessment. Patient and/or family ld1 updated on plan of care and expected duration. Pain level reassessed. Patient states symptoms have not improved. 13:08 Reassessment: Hospitalist at bedside with patient. ld1 13:08 Reassessment: No changes from previously documented assessment. Patient and/or family ld1 updated on plan of care and expected duration. Pain level reassessed. Pt c/o pain all over body. Notified ERP. 14:52 Reassessment: attempted to call report no answer. ko1 15:31 Cardiovascular: Rhythm is regular. Respiratory: Airway is patent Respiratory effort is ko1 even, Breath sounds are diminished bilaterally. Vital Signs: 10:57 BP 130 / 63; Pulse 107; Resp 21; Temp 98.5; Pulse Ox 89% on 2 lpm NC; Weight 165.56 kg jl7 (M); Pain 10/10; 10:58 BP 130 / 63; Pulse 105; Resp 18; Pulse Ox 100% on 3 lpm NC; ld1 11:07 BP 124 / 65; Pulse 103; Resp 18; Pulse Ox 100% on 3 lpm NC; ld1 11:30 BP 128 / 58; Pulse 101; Resp 18; Pulse Ox 99% on 2 lpm NC; ld1 12:30 BP 123 / 61; Pulse 92; Resp 18; Pulse Ox 100% on 2 lpm NC; ld1 13:10 BP 110 / 71; Pulse 93; Resp 18; Pulse Ox 100% on 2 lpm NC; ld1 13:49 BP 114 / 62; Pulse 95; Resp 21; Pulse Ox 97% on 2 lpm NC; ld1 10:57 Pain Scale: Adult jl7 ED Course: 10:34 Patient arrived in ED. rg4 10:36 Nora Felix MD is Attending Physician. cp3 10:38 Laxmi Laurent FNP-C is PHCP. snw 10:59 Triage completed. jl7 11:01 Arm band placed on right wrist. jl7 11:13 Urinalysis w/ reflexes Sent. ld1 11:13 Ptt, Activated Sent. ld1 11:13 Protime (+inr) Sent. ld1 11:13 Lactate w/ 2H reflex if indic. Sent. ld1 11:13 CMP Sent. ld1 11:13 CBC with Diff Sent. ld1 11:13 Blood Culture Adult (2) Sent. ld1 11:13 No provider procedures requiring assistance completed. Straight cath inserted, using ld1 sterile technique, 16 Fr. Specimen obtained. Returned clear yellow urine. Patient tolerated well. 11:14 Inserted saline lock: 20 gauge in left antecubital area, using aseptic technique. Blood ld1 collected. 11:39 Chest Single View XRAY In Process Unspecified. EDMS 11:47 Patient has correct armband on for positive identification. Notified Nurse Practitioner dwayne and/or Physician Botany Teacher of a critical lab result(s), Lactate 3.5. 12:04 US Extremity Venous W Compression Manoj In Process Unspecified. EDMS 12:32 Reinaldo Miguel MD is Hospitalizing Provider. snw 12:48 TS Sent. ld1 13:06 Applied purewick to patient. Patient states "I do not think I am going to like this but ld1 I will give it a try." Reminded patient that she was unable to ambulate or roll without pain and purewick would prevent patient from being wet from urine. Charge nurse spoke with patient about situation and explained the need for purewick due to Lasix administration. 13:42 Attending Physician role handed off by Nora Felix MD ms3 13:42 Garcia Holbrook DO is Attending Physician. ms3 13:49 Zoya Holbrook, RN is Primary Nurse. ld1 13:49 front desk monitor on. Pulse ox on. NIBP on. Door closed. Noise minimized. Warm blanket ld1 given. 14:34 Add On-Lab Sent. ko1 15:00 Lactate w/ 2H reflex if indic. Sent. ld1 15:31 Provided Education on: admit. ko1 15:31 Patient admitted, IV remains in place. ko1 Administered Medications: 12:48 Drug: Piperacillin-Tazobactam IVPB 3.375 grams IVPB once over 60 mins; (mix in NS 100 ld1 mL) Route: IVPB; Infused Over: 60 mins; Site: left antecubital; 13:01 Drug: Furosemide IVP 40 mg IVP once; give over 2 minutes Route: IVP; Site: left ld1 antecubital; 13:01 Drug: Aspirin PO 81 mg PO once Route: PO; ld1 15:00 Drug: fentaNYL (PF) IVP 12.5 mcg IVP once Route: IVP; Site: left antecubital; ld1 Medication: 13:49 VIS not applicable for this client. ld1 Outcome: 12:33 Decision to Hospitalize by Provider. snw 15:31 Admitted to Tele accompanied by tech, via stretcher, room 221, with oxygen, with chart, ko1 Report called to EDY Beckford 15:31 Condition: stable 15:31 Instructed on the need for admit, 15:51 Patient left the ED. ko1 Signatures: Dispatcher [employer] EDMS Laxmi Laurent, COAL SCREENER-C COAL SCREENER-Csnw Nora Felix MD MD cp3 Garcia, Rubi rg4 Isela Rajput RN RN jl7 Garcia Holbrook DO DO ms3 Zoya Holbrook, EDY RN ld1 Evy Yanez RN RN ko1 Corrections: (The following items were deleted from the chart) 11:01 10:57 Chief complaint: Patient states: Shortness of breath and left leg swelling, hx of jl7 CHF jl7
--- NOTE | 2022-12-30 12:33 | EDPHYS ---
Physician Documentation [facility] Name: Fabiana Garcia Age: 67 yrs Sex: Female : 1955 Arrival Date: 12/30/2022 Time: 10:33 Bed 3 Private MD: ED Physician Garcia Holbrook HPI: 12/30 10:52 This 67 yrs old Female presents to ER via Unassigned with complaints of Shortness Of snw Breath. 10:52 The patient has shortness of breath at rest. Onset: The symptoms/episode began/occurred snw acutely. Duration: The symptoms are continuous, and are steadily getting worse. The patient's shortness of breath is aggravated by light activity. Associated signs and symptoms: Pertinent positives: right lower ext with redness. Severity of symptoms: At their worst the symptoms were moderate. The patient has experienced similar episodes in the past. The patient has not recently seen a physician, sees On line Doctor, Dr. Dobson. Supposed to see Dr. Delvalle but has not. hx CHF. Historical: - Allergies: 10:59 No Known Allergies; jl7 - Home Meds: 10:59 Lasix Oral [Active]; amlodipine oral [Active]; jl7 15:28 gabapentin 100 mg oral capsule every 8 hours [Active]; loratadine 10 mg oral ld1 Tablet,disintegrating daily [Active]; amlodipine 5 mg tablet daily [Active]; valacyclovir 500 mg Oral tablet daily [Active]; spironolactone 25 mg/5 mL Oral suspension daily [Active]; furosemide 40 mg Oral tablet daily [Active]; oxybutynin chloride 5 mg Oral Tablet, Extended Release 24 hr daily [Active]; fluticasone propion-salmeterol 250-50 mcg/dose inhalation Blister, With Inhalation Device once [Active]; trazodone 50 mg Oral tablet once [Active]; - PMHx: 10:59 Congestive heart failure; Hypertensive disorder; Pancreatitis; jl7 - PSHx: 10:59 section; Gastric Bypass; jl7 - Immunization history:: Adult Immunizations unknown. - Social history:: Smoking status: Patient denies any tobacco usage or history of. ROS: 10:52 Eyes: Negative for injury, pain, redness, and discharge, ENT: Negative for injury, snw pain, and discharge, Neck: Negative for injury, pain, and swelling, Cardiovascular: Negative for chest pain, palpitations, and edema, 10:52 Abdomen/GI: Negative for abdominal pain, nausea, vomiting, diarrhea, and constipation, Back: Negative for injury and pain, : Negative for injury, bleeding, discharge, and swelling, 10:52 Skin: Negative for injury, rash, and discoloration, Neuro: Negative for headache, weakness, numbness, tingling, and seizure, Psych: Negative for depression, anxiety, suicide ideation, homicidal ideation, and hallucinations, 10:52 Constitutional: Positive for body aches, malaise, 10:52 Respiratory: Positive for dyspnea on exertion, orthopnea, shortness of breath, 10:52 MS/extremity: Positive for erythema, pain, swelling, of the right leg, Exam: 10:54 Head/Face: Normocephalic, atraumatic. Eyes: Pupils equal round and reactive to light, snw extra-ocular motions intact. Lids and lashes normal. Conjunctiva and sclera are non-icteric and not injected. Cornea within normal limits. Periorbital areas with no swelling, redness, or edema. ENT: Nares patent. No nasal discharge, no septal abnormalities noted. Tympanic membranes are normal and external auditory canals are clear. Oropharynx with no redness, swelling, or masses, exudates, or evidence of obstruction, uvula midline. Mucous membranes moist. Neck: Trachea midline, no thyromegaly or masses palpated, and no cervical lymphadenopathy. Supple, full range of motion without nuchal rigidity, or vertebral point tenderness. No Meningismus. Chest/axilla: Normal chest wall appearance and motion. Nontender with no deformity. No lesions are appreciated. 10:54 Abdomen/GI: Soft, non-tender, with normal bowel sounds. No distension or tympany. No guarding or rebound. No evidence of tenderness throughout. Back: No spinal tenderness. No costovertebral tenderness. Full range of motion. Neuro: Awake and alert, GCS 15, oriented to person, place, time, and situation. Cranial nerves II-XII grossly intact. Motor strength 5/5 in all extremities. Sensory grossly intact. Cerebellar exam normal. Normal gait. 10:54 Constitutional: The patient appears awake, obese, pale, uncomfortable, 10:54 Cardiovascular: Rate: tachycardic, Heart sounds: normal, Edema: 3+ edema to level of left midcalf, left ankle, right midcalf and right ankle, 10:54 Respiratory: mild respiratory distress is noted, moderate respiratory distress is noted, Respirations: shallow respirations, that is moderate, Breath sounds: decreased breath sounds, are located in both bases, 10:54 Skin: Appearance: Color: pale, cellulitis, that is moderate, on the right dior and anterior aspect of right ankle, 10:54 Psych: Behavior/mood is pleasant, anxious, Affect is calm, flat, Patient has no thoughts/intents to harm self or others. Vital Signs: 10:57 BP 130 / 63; Pulse 107; Resp 21; Temp 98.5; Pulse Ox 89% on 2 lpm NC; Weight 165.56 kg jl7 (M); Pain 10/10; 10:58 BP 130 / 63; Pulse 105; Resp 18; Pulse Ox 100% on 3 lpm NC; ld1 11:07 BP 124 / 65; Pulse 103; Resp 18; Pulse Ox 100% on 3 lpm NC; ld1 11:30 BP 128 / 58; Pulse 101; Resp 18; Pulse Ox 99% on 2 lpm NC; ld1 12:30 BP 123 / 61; Pulse 92; Resp 18; Pulse Ox 100% on 2 lpm NC; ld1 13:10 BP 110 / 71; Pulse 93; Resp 18; Pulse Ox 100% on 2 lpm NC; ld1 13:49 BP 114 / 62; Pulse 95; Resp 21; Pulse Ox 97% on 2 lpm NC; ld1 10:57 Pain Scale: Adult jl7 MDM: 10:36 Patient medically screened. cp3 10:56 Differential diagnosis: Anemia CHF exacerbation, Chronic Obstructive Pulmonary Disease snw pulmonary edema, Sepsis. Data reviewed: vital signs, nurses notes, lab test result(s), radiologic studies. 11:57 I considered the following discharge prescriptions or medication management in the [facility] emergency department Medications were administered in the Emergency Department. See MAR. Care significantly affected by the following chronic conditions: Hypertension, Congestive Heart Failure. 12:00 Special discussion: no NS bolus as pt with CHF and SOB. Will give blood and more lasix. [facility] 13:32 Management of patient was discussed with the following: Hospitalist: Javier - [facility] inpatient to Dr. Miguel. 12/30 10:39 Order name: Blood Culture Adult (2) [facility] 12/30 10:39 Order name: CBC with Diff; Complete Time: 12:12 [facility] 12/30 10:39 Order name: CMP; Complete Time: 13:13 [facility] 12/30 10:39 Order name: Lactate w/ 2H reflex if indic.; Complete Time: 11:55 [facility] 12/30 10:39 Order name: Protime (+inr); Complete Time: 11:27 [facility] 12/30 10:39 Order name: Ptt, Activated; Complete Time: 11:27 [facility] 12/30 10:39 Order name: Urinalysis w/ reflexes; Complete Time: 11:31 [facility] 12/30 10:39 Order name: ABG; Complete Time: 11:55 [facility] 12/30 11:30 Order name: Urine Culture [facility] 12/30 11:51 Order name: CBC Smear Scan; Complete Time: 12:12 [facility] 12/30 12:02 Order name: TS [facility] 12/30 12:02 Order name: Add On-Lab [facility] 12/30 13:17 Order name: ABO/RH no charge; Complete Time: 13:25 [facility] 12/30 13:28 Order name: Packed RBC Leukored [facility] 12/30 14:39 Order name: Lactate w/ 2H reflex if indic. bd 12/30 15:50 Order name: Lactate Sepsis 2 HR Follow-up; Complete Time: 15:50 [facility] 12/30 10:39 Order name: Chest Single View XRAY; Complete Time: 11:44 [facility] 12/30 10:39 Order name: US Extremity Venous W Compression Manoj; Complete Time: 12:26 [facility] 12/30 11:57 Order name: ARTERIAL BLOOD GAS [facility] 12/30 10:39 Order name: EKG; Complete Time: 10:40 [facility] 12/30 10:39 Order name: Accucheck; Complete Time: 11:13 [facility] 12/30 10:39 Order name: Cardiac monitoring; Complete Time: 10:58 [facility] 12/30 10:39 Order name: EKG - Nurse/Tech; Complete Time: 10:58 [facility] 12/30 10:39 Order name: IV Saline Lock - Large Bore; Complete Time: 11:13 [facility] 12/30 10:39 Order name: Labs collected and sent; Complete Time: 11:13 snw 12/30 10:39 Order name: O2 Per Protocol; Complete Time: :58 snw 12/30 10:39 Order name: O2 Sat Monitoring; Complete Time: : snw 12/30 10:39 Order name: Vital Signs; Complete Time: 11:02 snw EC:00 Rate is 105 beats/min. Rhythm is regular. QRS [place] is Normal. IA interval is normal. snw QRS interval is normal. QT interval is normal. Clinical impression: Sinus tachycardia. Administered Medications: 12:48 Drug: Piperacillin-Tazobactam IVPB 3.375 grams IVPB once over 60 mins; (mix in NS 100 ld1 mL) Route: IVPB; Infused Over: 60 mins; Site: left antecubital; 13:01 Drug: Furosemide IVP 40 mg IVP once; give over 2 minutes Route: IVP; Site: left ld1 antecubital; 13:01 Drug: Aspirin PO 81 mg PO once Route: PO; ld1 15:00 Drug: fentaNYL (PF) IVP 12.5 mcg IVP once Route: IVP; Site: left antecubital; ld1 Disposition: 13:25 Critical Care:. snw 13:43 Co-signature as Attending Physician, Garcia Holbrook DO I reviewed the patient's care ms3 provided by Advanced Practice Provider \T\ agree w/ the diagnosis \T\ care plan. I personally saw the pt \T\ performed a substantive portion of the visit, incldng all aspects of the (History/Exam/Medical Decision Making). PA/CORPORATE LOGISTICS MANAGER's history reviewed, patient interviewed, and examined. HPI: 67-year-old female with past medical history of congestive heart failure, hypertension, pancreatitis presents for 3 weeks of worsening shortness of breath My personal exam of patient reveals: On exam patient is alert and oriented x4, no apparent distress, nontoxic-appearing. Heart rate and rhythm are regular without murmurs rubs or gallops. Lungs are clear to auscultation bilaterally. Abdomen is obese, nontender to palpation, bowel sounds present. Skin significant for right lower extremity cellulitis. Lower extremity significant for 3+ pedal edema bilaterally. I agree with assessment and care plan and confirm the diagnosis (es) above. Disposition Summary: 12/30/22 12:33 Hospitalization Ordered Notes: Hospitalization Status: Inpatient Admission snw Provider: Reinaldo Miguel snw Location: Telemetry/[facility] (Inpatient) snw Condition: Stable snw Problem: an acute exacerbation snw Symptoms: have improved snw Bed/Room Type: Standard snw Room Assignment: 221(12/30/22 14:32) bd Diagnosis - Severe sepsis without septic shock snw - Cellulitis of right lower limb snw - UTI/ Urinary tract infection, site not specified snw - Iron deficiency anemia, unspecified snw Forms: - Medication Reconciliation Form snw - SBAR form snw - Leadership Thank You Letter snw Critical care time excluding procedures: 13:25 Critical care time: Bedside Care: 10 minutes, Consultation: 10 minutes, Family snw Intervention: 10 minutes. Total time: 30 minutes Signatures: Dispatcher [employer] EDMS Giovana Valencia Shelly, AUTOMATIC DRILL OPERATOR-C AUTOMATIC DRILL OPERATOR-Csnw Nora Felix MD MD cp3 Isela Rajput RN RN jl7 Garcia Holbrook DO DO ms3 Zoya Holbrook, RN RN ld1 Corrections: (The following items were deleted from the chart) 13:44 12:47 I reviewed the patient's care provided by the Advanced Practice Provider and ms3 agree with the diagnosis and treatment plan. cp3 14:32 12:33 snw bd
[2022-12-30] MEDS ORDERED: PIPERACIL/TAZO 3.375 GM VIAL IV ONE (12:47)
[2022-12-30] MEDS ORDERED: NA CHLORIDE 0.9% 100 ML ONE (12:47)
[2022-12-30 13:10] LABS: Bilirubin Total 1.9 mg/dL (0.2-1.0); Protein, Total 6.7 g/dL (6.4-8.2)
[2022-12-30 13:11] LABS: Potassium 4.6 mEq/L (3.5-5.1)
--- NOTE | 2022-12-30 14:23 | P.HP ---
Certification for Inpatient Patient admitted to: Inpatient With expected LOS: >2 Midnights Patient will require the following post-hospital care: None Practitioner: I am a practitioner with admitting privileges, knowledge of patient current condition, hospital course, and medical plan of care. Services: Services provided to patient in accordance with Admission requirements found in Title 42 Section 412.3 of the Code of Federal Regulations Patient History Date of Service: 12/30/22 Reason for admission: SOB, RLE redness\swelling\pain History of Present Illness: Patient is a 67-year-old female with a past medical history significant for CHF, hypertension, morbid obesity, Insomnia who presents with complaint of shortness of breath and bilateral lower extremity swelling worse on the right side. Patient reported that she has been having worsening shortness of breath in the last 3 weeks. Patient also reports that she has been having lower extremity redness that has been going on for the past 1 week. Patient also reports right lower extremity pain rated as 9/10 in severity and described as aching in quality. Patient also reports dizziness whenever she gets up. Patient also reports right shoulder pain that has been ongoing since October 15, 2022. Patient denies any other signs and symptoms. Symptoms are aggravated or relieved by no thing. Patient decided to present to the hospital for medical evaluation. Allergies No Known Allergies Allergy (Verified 11/24/21 20:13) Home Medications: Amlodipine [Norvasc*] 5 mg PO DAILY #30 tab 11/25/21 Trazodone [Desyrel*] 100 mg PO BEDTIME #30 tab 11/25/21 Aspirin Chewable [Aspirin Chewable*] 81 mg PO DAILY tab.chew 05/31/22 Furosemide [Lasix] 40 mg PO BIDL #60 tab 05/31/22 Fluticasone Propion/Salmeterol [Wixela 250-50 Inhub] 1 each IH BID PRN 12/30/22 Gabapentin [Neurontin] 100 mg PO TID 12/30/22 Loratadine 10 mg PO DAILY 12/30/22 Oxybutynin Chloride [Oxybutynin Chloride ER] 5 mg PO DAILY 12/30/22 Spironolactone 25 mg PO DAILY 12/30/22 Valacyclovir [Valtrex*] 500 mg PO DAILY 12/30/22 - Past Medical/Surgical History Diabetic: No -: insomnia -: GERD -: arthritis -: HTN -: neuropathy -: bladder spasms -: Gastric Bipass 2010 -: Cholecystecomy 2011 -: x2 -: left breast tumor removal - Family History Father -: Heart disease, Hypertension, Diabetes Mother -: Heart disease, Hypertension, Diabetes - Social History Smoking Status: Never smoker Alcohol use: Yes CD- Drugs: No Caffeine use: Yes Place of Residence: Home Review of Systems General: Unremarkable Eyes: Unremarkable ENT: Unremarkable Respiratory: Shortness of Breath, SOB with Excertion Cardiovascular: Edema Gastrointestinal: Unremarkable Genitourinary: Unremarkable Musculoskeletal: Leg Pain, Pedal edema, Other (RLE pain ) Integumentary: Other (BLE redness) Neurological: Other (Dizziness) Lymphatics: Unremarkable Physical Examination - Physical Exam General: Alert, In no apparent distress, Oriented x3, Cooperative HEENT: Atraumatic, PERRLA, Mucous membr. moist/pink, EOMI, Sclerae nonicteric Neck: Supple, 2+ carotid pulse no bruit, No LAD, Without JVD or thyroid abnormality Respiratory: Diminished Cardiovascular: Regular rate/rhythm, Normal S1 S2, Edema Capillary refill: <2 Seconds Gastrointestinal: Normal bowel sounds, Non-distended, No tenderness Musculoskeletal: No clubbing, No tenderness Integumentary: No rashes, Tenderness/swelling, Erythema Neurological: Normal speech, Normal tone, Normal affect Lymphatics: No axilla or inguinal lymphadenopathy - Studies Laboratory Data (last 24 hrs) 12/30/22 12/30/22 12/30/22 11:05 11:05 11:05 WBC 12.90 H Hgb 7.5 L Hct 25.7 L Plt Count 146 L PT 16.4 H INR 1.49 APTT 27.7 Sodium 136 Potassium 4.6 BUN 29 H Creatinine 1.57 H Glucose 134 H Total Bilirubin 1.9 H AST 39 H ALT 32 Alkaline Phosphatase 137 H Assessment and Plan - Plan -- Sepsis POA. Continue antibiotics. Blood cultures pending. --Right lower extremity cellulitis. Doppler ultrasound negative for DVT. Continue antibiotics. Blood cultures pending. --Acute diastolic CHF exacerbation. Daily weight and strict I/O. Cardiology consulted. Continue diuresis with Lasix. We will await further recommendation from management development specialist. -- Anemia. Likely Iron deficiency anemia.. 1 units of PRBC ordered in ER. Iron studies pending. Continue supportive care. --UTI POA. Continue antibiotics. Urine cultures pending. --Hypertension. Poorly controlled. Continue home medications and labetalol prn --Osteoarthritis\Chronic back pain. We will manage pain with current pain medication regimen. --OAB. Continue Oxybutynin --Peripheral neuropathy. Continue gabapentin. --Insomnia. Continue home medication. --Super obesity. BMI greater than 50. Patient counseled on weight reduction, diet and exercise therapy. --SAÚL. Patient placed on CPAP every bedtime. --DVT prophylaxis with Lovenox subQ. Discharge Plan: Home Plan to discharge in: Greater than 2 days - Advance Directives Does patient have a Living Will: No Does patient have a Durable POA for Healthcare: No - Code Status/Comfort Care Code Status Assessed: Yes Physician Review: Patient Assessed, Agree with Above Assessment and Plan Critical Care: No
[2022-12-30] MEDS ORDERED: FENTANYL CITR 100 MCG/2 ML ONE (15:09)
[2022-12-30] MEDS ORDERED: HOME MED 1 EA UNK (Fluticasone Propion/Salmeterol [Wixela 250-50 Inhub] Blst.W.Dev) IH PRN (16:19)
[2022-12-30] MEDS ORDERED: LABETALOL 20 MG/4ML SYRINGE IV PRN (16:23)
[2022-12-30] MEDS: ENOXAPARIN 40 MG/0.4 ML SQ SCH (17:15)
[2022-12-30] MEDS: FUROSEMIDE 40 MG/4 ML VIAL IV SCH (17:15)
[2022-12-30] MEDS ORDERED: NA CHLORIDE 0.9% 250 ML ONE (17:58)
[2022-12-30 18:39] LABS: Ferritin 4.6 ng/mL (8-388); Magnesium 2.8 mg/dL (1.6-2.4); Phosphorus 3.3 mg/dL (2.5-4.9); Thyroid Stimulating Hormone 0.626 uIU/mL (0.358-3.740)
[2022-12-30] MEDS: GABAPENTIN 100 MG CAP PO SCH (20:19)
[2022-12-30] MEDS: TRAZODONE 50 MG TABLET PO SCH (20:19)
[2022-12-30] MEDS: PIPER TAZO 3.375 GM in NA CHLORIDE 0.9% 100 ML IV SCH (20:19)
[2022-12-30] MEDS: HYDROCODONE/APAP 10/325 TAB PO PRN (22:22)
[2022-12-31 03:14] LABS: Absolute Lymphocytes (CBC) 1.2 K/uL (0.7-4.9); Hematocrit 27.8 % (36.0-45.0); Lymphocytes % 11.3 % (15.3-44.8); MCV 73.4 fL (80-100); MPV 8.9 fL (7.6-11.3); Platelets 151 thou/uL (152-406); RBC Red Blood Cell Count 3.78 M/uL (3.86-4.86)
[2022-12-31 03:32] LABS: Potassium 3.8 mEq/L (3.5-5.1)
[2022-12-31] MEDS: HYDROCODONE/APAP 10/325 TAB PO PRN ×3 (04:15→20:23)
[2022-12-31] MEDS: PIPER TAZO 3.375 GM in NA CHLORIDE 0.9% 100 ML IV SCH ×3 (04:16→20:25)
[2022-12-31] MEDS: PANTOPRAZOLE 40MG TABLET PO SCH ×2 (08:58→16:55)
[2022-12-31] MEDS: SPIRONOLACTONE 25 MG TABLET PO SCH (09:00)
[2022-12-31] MEDS ORDERED: POTASSIUM CL SA 10 MEQ TAB PO ONE (09:00)
[2022-12-31] MEDS: ASPIRIN 81 MG CHEWABLE TABLET PO SCH (09:02)
[2022-12-31] MEDS: LORATADINE 10 MG TAB PO SCH (09:03)
[2022-12-31] MEDS: OXYBUTYNIN ER 5 MG TAB PO SCH (09:10)
[2022-12-31] MEDS: GABAPENTIN 100 MG CAP PO SCH ×3 (09:11→20:24)
[2022-12-31] MEDS: AMLODIPINE 5 MG TAB PO SCH (09:12)
[2022-12-31] MEDS: VALACYCLOVIR 500 MG TAB PO SCH (09:15)
[2022-12-31] MEDS: FUROSEMIDE 40 MG/4 ML VIAL IV SCH ×2 (09:18→16:56)
[2022-12-31] MEDS: ENOXAPARIN 40 MG/0.4 ML SQ SCH (09:25)
[2022-12-31] MEDS: ONDANSETRON 4 MG/2 ML VIAL IV PRN (14:02)
--- NOTE | 2022-12-31 17:05 | P.PN ---
Subjective Date of Service: 12/31/22 Chief Complaint: SOB, RLE redness\swelling\pain Patient reports improvement in her shortness of breath. She also reports having right leg erythema and swelling is improving. Physical Examination - Vital Signs Temperature: 97.6 F Blood Pressure: 84/54 Pulse: 93 Respirations: 18 Pulse Ox (%): 96 Assessment And Plan - Plan Physical Exam General: Alert, In no apparent distress, Oriented x3, Cooperative, morbidly obese HEENT: Sclerae nonicteric Neck: Supple, no JVD distention Respiratory: Diminished, mild bibasilar crackles Cardiovascular: Regular rate/rhythm, Normal S1 S2, 2+ bilateral leg edema Gastrointestinal: Normal bowel sounds, Non-distended, No tenderness Musculoskeletal: No clubbing, No tenderness Integumentary: Erythema-right leg Neurological: Normal speech, no focal motor deficit. Diagnosis Sepsis/right lower extremity cellulitis Patient meets criteria for sepsis with leukocytosis and tachycardia. Blood cultures: No growth to date. Urine culture; GNR Continue Zosyn for now. Follow cultures. Acute diastolic CHF exacerbation. Daily weight and strict I/O. Cardiology consulted. Continue diuresis with Lasix as her BP will tolerate. Iron deficiency anemia Status post 1 units of PRBC transfusion. Iron studies pending. Iron therapy once infection has been adequately treated. UTI Urine culture is growing gram-negative jazlyn Continue IV Zosyn. Follow urine culture. Hypertension Continue home medications and labetalol prn Peripheral neuropathy. Continue gabapentin. Morbid obesity/obstructive sleep apnea. BMI greater than 50. Weight loss by diet and exercise advised CPAP at night. DVT prophylaxis: Lovenox subQ.
--- NOTE | 2022-12-31 18:46 | CON ---
Date of Consultation: 12/31/2022 Reason For Consultation: CHF. History Of Present Illness: A 67-year-old female with past medical history of congestive heart failu re, hypertension, morbid obesity, presented to the emergency room with significant shortness of breat h, progressive lower extremity edema. No orthopnea, no chest pain, but she has pain in lower extremi ties from the edema. Denies having any nausea, vomiting, or diarrhea. Past Medical History: As outlined above in the HPI. Medications: Refer to reconciliation sheet for detailed list. Allergies: NO KNOWN DRUG ALLERGIES. Family History: No premature coronary artery disease or cancer. Social History: Does not smoke or drink. Does not use any drugs. Review of Systems: All systems reviewed and they were negative except what mentioned in HPI. Physical Examination: Vital Signs: Reviewed. Head and Neck: Pupils are equal, reactive to light. Intact eye movements. No cervical lymphadenopa thy. Neck is supple. Thyroid is not enlarged. Lungs: Rhonchi bilaterally. No accessory muscle use or muscle retraction. Heart: Irregular. No extra sounds. Abdomen: Soft, nontender. Bowel sounds positive. No organomegaly. No masses or hernia. No rigidi ty or rebound. Extremities: No clubbing or cyanosis. Intact pulses. Skin: No rash or nodules. Neurologic: Alert, awake, oriented x3. No acute focal deficits appreciated. Investigations: BUN 26, creatinine 1.42. Assessment And Recommendations: 1.Diastolic heart failure with edema of lower extremities. If the patient's blood pressure tolerate s, IV Lasix to be continued and also I would recommend to discontinue the amlodipine as it could be a significant part of her lower extremity edema. 2.Elevated NT-proBNP. Obtain an echocardiogram to further evaluate. 3.Cellulitis of lower extremities, on antibiotics. SR/MODL Voice ID: [id number] Report ID: [id number]
[2022-12-31] MEDS: TRAZODONE 50 MG TABLET PO SCH (20:24)
[2023-01-01 03:31] LABS: Absolute Lymphocytes (CBC) 1.4 K/uL (0.7-4.9); Hematocrit 27.3 % (36.0-45.0); MCV 73.4 fL (80-100); MPV 8.3 fL (7.6-11.3); Platelets 225 thou/uL (152-406); RBC Red Blood Cell Count 3.72 M/uL (3.86-4.86)
[2023-01-01 03:37] LABS: Potassium 4.1 mEq/L (3.5-5.1)
[2023-01-01] MEDS: PIPER TAZO 3.375 GM in NA CHLORIDE 0.9% 100 ML IV SCH ×2 (05:00→12:08)
[2023-01-01] MEDS: ONDANSETRON 4 MG/2 ML VIAL IV PRN ×2 (05:41→17:22)
[2023-01-01] MEDS: OXYBUTYNIN ER 5 MG TAB PO SCH (09:19)
[2023-01-01] MEDS: GABAPENTIN 100 MG CAP PO SCH ×3 (09:20→20:30)
[2023-01-01] MEDS: SPIRONOLACTONE 25 MG TABLET PO SCH (09:20)
[2023-01-01] MEDS: ASPIRIN 81 MG CHEWABLE TABLET PO SCH (09:20)
[2023-01-01] MEDS: PANTOPRAZOLE 40MG TABLET PO SCH ×2 (09:20→16:22)
[2023-01-01] MEDS: VALACYCLOVIR 500 MG TAB PO SCH (09:20)
[2023-01-01] MEDS: ENOXAPARIN 40 MG/0.4 ML SQ SCH (09:21)
[2023-01-01] MEDS: LORATADINE 10 MG TAB PO SCH (09:21)
[2023-01-01] MEDS: AMLODIPINE 5 MG TAB PO SCH (09:21)
[2023-01-01] MEDS: FUROSEMIDE 40 MG/4 ML VIAL IV SCH ×2 (09:21→16:23)
[2023-01-01] MEDS: HYDROCODONE/APAP 10/325 TAB PO PRN ×2 (09:37→20:30)
--- NOTE | 2023-01-01 14:31 | ECHO ---
HEIGHT: 5 ft 5 in WEIGHT: 365 lb 0 oz DATE OF STUDY: 01/01/[address]: Benjamin Zhao MD 2-DIMENSIONAL: YES M.MODE: YES DOPPLER: YES COLOR FLOW: YES TDS: YES PORTABLE: YES DEFINITY: BUBBLE STUDY: DIAGNOSIS: SHORTNESS OF BREATH CARDIAC HISTORY: CATHERIZATION: SURGERY: PROSTHETIC VALVE: PACEMAKER: MEASUREMENTS (cm) DIASTOLIC (NORMALS) SYSTOLIC (NORMALS) IVSd 0.9 (0.6-1.2) LA Diam 3.1 (1.9-4.0) LVEF 63% LVIDd 2.8 (3.5-5.7) LVIDs 1.9 (2.0-3.5) %FS 33% LVPWd 0.9 (0.6-1.2) Ao Diam 2.3 (2.0-3.7) 2 DIMENSIONAL ASSESSMENT: RIGHT ATRIUM: ENLARGED LEFT ATRIUM: NORMAL RIGHT VENTRICLE: SEVERELY DILATED LEFT VENTRICLE: NORMAL TRICUSPID VALVE: SEVERE TRICUSPID REGURGITATION MITRAL VALVE: NORMAL PULMONIC VALVE: NOT SEEN AORTIC VALVE: NORMAL PERICARDIAL EFFUSION: NONE AORTIC ROOT: NORMAL LEFT VENTRICULAR WALL MOTION: NORMAL DOPPLER/COLOR FLOW: SEE BELOW COMMENTS: 1. VERY POOR WINDOWS 2. LEFT VENRTRICULAR EJECTION FRACTION IS NORMAL 60-65% 3. SEVERELY DILATED RIGHT VENTRICLE WITH MILD DYSFUNCTION 4. SEVERE TRICUSPID REGURGITATION 5. RIGHT ATRIAL ENLARGEMENT 6. SEVERE PULMONARY HYPERTENSION GREATER THAN 60 mmHg TECHNOLOGIST: EFRAIN VELOZ/ OSBALDO CATALAN
--- NOTE | 2023-01-01 14:42 | EKG ---
Test Date: 2022-12-30 Test Time: 10:56:34 Guard Immigration: JORDAN MEASUREMENT RESULTS: Intervals: Rate: 105 MD: 152 QRSD: 82 QT: 358 QTc: 473 [place]: P: 74 MD: 152 QRS: 80 T: 28 INTERPRETIVE STATEMENTS: Sinus tachycardia with premature supraventricular complexes Otherwise normal ECG Compared to ECG 05/27/2022 06:47:01 Atrial premature complex(es) now present Sinus rhythm no longer present Electronically Signed On 01-01-23 14:34:18 CDT by Chester Valenzuela
[2023-01-01] MEDS: TRAZODONE 50 MG TABLET PO SCH (20:30)
[2023-01-01] MEDS: methocarbamoL 500 MG TAB PO PRN (22:11)
[2023-01-02] MEDS: VALACYCLOVIR 500 MG TAB PO SCH (07:46)
[2023-01-02] MEDS: OXYBUTYNIN ER 5 MG TAB PO SCH (07:46)
[2023-01-02] MEDS: levoFLOXacin 750 MG TAB PO SCH (07:46)
[2023-01-02] MEDS: HYDROCODONE/APAP 10/325 TAB PO PRN ×2 (07:47→15:32)
[2023-01-02] MEDS: FUROSEMIDE 40 MG/4 ML VIAL IV SCH (07:47)
[2023-01-02] MEDS: GABAPENTIN 100 MG CAP PO SCH ×3 (07:47→20:38)
[2023-01-02] MEDS: ENOXAPARIN 40 MG/0.4 ML SQ SCH (07:47)
[2023-01-02] MEDS: PANTOPRAZOLE 40MG TABLET PO SCH ×2 (07:47→16:12)
[2023-01-02] MEDS: SPIRONOLACTONE 25 MG TABLET PO SCH (07:47)
[2023-01-02] MEDS: LORATADINE 10 MG TAB PO SCH (07:47)
[2023-01-02] MEDS: ASPIRIN 81 MG CHEWABLE TABLET PO SCH (07:47)
[2023-01-02 09:14] LABS: Arterial Blood Carboxyhemoglob 3.3 % (0-1.5); Blood Gas Oxyhemoglobin 90.7 % (94-97); Blood O2 Saturation 95.2 % (92-98.5)
[2023-01-02 10:34] LABS: Potassium 4.7 mEq/L (3.5-5.1)
[2023-01-02 14:07] VITALS: BMI 60.7
--- NOTE | 2023-01-02 16:03 | P.PN ---
Subjective Date of Service: 01/02/23 Chief Complaint: SOB, RLE redness\swelling\pain Patient is more awake and interactive today. Her leg edema and erythema have significantly improved. She is tolerating diet. She used BiPAP last night. Physical Examination - Vital Signs Temperature: 97.2 F Blood Pressure: 101/64 Pulse: 88 Respirations: 15 Pulse Ox (%): 94 Assessment And Plan - Plan Physical Exam General: Alert, In no apparent distress, Oriented x3, Cooperative, morbidly obese Neck: Supple, no JVD distention Respiratory: Diminished, mild bibasilar crackles Cardiovascular: Regular rate/rhythm, Normal S1 S2, 2+ bilateral leg edema Gastrointestinal: Normal bowel sounds, Non-distended, No tenderness Musculoskeletal: No clubbing, No tenderness Integumentary: Right leg erythema improved Neurological: Normal speech, no focal motor deficit. Diagnosis Sepsis/right lower extremity cellulitis Patient meets criteria for sepsis with leukocytosis and tachycardia. Blood cultures: No growth to date. Urine culture; GNR Suspect right lower extremity redness secondary to venous stasis dermatitis as compared to cellulitis Transition to oral antibiotics Acute diastolic CHF exacerbation. Daily weight and strict I/O. Cardiology seen patient. Hold diuresis due to increasing creatinine. Iron deficiency anemia Status post 1 units of PRBC transfusion. Iron therapy once infection has been adequately treated. UTI Urine culture is growing pansensitive Klebsiella. Transition to oral Cipro. Hypertension Continue home medications and labetalol prn Peripheral neuropathy. Continue gabapentin. Obesity hypoventilation/obstructive sleep apnea/impaired mobility BMI greater than 50. Weight loss by diet and exercise advised CPAP at night. Patient is needing total assist with bed mobility and transfers. Recommend skilled rehab placement. DVT prophylaxis: Lovenox subQ.
[2023-01-02] MEDS: TRAZODONE 50 MG TABLET PO SCH (20:37)
[2023-01-02] MEDS: methocarbamoL 500 MG TAB PO PRN (20:38)
[2023-01-03 08:54] LABS: Absolute Lymphocytes (CBC) 1.4 K/uL (0.7-4.9); Hematocrit 29.3 % (36.0-45.0); MCV 74.7 fL (80-100); Platelets 357 thou/uL (152-406); RBC Red Blood Cell Count 3.93 M/uL (3.86-4.86)
[2023-01-03] MEDS: OXYBUTYNIN ER 5 MG TAB PO SCH (09:00)
[2023-01-03] MEDS: SPIRONOLACTONE 25 MG TABLET PO SCH (09:00)
[2023-01-03 09:05] LABS: Potassium 5.4 mEq/L (3.5-5.1)
[2023-01-03 09:27] LABS: Anisocytosis 3+; Blood Morphology Comment NOTED (NOT SEEN); Platelet Estimate ADEQ; Polychromasia 2+; White Blood Cell Scan OK (OK)
[2023-01-03] MEDS: ASPIRIN 81 MG CHEWABLE TABLET PO SCH (09:32)
[2023-01-03] MEDS: GABAPENTIN 100 MG CAP PO SCH ×3 (09:33→21:13)
[2023-01-03] MEDS: VALACYCLOVIR 500 MG TAB PO SCH (09:33)
[2023-01-03] MEDS: SOD FERRIC GLUC COMPLX/SUCROSE 125 MG in NA CHLORIDE 0.9% 100 ML IV SCH (09:33)
[2023-01-03] MEDS: LORATADINE 10 MG TAB PO SCH (09:33)
[2023-01-03] MEDS: PANTOPRAZOLE 40MG TABLET PO SCH ×2 (09:33→15:45)
[2023-01-03] MEDS: ENOXAPARIN 40 MG/0.4 ML SQ SCH (09:34)
[2023-01-03] MEDS: ARFORMOTEROL TARTRATE 15 MCG/2 ML VIAL.NEB NEB SCH ×2 (11:23→21:00)
--- NOTE | 2023-01-03 11:23 | P.CNS ---
Date of Consult: 01/03/23 Reason for Consult: Severe pulmonary hypertension Chief Complaint: SOB, RLE redness\swelling\pain History of Present Illness: Patient is 67 years of age morbidly obese history of sleep apnea noncompliant admitted with lower extremity edema and redness most likely cellulitis of the right leg patient patient was also complaining of shortness of breath worsened over the past 5 months noticed with severe pulmonary hypertension with right ventricular dilatation and was unable to do any outpatient testing including PFTs eyes any fever or chills has never smoked Allergies No Known Allergies Allergy (Verified 11/24/21 20:13) Home Medications: Amlodipine [Norvasc*] 5 mg PO DAILY #30 tab 11/25/21 Trazodone [Desyrel*] 100 mg PO BEDTIME #30 tab 11/25/21 Aspirin Chewable [Aspirin Chewable*] 81 mg PO DAILY tab.chew 05/31/22 Furosemide [Lasix] 40 mg PO BIDL #60 tab 05/31/22 Fluticasone Propion/Salmeterol [Wixela 250-50 Inhub] 1 each IH BID PRN 12/30/22 Gabapentin [Neurontin] 100 mg PO TID 12/30/22 Loratadine 10 mg PO DAILY 12/30/22 Oxybutynin Chloride [Oxybutynin Chloride ER] 5 mg PO DAILY 12/30/22 Spironolactone 25 mg PO DAILY 12/30/22 Valacyclovir [Valtrex*] 500 mg PO DAILY 12/30/22 methocarbamoL [Methocarbamol] 500 mg PO Q8H PRN 12/31/22 - Past Medical/Surgical History Diabetic: No -: insomnia -: GERD -: arthritis -: HTN -: neuropathy -: bladder spasms -: right arm weakness -: Gastric Bipass 2010 -: Cholecystecomy 2010 -: x2 -: left breast tumor removal - Family History Father Medical History: Heart disease, Hypertension, Diabetes Mother Medical History: Heart disease, Hypertension, Diabetes - Social History Smoking Status: Unknown if ever smoked Alcohol use: Yes CD- Drugs: No Caffeine use: Yes Place of Residence: Home Review of Systems General: Weakness Respiratory: Shortness of Breath Cardiovascular: Edema Physical Examination Temp Pulse Resp BP Pulse Ox 97.4 F 89 20 95/56 L 92 01/03/23 08:00 01/03/23 08:00 01/03/23 08:00 01/03/23 08:00 01/03/23 08:00 General: Alert, Oriented x3 Respiratory: Clear to auscultation bilaterally, Diminished Cardiovascular: Normal S1 S2, Edema (Severe lower extremity edema with some redness in the right leg) Gastrointestinal: Normal bowel sounds, Soft and benign Musculoskeletal: No clubbing - Problems (1) Pulmonary hypertension Current Visit: Yes Status: Acute Plan: 67 years of age morbidly obese history of sleep apnea admitted with worsening dyspnea right leg cellulitis she probably has cor pulmonale right ventricular dilatation severe pulmonary hypertension patient unable to do a CT pulmonary angiogram or VQ scan extremity Dopplers have been negative recommend empiric anticoagulation and will be unable to verify thromboembolism as a cause of her pulmonary hypertension high risk for thromboembolic disease so started on sildenafil 10 mg 3 times a day renal function is also worsened DC spironolactone so add bronchodilators patient has a mild microcytic anemia high risk for obstructive airways disease we will also add a bronchodilator (2) Acute on chronic renal failure Current Visit: Yes Status: Acute Plan: DC spironolactone for now ultrasound of the kidneys nephrology has been consulted
[2023-01-03] MEDS: APIXABAN 5 MG TABLET PO SCH ×2 (11:37→21:13)
--- NOTE | 2023-01-03 13:11 | P.CNS ---
Date of Consult: 01/03/23 Reason for Consult: WILBERTO, salt overload Requesting Physician: kim gomes Chief Complaint: SOB, RLE redness\swelling\pain History of Present Illness: 67F w/ PMHx of hypertension, morbid obesity, & severe pulmonary hypertension, who presents with a 3 week hx of progressive dyspnea and bilateral lower extremity edema. she also reports having erythema and pain on the right leg. She is admitted for acute respiratory failure secondary to acute on chronic right-sided CHF. She is receiving antibiotics for right lower extreme is cellulitis. She is referred to nephrology for WILBERTO. Serum creatinine is 1.6 on admission and increased to 3.5 today. Her baseline serum creatinine 0.8-1.0 as of 10/17/2022. Urinalysis showed pyuria but no proteinuria and no hematuria. She has mild proteinuria of 0.8 g on random UPCR. She has hyperkalemia. Urine chemistry shows secondary hyperaldosteronism. She has had hypotensive episodes. Her BNP is significantly elevated. She is on Revatio for her pulmonary hypertension. She has severe anemia and is receiving IV iron. Allergies No Known Allergies Allergy (Verified 11/24/21 20:13) Home Medications: Amlodipine [Norvasc*] 5 mg PO DAILY #30 tab 11/25/21 Trazodone [Desyrel*] 100 mg PO BEDTIME #30 tab 11/25/21 Aspirin Chewable [Aspirin Chewable*] 81 mg PO DAILY tab.chew 05/31/22 Furosemide [Lasix] 40 mg PO BIDL #60 tab 05/31/22 Fluticasone Propion/Salmeterol [Wixela 250-50 Inhub] 1 each IH BID PRN 12/30/22 Gabapentin [Neurontin] 100 mg PO TID 12/30/22 Loratadine 10 mg PO DAILY 12/30/22 Oxybutynin Chloride [Oxybutynin Chloride ER] 5 mg PO DAILY 12/30/22 Spironolactone 25 mg PO DAILY 12/30/22 Valacyclovir [Valtrex*] 500 mg PO DAILY 12/30/22 methocarbamoL [Methocarbamol] 500 mg PO Q8H PRN 12/31/22 - Past Medical/Surgical History Diabetic: No -: insomnia -: GERD -: arthritis -: HTN -: neuropathy -: bladder spasms -: right arm weakness -: Gastric Bipass 2011 -: Cholecystecomy 2011 -: x2 -: left breast tumor removal - Family History Father Medical History: Heart disease, Hypertension, Diabetes Mother Medical History: Heart disease, Hypertension, Diabetes - Social History Smoking Status: Unknown if ever smoked Alcohol use: Yes CD- Drugs: No Caffeine use: Yes Place of Residence: Home Review of Systems General: Weakness Eyes: Unremarkable ENT: Unremarkable Respiratory: Shortness of Breath, SOB with Excertion Cardiovascular: Edema Gastrointestinal: Unremarkable Genitourinary: Unremarkable Musculoskeletal: Leg Pain, Pedal edema Neurological: Unremarkable Lymphatics: Unremarkable Physical Examination Temp Pulse Resp BP Pulse Ox 97.4 F 119 H 16 98/55 L 93 01/03/23 12:00 01/03/23 12:00 01/03/23 12:00 01/03/23 12:00 01/03/23 12:00 General: Other (appears as her stated age) HEENT: Atraumatic, Normocephalic Neck: Supple Respiratory: Other (symmetric chest expansion) Cardiovascular: No rubs, No murmurs Gastrointestinal: Soft and benign, No rebound, No guarding Musculoskeletal: Swelling (both lower extremities), Erythema (right leg) Integumentary: Erythema (right leg) Neurological: Normal speech, Normal tone Urinary: Other (no bladder distention) External genitalia: Deferred Rectal: Deferred Conclusions/Impression: # WILBERTO 2/2 CRS1 from acute on chronic R-sided HF +/- sepsis from UTI vs R leg cellulitis Serum creatinine is 1.6 on admission, increased to 3.5 today Baseline serum creatinine 0.8-1.0 as of 10/17/2022 Urinalysis showed pyuria but no proteinuria and no hematuria Has mild proteinuria of 0.8 g on random UPCR CPK normal, no rhabdo Renal ultrasound unremarkable Start midodrine 10 g by mouth every 8 hours, titrate to map goal greater than 70 mmHg Lasix IV twice a day as below [place] by mouth fluid intake, unless serum sodium drops below 130 meq/L # Acute on chronic right-sided HF / severe pulmonary hypertension TTE in December 2022 showed normal EF at 63%, right atrial enlargement, right ventricle severely dilated, severe tricuspid regurgitation, severe pulmonary hypertension w/ RVSP more than [address] in May 2022 showed pulmonary hypertension Hx of OHS/SAÚL BNP sig elevated On Revatio Resume Lasix at 80 mg IV twice a day 4 doses and reassess dosing Start dimitrios + Lokelma as below [place] by mouth fluid intake to avoid further WILBERTO on diuretics. Restrict by mouth fluid intake only at times when the serum sodium is less than 130 meq per liter. 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 Give Lokelma 10 g by mouth twice a day 4 doses, then may continue at 10 g by mouth daily if still needed, to avoid hyperkalemia from [place]. Lokelma is not a good option as a K lowering agent due to very high sodium content. If she needs a K lowering agent on an ongoing basis, will need to be on Veltassa 8.4 g by mouth daily or higher dose if needed. Veltassa has no sodium. # Hypotension secondary to acute on chronic right-sided HF / severe pulmonary hypertension Hx of Htn Lasix, Dimitrios, midodrine, liberal by mouth fluid intake as above # Hyponatremia secondary to high ADH state from RLE pain & cardiopulmonary issues w/ hypotension + low solute intake Serum Na 130 Urine chemistry showing secondary hyperaldosteronism and likely with underlying high ADH state IV Lasix as above Encourage by mouth solid food intake Midodrine as above Tylenol, or tramadol when necessary for pain If serum sodium drops further, give tolvaptan Avoid sodium containing IV fluid or salt tabs as she is already very salt overloaded # Hyperkalemia Lokelma as above # Klebsiella UTI On antibiotics # R leg cellulitis +/- sepsis F/u BCx On antibiotics # Severe iron deficiency anemia Receiving IV iron Dose Retacrit 10,000 units subcu on 01/04 # Peripheral neuropathy Gabapentin
--- NOTE | 2023-01-03 13:17 | RAD REPORT ---
EXAM DESCRIPTION: US - Renal Ultrasound-Complete - 01/03/2023 1:00 pm CLINICAL HISTORY: Acute on chronic renal failure COMPARISON: None FINDINGS: The right kidney measures 8 cm with a normal echotexture. Mild right renal cortical thinni ng The left kidney measures 8 cm with a normal echotexture. Hydronephrosis is not seen. The bladder is decompressed poorly evaluated IMPRESSION: No acute abnormality is displayed No hydronephrosis
[2023-01-03] MEDS: SILDENAFIL CITRATE 20 MG TABLET PO SCH ×2 (14:00→21:13)
[2023-01-03] MEDS ORDERED: SODIUM ZIRCONIUM CYCLOSILICATE 10 GM/PKT PO ONE (14:00)
--- NOTE | 2023-01-03 16:01 | P.PN ---
Subjective Date of Service: 01/03/23 Chief Complaint: SOB, RLE redness\swelling\pain No major changes from yesterday. Generally weak No further improvement in her lower extremities edema She is tolerating diet. Serum creatinine continues to trend up. She used BiPAP last night. Physical Examination - Vital Signs Temperature: 97.4 F Blood Pressure: 98/55 Pulse: 119 Respirations: 16 Pulse Ox (%): 93 Assessment And Plan - Plan Physical Exam General: Alert, In no apparent distress, Oriented x3, Cooperative, morbidly obese Neck: Supple, no JVD distention Respiratory: Diminished, mild bibasilar crackles Cardiovascular: Regular rate/rhythm, Normal S1 S2, 2+ bilateral leg edema Gastrointestinal: Normal bowel sounds, Non-distended, No tenderness Musculoskeletal: No clubbing, No tenderness Integumentary: Right leg erythema improved Neurological: Normal speech, no focal motor deficit. Diagnosis Sepsis/right lower extremity cellulitis Patient met criteria for sepsis with leukocytosis and tachycardia. Blood cultures: No growth to date. Urine culture; pansensitive Klebsiella. Suspect right lower extremity redness secondary to venous stasis dermatitis as compared to cellulitis Continue oral antibiotics Acute diastolic CHF exacerbation. Daily weight and strict I/O. Cardiology seen patient. Hold diuresis due to rising creatinine. Iron deficiency anemia Status post 1 units of PRBC transfusion. IV Iron therapy UTI Urine culture is growing pansensitive Klebsiella. Patient completed at least 3 days of IV antibiotics Continue oral Cipro. Acute renal failure/hyperkalemia Lasix is on hold. Nephrology consulted, patient seen by Dr. Castelan. [place] for hyperkalemia Continue to monitor renal function for improvement. Hypertension Continue home medications and labetalol prn Peripheral neuropathy. Continue gabapentin. Obesity hypoventilation/obstructive sleep apnea/impaired mobility/severe pulmonary hypertension BMI greater than 50. Continue BiPAP at night. Pulmonary Dr. Dobson consulted to evaluate. Lower extremity venous duplex negative for DVT, VQ scan was ordered but I was told by the hydraulic technician patient cannot fit the machine and therefore cannot be done. General consensus is to start anticoagulation. Patient started on Eliquis. Dr. Pinzon also started sildenafil for pulmonary hypertension. Compliance to BiPAP reemphasized. Cardiology input appreciated. Patient is needing total assist with bed mobility and transfers. Patient is slated for skilled rehab placement and they are preferring [facility] bed if SNF is necessary. Social service is assisting with disposition. Patient's updated on plan of care. DVT prophylaxis: Renée.
[2023-01-03] MEDS: methocarbamoL 500 MG TAB PO PRN (21:13)
[2023-01-03] MEDS: TRAZODONE 50 MG TABLET PO SCH (21:14)
[2023-01-04 01:38] LABS: UR SODIUM < 5 mmol/L (27-287)
[2023-01-04 01:40] LABS: UR PROTEIN 124.1 mg/dL (<11.9); Urine Protein/Creatinine Ratio 0.81 ratio (<0.15)
[2023-01-04 03:31] LABS: Absolute Lymphocytes (CBC) 1.3 K/uL (0.7-4.9); Hematocrit 26.9 % (36.0-45.0); Lymphocytes % 12.2 % (15.3-44.8); MCV 73.7 fL (80-100); MPV 8.1 fL (7.6-11.3); Platelets 359 thou/uL (152-406); RBC Red Blood Cell Count 3.65 M/uL (3.86-4.86)
[2023-01-04 03:59] LABS: Albumin 2.6 g/dL (3.4-5.0); Phosphorus 6.8 mg/dL (2.5-4.9); Potassium 4.8 mEq/L (3.5-5.1)
[2023-01-04] MEDS: ARFORMOTEROL TARTRATE 15 MCG/2 ML VIAL.NEB NEB SCH ×2 (08:16→20:25)
[2023-01-04] MEDS: PANTOPRAZOLE 40MG TABLET PO SCH ×2 (08:27→15:37)
[2023-01-04] MEDS: GABAPENTIN 100 MG CAP PO SCH ×2 (09:00→20:56)
[2023-01-04] MEDS ORDERED: SODIUM ZIRCONIUM CYCLOSILICATE 10 GM/PKT PO SCH (09:00)
[2023-01-04] MEDS: OXYBUTYNIN ER 5 MG TAB PO SCH (09:23)
[2023-01-04] MEDS: LORATADINE 10 MG TAB PO SCH (09:23)
[2023-01-04] MEDS: ASPIRIN 81 MG CHEWABLE TABLET PO SCH (09:23)
[2023-01-04] MEDS: APIXABAN 5 MG TABLET PO SCH ×2 (09:23→20:56)
[2023-01-04] MEDS: SPIRONOLACTONE 25 MG TABLET PO SCH ×2 (09:23→20:56)
[2023-01-04] MEDS: FUROSEMIDE 40 MG/4 ML VIAL IV SCH ×2 (09:29→16:12)
[2023-01-04] MEDS ORDERED: TOLVAPTAN 15 MG TABLET PO ONE (09:30)
[2023-01-04] MEDS: levoFLOXacin 750 MG TAB PO SCH (09:34)
[2023-01-04] MEDS: MIDODRINE HCL 5 MG TABLET PO SCH ×2 (09:57→16:13)
[2023-01-04] MEDS: VALACYCLOVIR 500 MG TAB PO SCH (09:57)
[2023-01-04] MEDS: SILDENAFIL CITRATE 20 MG TABLET PO SCH ×3 (09:57→20:56)
[2023-01-04] MEDS: SOD FERRIC GLUC COMPLX/SUCROSE 125 MG in NA CHLORIDE 0.9% 100 ML IV SCH (10:00)
--- NOTE | 2023-01-04 10:29 | P.PN ---
Subjective Date of Service: 01/04/23 Chief Complaint: Pulmonary hypertension cor pulmonale renal failure No change patient's condition is stable however renal function is worse seen by nephrology on spironolactone and Lasix tolerating sildenafil Review of Systems General: Weakness Respiratory: Shortness of Breath Physical Examination - Vital Signs Temperature: 96.9 F Blood Pressure: 110/55 Pulse: 89 Respirations: 15 Pulse Ox (%): 96 - Physical Exam General: Alert, Oriented x3, Mild distress Respiratory: Clear to auscultation bilaterally Cardiovascular: Normal S1 S2, Abnormal S3, Edema Assessment And Plan - Current Problems (Diagnosis) (1) Pulmonary hypertension Current Visit: Yes Status: Acute Plan: Patient is 67 years of age with severe pulmonary hypertension tolerating sildenafil continue with present dose patient has cor pulmonale and is on spironolactone and Lasix renal function is worse Klebsiella pneumonia isolated in the urine DC levofloxacin possible nephrotoxicity changed to cefazolin has good gram-positive coverage in the urinary tract infection is sensitive (2) Acute on chronic renal failure Current Visit: Yes Status: Acute Plan: DC spironolactone for now ultrasound of the kidneys nephrology has been consulted Physician Review: Patient Assessed, Agree with Above Assessment and Plan
[2023-01-04] MEDS: EPOETIN ALFA-EPBX 10,000 UNIT/ML VIAL SQ SCH (12:00)
--- NOTE | 2023-01-04 12:02 | RAD REPORT ---
EXAM DESCRIPTION: RAD - Chest Single View - 01/04/2023 11:43 am CLINICAL HISTORY: COPD Chest pain. COMPARISON: <Comparisons> FINDINGS: Portable technique limits examination quality. Mild to moderate pulmonary edema. The heart is moderately enlarged. No displaced fractures. IMPRESSION: Mild to moderate CHF versus volume overload pattern.
--- NOTE | 2023-01-04 12:51 | PN ---
Date of Progress Note: 01/04/2023 Subjective: Patient was admitted with the respiratory failure, pulmonary hypertension. Patient had worsening kidney function while in the hospitalization. Patient had some cellulitis and itching. Justino díaz was started on aggressive diuresis. Kidney function continued to worsen. Patient started bein g oliguric. Objective: Vital Signs: Blood pressure 110/55, pulse of 89, afebrile. Patient had urine output of 400. Chest: Decreased entry bilateral, crackles bilateral. Heart: S1, S2. Systolic murmur. Abdomen: Morbidly obese. Could not appreciate any organomegaly. Extremities: +3 edema. Neurologic: Alert. No focality. Laboratory Data: Hemoglobin 8.2, sodium 128, potassium 4.8, bicarb 23, BUN 72, creatinine 3.6, GFR o f 13, calcium 8.3, phosphorus 6.8, albumin 2.6, corrected calcium is 9.5. Current Medications: The patient on, it includes valacyclovir, cefazolin, loratadine, aspirin, midod rine, IV iron, Epogen, Eliquis, spironolactone 50 b.i.d., gabapentin, Lasix 80 b.i.d., tolvaptan, Selvin ashley, pantoprazole, Zofran, Florinef, oxybutynin. Imaging: Renal ultrasound; 8.04/21 small sized kidney. No hydronephrosis. Assessment And Plan: 1.Acute kidney injury, possible secondary pulmonary renal/AIN supported with the peripheral eosinoph jorge and the itching, overvolume with respiratory distress, oliguric. I had long discussion with the patient in the presence of the of the need to initiate renal replacement therapy. Family an d patient on agreement. We will go ahead and consult Surgery for hemodialysis catheter. Then, we wi ll start the patient on dialysis. 2.I am going to send for full serology workup for pulmonary, renal. 3.I am going to send for urine eosinophil and we will follow up the patient closely. 4.Iron-deficiency anemia. Continue IV iron. 5.Pulmonary hypertension. I had long discussion with Dr. Dobson, Pulmonary, about the case, agree d on the plan. We will go ahead and do dialysis, then plan to do CT with contrast to evaluate for em bolic pulmonary process and we will follow up. We already sent for serology. 6.Cellulitis. Continue current antibiotic. Agree with switching to ceftriaxone given the possibili ty of AIN. 7.Anasarca secondary to pulmonary hypertension. Hypothyroidism has been ruled out. No significant proteinuria. We will try to establish better volume control. 8.Hyperkalemia, going to be corrected with the dialysis. I am going to discontinue Lokelma. We manuela l follow up. 9.Pulmonary hypertension. We will follow up with pulmonary. We will continue spironolactone for e time being. 10.Hyponatremia, dilutional. Will be corrected with the dialysis. Continue diuresis. Time spent examining the patient [id number], reviewing data, lab and radiology, placing order, disc ussing the case with the housekeeping and laundry team leader including retail wireless sales consultant and hospitalist more than 35 minutes. LISBETH Voice ID: [id number] Report ID: [id number]
--- NOTE | 2023-01-04 14:00 | P.OP ---
Preoperative diagnosis: Need for Urgent Hemodialysis Postoperative diagnosis: Need for Urgent Hemodialysis Primary procedure: Placement of LEFT Femoral Temporary Hemodialysis Catheter Secondary procedure: Ultrasound guidance, micro-introducer set utilized Anesthesia: 1% Lidocaine Estimated blood loss: 20cc Specimen: None Findings: Dark, non-pulsatile blood returned Complications: None Implants: Mahauker non-tunnelled Hemodialysis catheter Transferred to: Other (Floor Bed) Condition: Good
[2023-01-04] MEDS: HYDROCODONE/APAP 10/325 TAB PO PRN (15:35)
--- NOTE | 2023-01-04 15:36 | OP ---
Date of Procedure: 01/04/2023 Surgeon: Norman Alonzo MD, Preoperative Diagnosis: Need for urgent hemodialysis. Postoperative Diagnosis: Need for urgent hemodialysis. Procedure Performed: Placement of left femoral temporary hemodialysis catheter using ultrasound guid ance and microintroducer set utilized. Anesthesia: 1% lidocaine. Estimated Blood Loss: 20 cc. Specimen: None. Findings: Dark nonpulsatile blood was returned. Complications: None. Implants: Mahurkar non-tunneled hemodialysis catheter. Disposition: The patient remained in floor bed throughout the procedure in good condition. Procedure In Detail: After informed consent was obtained, the patient was brought to the ER room and prepped and draped in the usual sterile fashion. After adequate anesthesia was achieved, I used ult rasound guidance to cannulate the left femoral vein on the first attempt using a microintroducer need le. At this point, the microwire was advanced under ultrasound guidance. I then removed the introdu cer needle and made a small marjorie incision overlying the insertion site. I then placed the microintro ducer 5-Yi sheath at this point into the femoral vein and removed the microwire. A standard wire was advanced at this point and I performed sequential dilatation using Seldinger technique over the wire. I then advanced the catheter and over the wire using Seldinger technique in a similar fashion into the femoral vein without incident or complication. The wire was removed for the second time. A wire out was called at this point, I then secured the catheter to the skin using the attached 2-0 ny koko sutures. Both ports nadine back dark red nonpulsatile blood easily and flushed quite easily. At t his point, I cleansed the area and placed a sterile dressing over the top and placed caps on the dial ysis ports, and both ports were locked and clipped. The patient tolerated the procedure well without evidence of complication, remained in the room in good condition throughout the procedure. All coun ts were correct at the end of the case. CHAYA/RISA Voice ID: [id number] Report ID: [id number]
--- NOTE | 2023-01-04 15:42 | P.PN ---
Subjective Date of Service: 01/04/23 Chief Complaint: Pulmonary hypertension cor pulmonale renal failure Patient appears confused, has tremors and she is drowsy Generally weak No change in lower extremity edema. Serum creatinine and BUN continue to trend up. Physical Examination - Vital Signs Temperature: 97.6 F Blood Pressure: 154/75 Pulse: 90 Respirations: 24 Pulse Ox (%): 91 - Studies Microbiology Data (last 24 hrs): 12/30/22 12:48 Blood - Blood Aerobic Blood Culture - Final No growth in 5 days. 12/30/22 12:48 Blood - Blood Anaerobic Blood Culture - Final No growth in 5 days. 12/30/22 11:05 Blood - Blood Aerobic Blood Culture - Final No growth in 5 days. 12/30/22 11:05 Blood - Blood Anaerobic Blood Culture - Final No growth in 5 days. Assessment And Plan - Plan Physical Exam General: Alert, In no apparent distress, Oriented x3, Cooperative, morbidly obese Neck: Supple, no JVD distention Respiratory: Diminished, mild bibasilar crackles Cardiovascular: Regular rate/rhythm, Normal S1 S2, 2+ bilateral leg edema Gastrointestinal: Normal bowel sounds, Non-distended, No tenderness Musculoskeletal: No clubbing, No tenderness Integumentary: Right leg erythema improved Neurological: Normal speech, no focal motor deficit. Diagnosis Sepsis/right lower extremity cellulitis Patient met criteria for sepsis with leukocytosis and tachycardia. Blood cultures: No growth to date. Urine culture; pansensitive Klebsiella. Suspect right lower extremity redness secondary to venous stasis dermatitis as compared to cellulitis IV antibiotics. Acute diastolic CHF exacerbation. Daily weight and strict I/O. Cardiology seen patient. Lasix is on hold due to WILBERTO. Nephrology is planning hemodialysis. Iron deficiency anemia Status post 1 units of PRBC transfusion. IV Iron therapy UTI Urine culture is growing pansensitive Klebsiella. Patient completed at least 3 days of IV antibiotics Acute renal failure/hyperkalemia Lasix is on hold. Patient seen by nephrology. Dr. Reed recommend hemodialysis today. Surgery Dr. Alonzo service consulted for dialysis catheter placement. Hemodialysis per nephrology Elizabeth for hyperkalemia Hyponatremia Nephrology is planning hemodialysis. Continue to monitor renal panel Peripheral neuropathy. Renally dose gabapentin. Dose changed to 100 mg at bedtime Obesity hypoventilation/obstructive sleep apnea/impaired mobility/severe pulmonary hypertension/metabolic encephalopathy BMI greater than 50. Continue BiPAP at night. Pulmonary Dr. Dobson is following Lower extremity venous duplex negative for DVT, VQ scan was ordered but I was told by the account technician patient cannot fit the machine and therefore cannot be done. General consensus is to start anticoagulation. Patient started on Eliquis. Dr. Pinzon also started sildenafil for pulmonary hypertension. Metabolic encephalopathy secondary to uremia and possible CO2 retention. May obtain CT angio since patient is planned for dialysis. Cardiology is following. Patient is needing total assist with bed mobility and transfers. Patient is slated for skilled rehab placement and they are preferring [facility] swing bed if SNF is necessary. Social service is assisting with disposition. Patient's updated on plan of care. DVT prophylaxis: Eliquis.
[2023-01-04] MEDS: CEFAZOLIN 1 GM in NA CHLORIDE 0.9% 50 ML IVPB SCH (20:55)
[2023-01-04] MEDS: TRAZODONE 50 MG TABLET PO SCH (21:00)
[2023-01-04 21:52] LABS: Hepatitis B Core IgM Nonreactive (Nonreactive); Hepatitis B surface AG Interp. Nonreactive (Nonreactive)
[2023-01-04 21:53] LABS: Hepatitis B Surface Ab - Quant < 3.10 mIU/mL (<8.0)
[2023-01-05] MEDS: CEFAZOLIN 1 GM in NA CHLORIDE 0.9% 50 ML IVPB SCH ×2 (00:52→19:36)
[2023-01-05] MEDS: MIDODRINE HCL 5 MG TABLET PO SCH ×3 (01:00→19:36)
[2023-01-05 06:46] LABS: Absolute Lymphocytes (CBC) 0.9 K/uL (0.7-4.9); Hematocrit 25.6 % (36.0-45.0); MCV 73.5 fL (80-100); MPV 7.6 fL (7.6-11.3); Platelets 397 thou/uL (152-406); RBC Red Blood Cell Count 3.48 M/uL (3.86-4.86)
[2023-01-05 07:07] LABS: Albumin 2.4 g/dL (3.4-5.0); Potassium 4.3 mEq/L (3.5-5.1); Thyroid Stimulating Hormone 1.19 uIU/mL (0.358-3.740)
[2023-01-05 07:41] LABS: Blood Morphology Comment NOTED (NOT SEEN); Platelet Estimate INCR
[2023-01-05 07:42] LABS: Anisocytosis 2+; Polychromasia 2+
[2023-01-05] MEDS: ARFORMOTEROL TARTRATE 15 MCG/2 ML VIAL.NEB NEB SCH ×2 (08:05→20:40)
[2023-01-05] MEDS: HYDROCODONE/APAP 10/325 TAB PO PRN (08:24)
--- NOTE | 2023-01-05 10:37 | P.PN ---
Subjective Date of Service: 01/05/23 Chief Complaint: Pulmonary hypertension cor pulmonale renal failure Patient is improving doing better renal function is improved Review of Systems Respiratory: Shortness of Breath Cardiovascular: Edema Physical Examination - Vital Signs Temperature: 97.1 F Blood Pressure: 91/53 Pulse: 85 Respirations: 18 Pulse Ox (%): 93 - Physical Exam General: Alert, Oriented x3 Neck: Supple Respiratory: Clear to auscultation bilaterally Cardiovascular: No edema, Normal pulses, Regular rate/rhythm - Studies Microbiology Data (last 24 hrs): 12/30/22 12:48 Blood - Blood Aerobic Blood Culture - Final No growth in 5 days. 12/30/22 12:48 Blood - Blood Anaerobic Blood Culture - Final No growth in 5 days. 12/30/22 11:05 Blood - Blood Aerobic Blood Culture - Final No growth in 5 days. 12/30/22 11:05 Blood - Blood Anaerobic Blood Culture - Final No growth in 5 days. Assessment And Plan - Current Problems (Diagnosis) (1) Pulmonary hypertension Current Visit: Yes Status: Acute Plan: Patient has severe pulmonary hypertension I suspect secondary to diastolic heart failure also started on low-dose sildenafil (2) Acute on chronic renal failure Current Visit: Yes Status: Acute Plan: Patient's renal function is improving on cefazolin levofloxacin was discontinued (3) Respiratory failure Current Visit: Yes Status: Acute Plan: Patient is 67 years of age with a history of COPD has hypoxic hypercapnic respiratory failure benefit from a noninvasive ventilator prevent hospitalizations BiPAP was deemed unsuitable Qualifiers: Chronicity: chronic Physician Review: Patient Assessed, Agree with Above Assessment and Plan
[2023-01-05] MEDS: SPIRONOLACTONE 25 MG TABLET PO SCH ×2 (11:00→21:30)
[2023-01-05] MEDS: FUROSEMIDE 40 MG/4 ML VIAL IV SCH ×2 (11:01→19:35)
[2023-01-05] MEDS: OXYBUTYNIN ER 5 MG TAB PO SCH (11:01)
[2023-01-05] MEDS: ASPIRIN 81 MG CHEWABLE TABLET PO SCH (11:02)
[2023-01-05] MEDS: LORATADINE 10 MG TAB PO SCH (11:02)
[2023-01-05] MEDS: SILDENAFIL CITRATE 20 MG TABLET PO SCH ×3 (11:02→21:30)
[2023-01-05] MEDS: PANTOPRAZOLE 40MG TABLET PO SCH ×2 (11:02→19:35)
[2023-01-05] MEDS: APIXABAN 5 MG TABLET PO SCH ×2 (11:02→21:30)
[2023-01-05] MEDS: SOD FERRIC GLUC COMPLX/SUCROSE 125 MG in NA CHLORIDE 0.9% 100 ML IV SCH (11:02)
[2023-01-05] MEDS: VALACYCLOVIR 500 MG TAB PO SCH (12:51)
--- NOTE | 2023-01-05 13:44 | PN ---
Date of Progress Note: 01/05/2023 Subjective: The patient was admitted to the hospital with respiratory distress. The patient developed acute kidney injury. The patient was diuresed very well. The patient had right heart failure with severe pulmonary hypertension. The patient was initiated on dialysis yesterday, tolerated very well. We managed to remove 500. Physical Examination: Vital Signs: When I saw the patient; blood pressure 106/52, pulse of 85, afebrile. Chest: Decreased entry bilateral base. Heart: S1, S2. Systolic murmur. Abdomen: Soft, nontender, morbidly obese. Could not appreciate any organomegaly. Extremities: +3 edema. Laboratory Data: WBC 10.1, hemoglobin 7.8. Sodium 130, potassium 4.3, bicarb 26, BUN 57, creatinine 3, GFR of 16. Calcium 8.2, phosphorus 6, albumin 2.4, corrected calcium is 9.6. Serum protein electrophoresis still pending. TSH 1.1, PTH 156. PC ratio 0.8. Serology still pending. Current Medications: The patient on include; 1. Aspirin. 2. Cefazolin. 3. Valacyclovir. 4. Midodrine. 5. Eliquis. 6. IV iron. 7. Epogen. 8. Sildenafil. 9. Spironolactone 50 b.i.d. 10. Gabapentin. 11. Lasix 80 b.i.d. 12. Pantoprazole. Assessment And Plan: 1. Acute kidney injury secondary to cardiorenal with component of pulmonary renal syndrome. I am going to go ahead and arrange for dialysis tomorrow. We will challenge the patient and we will follow up the patient. 2. Hypertension, currently on the lower side. Continue midodrine. We will try to utilize blood pressure for more ultrafiltration. We will follow up. 3. Hyponatremia, dilutional. Will be corrected with dialysis. 4. Hyperkalemia, resolved. 5. Anasarca, no significant proteinuria, TSH within normal limits, secondary to right heart failure. We will continue diuresis. We will try to establish better volume control. 6. Cellulitis. Continue current antibiotic. Levaquin has been discontinued. Still waiting for urine eosinophil. Her peripheral eosinophil continued to be elevated. 7. Pulmonary hypertension. Discussed with Dr. Dobson. Plan to do CT, then dialyze after. Time spent examining the patient [id number], reviewing data, lab and radiology, placing order, discussing the case with the patient, discussing the case with the steam powerplant supervisor including the hospitalist and nursing staff more than 35 minutes. LISBETH Voice ID: [id number] Report ID: [id number] JOHN PAUL
[2023-01-05 15:21] LABS: Rheumatoid Factor NEG (NEG)
--- NOTE | 2023-01-05 15:30 | P.PN ---
Subjective Date of Service: 01/05/23 Chief Complaint: Pulmonary hypertension cor pulmonale renal failure feels patient mental status has significantly improved after dialysis yesterday. She is also less edematous. Physical Examination - Vital Signs Temperature: 97.5 F Blood Pressure: 106/52 Pulse: 85 Respirations: 18 Pulse Ox (%): 93 - Studies Microbiology Data (last 24 hrs): 12/30/22 12:48 Blood - Blood Aerobic Blood Culture - Final No growth in 5 days. 12/30/22 12:48 Blood - Blood Anaerobic Blood Culture - Final No growth in 5 days. 12/30/22 11:05 Blood - Blood Aerobic Blood Culture - Final No growth in 5 days. 12/30/22 11:05 Blood - Blood Anaerobic Blood Culture - Final No growth in 5 days. Assessment And Plan - Plan Physical Exam General: Alert, In no apparent distress, Oriented x3, Cooperative, morbidly obese Neck: Supple, no JVD distention Respiratory: Diminished, mild bibasilar crackles Cardiovascular: Regular rate/rhythm, Normal S1 S2, bilateral leg edema improved from yesterday. Gastrointestinal: Normal bowel sounds, Non-distended, No tenderness Musculoskeletal: No clubbing, No tenderness Integumentary: Right leg erythema improved Neurological: Normal speech, no focal motor deficit. Diagnosis Sepsis/right lower extremity cellulitis Patient met criteria for sepsis with leukocytosis and tachycardia. Blood cultures: No growth to date. Urine culture; pansensitive Klebsiella. Suspect right lower extremity redness secondary to venous stasis dermatitis as compared to cellulitis IV antibiotics. Acute diastolic CHF exacerbation. Daily weight and strict I/O. Cardiology seen patient. Lasix is on hold due to WILBERTO. Status post hemodialysis yesterday. Patient is planned for hemodialysis today and tomorrow. Iron deficiency anemia Status post 1 units of PRBC transfusion. IV Iron therapy UTI Urine culture is growing pansensitive Klebsiella. Patient completed at least 3 days of IV antibiotics Acute renal failure/hyperkalemia Lasix is on hold. Patient seen by nephrology. Dr. Reed recommend hemodialysis today. Surgery Dr. Alonzo service consulted for dialysis catheter placement. Hemodialysis per nephrology Hyponatremia Treatment with hemodialysis Continue to monitor renal panel Peripheral neuropathy. Renally dose gabapentin. Dose changed to 100 mg at bedtime Obesity hypoventilation/obstructive sleep apnea/impaired mobility/severe pulmonary hypertension/metabolic encephalopathy BMI greater than 50. Continue BiPAP at night. Pulmonary Dr. Dobson is following Lower extremity venous duplex negative for DVT, VQ scan was ordered but I was told by the biochemistry technician patient cannot fit the machine and therefore cannot be done. General consensus is to start anticoagulation. Patient started on Eliquis. Dr. Pinzon also started sildenafil for pulmonary hypertension. Metabolic encephalopathy secondary to uremia and possible CO2 retention. AMS improved. CT angio to rule out PE before hemodialysis tomorrow. Cardiology is following. Patient is needing total assist with bed mobility and transfers. Patient is slated for skilled rehab placement and they are preferring [facility] swing bed if SNF is necessary. Social service is assisting with disposition. Patient's updated on plan of care. DVT prophylaxis: Eliquis.
[2023-01-05] MEDS ORDERED: FUROSEMIDE 40 MG/4 ML VIAL IV SCH (20:00)
[2023-01-05] MEDS: TRAZODONE 50 MG TABLET PO SCH (21:00)
[2023-01-05] MEDS: DOCUSATE NA 100 MG CAP PO SCH (21:30)
[2023-01-05] MEDS: GABAPENTIN 100 MG CAP PO SCH (21:30)
[2023-01-05] MEDS: MAGNESIUM HYDROXIDE 8% 30 ML PO PRN (21:31)
[2023-01-06] MEDS: MIDODRINE HCL 5 MG TABLET PO SCH ×3 (00:30→18:27)
[2023-01-06 03:37] LABS: Absolute Lymphocytes (CBC) 1.3 K/uL (0.7-4.9); Hematocrit 26.8 % (36.0-45.0); Lymphocytes % 9.1 % (15.3-44.8); MCV 73.9 fL (80-100); MPV 7.6 fL (7.6-11.3); Platelets 386 thou/uL (152-406); RBC Red Blood Cell Count 3.63 M/uL (3.86-4.86)
[2023-01-06 03:51] LABS: Albumin 2.4 g/dL (3.4-5.0); Phosphorus 5.8 mg/dL (2.5-4.9); Potassium 4.8 mEq/L (3.5-5.1)
[2023-01-06] MEDS: ARFORMOTEROL TARTRATE 15 MCG/2 ML VIAL.NEB NEB SCH ×2 (08:00→19:40)
[2023-01-06] MEDS: DOCUSATE NA 100 MG CAP PO SCH ×2 (08:55→20:22)
[2023-01-06] MEDS: SPIRONOLACTONE 25 MG TABLET PO SCH ×2 (08:55→20:26)
[2023-01-06] MEDS: ASPIRIN 81 MG CHEWABLE TABLET PO SCH (08:55)
[2023-01-06] MEDS: LORATADINE 10 MG TAB PO SCH (08:55)
[2023-01-06] MEDS: SILDENAFIL CITRATE 20 MG TABLET PO SCH ×3 (09:00→20:21)
[2023-01-06] MEDS: OXYBUTYNIN ER 5 MG TAB PO SCH (09:00)
[2023-01-06] MEDS: APIXABAN 5 MG TABLET PO SCH ×2 (09:00→20:22)
[2023-01-06] MEDS: SOD FERRIC GLUC COMPLX/SUCROSE 125 MG in NA CHLORIDE 0.9% 100 ML IV SCH ×2 (09:00→18:29)
[2023-01-06] MEDS: VALACYCLOVIR 500 MG TAB PO SCH (09:00)
[2023-01-06] MEDS ORDERED: FUROSEMIDE 40 MG/4 ML VIAL IV SCH (09:00)
[2023-01-06] MEDS: PANTOPRAZOLE 40MG TABLET PO SCH ×2 (09:00→18:27)
[2023-01-06] MEDS: EPOETIN ALFA-EPBX 10,000 UNIT/ML VIAL SQ SCH (10:00)
--- NOTE | 2023-01-06 11:55 | P.PN ---
Subjective Date of Service: 01/06/23 Chief Complaint: Pulmonary hypertension cor pulmonale renal failure No significant change patient's condition undergoing dialysis Review of Systems General: Weakness Respiratory: Shortness of Breath Cardiovascular: Edema Physical Examination - Vital Signs Temperature: 97.5 F Blood Pressure: 85/43 Pulse: 84 Respirations: 17 Pulse Ox (%): 94 - Physical Exam General: Alert, Oriented x3 Respiratory: Clear to auscultation bilaterally, Diminished Cardiovascular: Edema Assessment And Plan - Current Problems (Diagnosis) (1) Pulmonary hypertension Current Visit: Yes Status: Acute Plan: Patient has severe pulmonary hypertension I suspect secondary to diastolic heart failure also started on low-dose sildenafil no change unable to get a CT pulmonary angiogram (2) Acute on chronic renal failure Current Visit: Yes Status: Acute Plan: Patient undergoing dialysis plan for CT pulmonary angio (3) Respiratory failure Current Visit: Yes Status: Acute Plan: Patient is 67 years of age hypoxic hypercapnic respiratory failure suspected secondary to obesity hypoventilation system and underlying diastolic heart failure prior history of obstructive airways disease Qualifiers: Chronicity: chronic Physician Review: Patient Assessed, Agree with Above Assessment and Plan
[2023-01-06] MEDS: ALBUMIN HUMAN 25% 100 ML IV ONE (13:30)
[2023-01-06] MEDS: MAGNESIUM HYDROXIDE 8% 30 ML PO PRN (18:27)
[2023-01-06] MEDS: CEFAZOLIN 1 GM in NA CHLORIDE 0.9% 50 ML IVPB SCH (18:28)
--- NOTE | 2023-01-06 18:57 | P.PN ---
Subjective Date of Service: 01/06/23 Chief Complaint: Pulmonary hypertension cor pulmonale renal failure No major changes from yesterday. No change in anasarca compared to yesterday. Patient is awake and tolerating diet. Physical Examination - Vital Signs Temperature: 97.5 F Blood Pressure: 116/56 Pulse: 82 Respirations: 17 Pulse Ox (%): 94 Assessment And Plan - Plan Physical Exam General: Alert, In no apparent distress, Oriented x3, Cooperative, morbidly obese Respiratory: Diminished, mild bibasilar crackles Cardiovascular: Regular rate/rhythm, Normal S1 S2, bilateral leg edema improved from yesterday. Gastrointestinal: Normal bowel sounds, Non-distended, No tenderness Musculoskeletal: No clubbing, No tenderness Integumentary: Right leg erythema improved Neurological: Normal speech, no focal motor deficit. Diagnosis Sepsis/right lower extremity cellulitis Patient met criteria for sepsis with leukocytosis and tachycardia. Blood cultures: No growth to date. Urine culture; pansensitive Klebsiella. Suspect right lower extremity redness secondary to venous stasis dermatitis as compared to cellulitis IV antibiotics. Acute diastolic CHF exacerbation. Daily weight and strict I/O. Cardiology seen patient. Lasix is on hold due to WILBERTO. Temporary dialysis initiated. Further dialysis per Nephrology. Iron deficiency anemia Status post 1 units of PRBC transfusion. IV Iron therapy UTI Urine culture is growing pansensitive Klebsiella. Patient completed at least 3 days of IV antibiotics Acute renal failure/hyperkalemia Lasix is on hold. Patient seen by nephrology. Dr. Reed recommended initiation of temporary dialysis Surgery Dr. Alonzo service consulted for dialysis catheter placement. Hemodialysis per nephrology Hyponatremia Treatment with hemodialysis Continue to monitor renal panel Peripheral neuropathy. Renally dose gabapentin. Dose changed to 100 mg at bedtime Obesity hypoventilation/obstructive sleep apnea/impaired mobility/severe pulmonary hypertension/metabolic encephalopathy BMI greater than 50. Continue BiPAP at night. Pulmonary Dr. Dobson is following Lower extremity venous duplex negative for DVT, VQ scan was ordered but I was told by the distribution technician patient cannot fit the machine and therefore cannot be done. General consensus is to start anticoagulation. Patient started on Eliquis. Dr. Pinzon also started sildenafil for pulmonary hypertension. Metabolic encephalopathy secondary to uremia and possible CO2 retention. AMS improved. CT angio to rule out PE before hemodialysis today. Cardiology is following. Patient is needing total assist with bed mobility and transfers. Patient is slated for skilled rehab placement and they are preferring [place] [facility] bed. Social service is assisting with disposition. Patient's updated on plan of care. DVT prophylaxis: Renée.
[2023-01-06] MEDS ORDERED: POLYETHYL GLY 3350 17 GM/DOSE PO ONE (20:19)
[2023-01-06] MEDS: GABAPENTIN 100 MG CAP PO SCH (20:22)
[2023-01-06] MEDS: TRAZODONE 50 MG TABLET PO SCH (20:26)
[2023-01-07] MEDS: MIDODRINE HCL 5 MG TABLET PO SCH ×3 (00:54→17:49)
--- NOTE | 2023-01-07 01:07 | PN ---
Date of Progress Note: 01/06/2023 Chief Complaint: Respiratory distress, heart failure with severe pulmonary hypertension, anasarca, f luid overload. Subjective: Patient was initiated on dialysis for volume control. Patient is scheduled for dialysis today with ultrafiltration. Review of Systems: Patient denies complaints. Physical Examination: Lungs: Diminished breath sounds at bases. Heart: S1, S2. Abdomen: Soft. Extremities: Edema present. Impression And Plan: 1.Acute kidney injury secondary to cardiorenal syndrome. There is element of acute tubular necrosis . Patient has pulmonary renal syndrome and cardiorenal syndrome. Patient will have lab work to [facility] for possible ANCA related disease. 2.Hypertension. Currently, blood pressure is on low side. Patient will continue midodrine. Monito r blood pressure closely. 3.Hyponatremia due to volume overload. Dialysis started with ultrafiltration as tolerated. 4.Hyperkalemia, resolved with dialysis. 5.Anasarca. No significant proteinuria. TSH is within normal limits. The patient has fluid overlo ad secondary to heart failure. 6.Cellulitis. Continue antibiotic. Patient is on antibiotics and Levaquin was stopped. 7.Pulmonary hypertension, per primary care and pulmonary service. EB/MODL Voice ID: [id number] Report ID: [id number]
[2023-01-07 04:29] LABS: Absolute Lymphocytes (CBC) 1.3 K/uL (0.7-4.9); Hematocrit 24.2 % (36.0-45.0); Lymphocytes % 8.2 % (15.3-44.8); MCV 75.2 fL (80-100); MPV 7.6 fL (7.6-11.3); Platelets 391 thou/uL (152-406); RBC Red Blood Cell Count 3.22 M/uL (3.86-4.86)
[2023-01-07 04:40] LABS: Albumin 2.5 g/dL (3.4-5.0); Phosphorus 4.3 mg/dL (2.5-4.9); Potassium 4.5 mEq/L (3.5-5.1)
--- NOTE | 2023-01-07 07:26 | P.PN ---
Date of Service: 01/07/23 Subjective: Doing okay Breathing seems slightly better per family Swelling in legs slowly improving no acute events overnight No BM since admission ROS: 10 point ROS as noted above, otherwise negative Physical Exam: GEN: Alert, oriented, appears uncomfortable HEENT: Normal conjunctiva, sclera anicteric CV: Regular rate and rhythm, 1+ b/l lower extremity edema Pulm: mild labored respirations on 2L NC ABD: Soft, nontender, nondistended Neuro: Normal speech, normal affect vitals reviewed Problem List: Sepsis likely secondary to RLE cellulitis / UTI, Klebsiella Pneumoniae Acute diastolic CHF exacerbation. Iron deficiency anemia WILBERTO hyperkalemia Hyponatremia Peripheral neuropathy. Obesity hypoventilation obstructive sleep apnea impaired mobility severe pulmonary hypertension metabolic encephalopathy, improved Sepsis likely secondary to RLE cellulitis / UTI, Klebsiella Pneumoniae Blood cultures: No growth to date. Urine culture: pansensitive Klebsiella. Suspect RLE redness secondary to venous stasis dermatitis as compared to cellulitis Continue IV cefazolin Acute diastolic CHF exacerbation. Daily weight and strict I/O. Cardiology consulted Lasix is on hold due to WILBERTO. Iron deficiency anemia s/p 1 uPRBC in ED Monitor H&H. Transfuse for hgb < 7. hgb currently 7.3 from 8 Continue IV iron no evidence of active bleed; recheck h/h this evening WILBERTO hyperkalemia Hyponatremia Lasix is on hold. Nephrology consulted Temporary dialysis initiated. Dr. Alonzo consulted for dialysis catheter placement -- placed 01/04 Hemodialysis per nephrology to re-eval in next 1-2 days if needing permanent dialysis catheter Continue to monitor renal function Peripheral neuropathy. Renally dose gabapentin. Dose changed to 100 mg at bedtime Obesity hypoventilation obstructive sleep apnea severe pulmonary hypertension metabolic encephalopathy, improved Venous doppler (12/30): negative for DVT, VQ scan was ordered but was told by the construction technician patient cannot fit the machine and therefore cannot be done. General consensus is to start anticoagulation. Patient started on Eliquis. CTA chest(01/07): negative for PE. pulmonary hypertension, hypoventilation vs mild pulmonary edema Continue BiPAP at night. Metabolic encephalopathy secondary to uremia and possible CO2 retention. AMS improved. Pulmonary Dr. Dobson is following continue sildenafil Cardiology is following. impaired mobility Patient is needing total assist with bed mobility and transfers. Patient is slated for skilled rehab placement and they are preferring [place] [facility] bed. Social service is assisting with disposition. Patient's updated on plan of care. VTE: eliquis Code: Full Dispo: SNF - pending approval ss/cm consulted
[2023-01-07] MEDS: ARFORMOTEROL TARTRATE 15 MCG/2 ML VIAL.NEB NEB SCH ×2 (07:40→20:15)
[2023-01-07] MEDS: LORATADINE 10 MG TAB PO SCH (08:32)
[2023-01-07] MEDS: APIXABAN 5 MG TABLET PO SCH ×2 (08:32→21:39)
[2023-01-07] MEDS: MAGNESIUM HYDROXIDE 8% 30 ML PO PRN (08:32)
[2023-01-07] MEDS: DOCUSATE NA 100 MG CAP PO SCH ×2 (08:33→21:39)
[2023-01-07] MEDS: ASPIRIN 81 MG CHEWABLE TABLET PO SCH (08:33)
[2023-01-07] MEDS: PANTOPRAZOLE 40MG TABLET PO SCH ×2 (08:34→17:38)
[2023-01-07] MEDS: SILDENAFIL CITRATE 20 MG TABLET PO SCH ×3 (09:00→21:40)
[2023-01-07] MEDS: OXYBUTYNIN ER 5 MG TAB PO SCH (09:00)
[2023-01-07] MEDS: VALACYCLOVIR 500 MG TAB PO SCH ×2 (09:00→17:50)
[2023-01-07] MEDS: EPOETIN ALFA-EPBX 10,000 UNIT/ML VIAL SQ SCH ×2 (10:00→10:04)
[2023-01-07] MEDS: SPIRONOLACTONE 25 MG TABLET PO SCH (10:04)
[2023-01-07] MEDS: SOD FERRIC GLUC COMPLX/SUCROSE 125 MG in NA CHLORIDE 0.9% 100 ML IV SCH (10:16)
[2023-01-07] MEDS: ALBUMIN HUMAN 25% 100 ML IV ONE ×3 (12:00→14:00)
--- NOTE | 2023-01-07 12:24 | RAD REPORT ---
EXAM DESCRIPTION: CT - Chest Angio - 01/07/2023 11:45 am CLINICAL HISTORY: R/O PE. dialysis pt COMPARISON: [facility] Con dated 05/27/2022; Chest For Pe Angio dated 11/25/2021 TECHNIQUE: Thin axial CT images of the chest were obtained following administration of 95 mL Isovue 370 IV contrast. Multiplanar reconstructions, and maximum intensity projection reconstructions were g enerated and reviewed. Exam utilizes a protocol for optimal evaluation of pulmonary arterial tree. All CT scans are performed using dose optimization technique as appropriate and may include automated exposure control or mA/KV adjustment according to patient size. FINDINGS: Initial images demonstrated contrast extravasation. The patient was monitored appropriatel y for the extravasation. There was some delay in subsequent imaging, until issues with venous access were resolved. Mild motion artifact somewhat limits evaluation. Pulmonary arteries are show no emboli or other suspi cious finding. Prominent caliber of the main pulmonary artery. Dilation of the right ventricle, these findings may indicate right cardiac dysfunction. No acute or significant aorta findings. No mass or infiltrate in the lung parenchyma. Central predominant mild ground-glass opacities, could reflect hypoventilation or mild edema. No pleural thickening or pleural effusion. No pneumothorax. Mild cardiomegaly. No abnormal mediastinal or hilar masses or lymphadenopathy seen. No chest wall mas s or abnormal axilliary lymphadenopathy. Pronounced body wall edema along the left more than right flank. Sequelae of prior gastric bypass and cholecystectomy IMPRESSION: No evidence of acute central pulmonary emboli. Prominent caliber of the main pulmonary artery and dilation of the right ventricle, may indicate pulm onary hypertension and/or right-sided cardiac dysfunction. Please correlate clinically. Central predominant mild ground-glass opacities, could reflect hypoventilation or mild pulmonary yamileth ma. Pronounced body wall edema along the left more than right flank.
[2023-01-07] MEDS ORDERED: BISACODYL 10 MG RECTAL SUPP PR ONE (14:44)
--- NOTE | 2023-01-07 15:35 | PN ---
Date of Progress Note: 01/07/2023 Subjective: The patient was admitted with anasarca, pulmonary hypertension. The patient had acute kidney injury secondary to cardiorenal. The patient required dialysis. The patient planned for CT with angio to work up her pulmonary hypertension. Serology is still pending. Physical Examination: Vital Signs: Blood pressure 98/55, pulse of 87, afebrile. Chest: Crackles bilateral. Heart: S1, S2. Systolic murmur. Abdomen: Soft, morbidly obese. Could not appreciate any organomegaly. Extremities: +3 edema. Laboratory Data: Hemoglobin 7.3. Sodium 131, potassium 4.5, bicarb 26, BUN 59, creatinine 2.3, calcium 8.3, phosphorus 4.3, albumin 2.5. Corrected calcium 9.5. Current Medications: The patient on include; 1. Aspirin. 2. Valacyclovir. 3. Cefazolin. 4. Loratadine. 5. IV iron. 6. Eliquis. 7. Spironolactone. 8. Gabapentin. 9. Trazodone. 10. Pantoprazole. 11. Oxybutynin. Assessment And Plan: 1. Acute kidney injury secondary to cardiorenal, nonoliguric, over volume. I am going to go ahead and discontinue spironolactone and we will do dialysis today after the contrast. We will continue to monitor the patient. 2. Hypertension, currently blood pressure on the lower side. Discontinue spironolactone. 3. Pulmonary hypertension. CT was negative for microemboli. We will follow up with Pulmonary. Follow up with serology. 4. Hyponatremia secondary to dilutional. Will be corrected with dialysis. 5. Secondary hyperparathyroidism. No need for calcitriol. 6. Anasarca secondary to pulmonary hypertension. Serum protein electrophoresis is still pending. Continue ultrafiltration with dialysis. 7. Iron deficiency anemia. Continue IV iron. Time spent examining the patient [id number], reviewing data, lab and radiology, placing order, discussing the case with the patient, discussing the case with the steam brush operator including the hospitalist and nursing staff more than 35 minutes. LISBETH Voice ID: [id number] Report ID: [id number] JOHN PAUL
[2023-01-07] MEDS: CEFAZOLIN 1 GM in NA CHLORIDE 0.9% 50 ML IVPB SCH (17:48)
[2023-01-07 18:31] LABS: Hematocrit 24.9 % (36.0-45.0); MCV 76.2 fL (80-100); MPV 7.6 fL (7.6-11.3); Platelets 339 thou/uL (152-406); RBC Red Blood Cell Count 3.27 M/uL (3.86-4.86)
[2023-01-07] MEDS ORDERED: SOD FERRIC GLUC COMPLX/SUCROSE 125 MG in NA CHLORIDE 0.9% 100 ML IV SCH (18:45)
[2023-01-07] MEDS: GABAPENTIN 100 MG CAP PO SCH (21:39)
[2023-01-07] MEDS: TRAZODONE 50 MG TABLET PO SCH (21:39)
[2023-01-08] MEDS: MIDODRINE HCL 5 MG TABLET PO SCH ×3 (01:32→16:47)
[2023-01-08] MEDS: ACETAMINOPHEN 325 MG TABLET PO PRN ×2 (02:08→09:48)
[2023-01-08 02:58] LABS: Absolute Lymphocytes (CBC) 1.1 K/uL (0.7-4.9); Hematocrit 24.3 % (36.0-45.0); Lymphocytes % 7.8 % (15.3-44.8); MCV 77.2 fL (80-100); MPV 7.5 fL (7.6-11.3); Platelets 331 thou/uL (152-406); RBC Red Blood Cell Count 3.15 M/uL (3.86-4.86)
[2023-01-08 03:16] LABS: Albumin 2.6 g/dL (3.4-5.0); Phosphorus 3.3 mg/dL (2.5-4.9); Potassium 4.2 mEq/L (3.5-5.1)
--- NOTE | 2023-01-08 07:11 | P.PN ---
Date of Service: 01/08/23 Subjective: Doing okay - slept well overnight Doesn't feel like she is getting worse swelling slowly improving; breathing ~same continues to feel constipated; no BM yet, +flatus has both rectal and abdominal discomfort/pain ROS: 10 point ROS as noted above, otherwise negative Physical Exam: GEN: Alert, oriented, appears uncomfortable HEENT: Normal conjunctiva, sclera anicteric CV: Regular rate and rhythm, 2+ b/l lower extremity edema Pulm: mild labored respirations on 2L NC; diminished bilaterally ABD: Soft, nontender, nondistended Neuro: Normal speech, normal affect vitals reviewed Problem List: Sepsis likely secondary to RLE cellulitis / UTI, Klebsiella Pneumoniae Acute diastolic CHF exacerbation. Iron deficiency anemia WILBERTO hyperkalemia Hyponatremia Peripheral neuropathy. Obesity hypoventilation obstructive sleep apnea impaired mobility severe pulmonary hypertension metabolic encephalopathy, improved Constipation Sepsis likely secondary to RLE cellulitis / UTI, Klebsiella Pneumoniae Blood cultures: No growth to date. Urine culture: pansensitive Klebsiella. Suspect RLE redness secondary to venous stasis dermatitis as compared to cellulitis Continue IV cefazolin Acute diastolic CHF exacerbation. Daily weight and strict I/O. Cardiology consulted Lasix previously on hold due to WILBERTO. Start Lasix drip 01/08 Iron deficiency anemia s/p 1 uPRBC in ED Monitor H&H. Transfuse for hgb < 7. hgb 7.6 -> 7.4 Continue IV iron no evidence of active bleed WILBERTO hyperkalemia Hyponatremia Lasix previously on hold due to WILBERTO. Nephrology consulted Temporary dialysis initiated. Dr. Alonzo consulted for dialysis catheter placement -- placed 01/04 Hemodialysis per nephrology Lasix drip started 01/08 to re-eval in next 1-2 days if needing permanent dialysis catheter Continue to monitor renal function Peripheral neuropathy. Renally dose gabapentin. Dose changed to 100 mg at bedtime Obesity hypoventilation obstructive sleep apnea severe pulmonary hypertension metabolic encephalopathy, improved Venous doppler (12/30): negative for DVT, VQ scan was ordered but was told by the monitor technician patient cannot fit the machine and therefore cannot be done. General consensus is to start anticoagulation. Patient started on Eliquis. CTA chest(01/07): negative for PE. pulmonary hypertension, hypoventilation vs mild pulmonary edema Continue BiPAP at night. Metabolic encephalopathy secondary to uremia and possible CO2 retention. AMS improved. Pulmonary Dr. Dobson is following continue sildenafil Cardiology is following. impaired mobility Patient is needing total assist with bed mobility and transfers. Patient is slated for skilled rehab placement and they are preferring [place] [facility] bed. Social service is assisting with disposition. Patient's updated on plan of care. Constipation no BM for several days, ~10 days colace BID given dulcolax x1 (01/07) will try enema today given no relief VTE: eliquis Code: Full Dispo: SNF - pending approval and further improvement ss/cm consulted
[2023-01-08] MEDS: ARFORMOTEROL TARTRATE 15 MCG/2 ML VIAL.NEB NEB SCH ×2 (08:35→19:25)
[2023-01-08] MEDS: SOD FERRIC GLUC COMPLX/SUCROSE 125 MG in NA CHLORIDE 0.9% 100 ML IV SCH (09:48)
[2023-01-08] MEDS: OXYBUTYNIN ER 5 MG TAB PO SCH (09:50)
[2023-01-08] MEDS: DOCUSATE NA 100 MG CAP PO SCH ×2 (09:50→21:22)
[2023-01-08] MEDS: LORATADINE 10 MG TAB PO SCH (09:50)
[2023-01-08] MEDS: ASPIRIN 81 MG CHEWABLE TABLET PO SCH (09:50)
[2023-01-08] MEDS: APIXABAN 5 MG TABLET PO SCH ×2 (09:50→21:23)
[2023-01-08] MEDS: SILDENAFIL CITRATE 20 MG TABLET PO SCH ×3 (09:51→21:22)
[2023-01-08] MEDS: PANTOPRAZOLE 40MG TABLET PO SCH ×2 (09:51→16:48)
[2023-01-08] MEDS: FUROSEMIDE 100 MG in NA CHLORIDE 0.9% 90 ML IV SCH ×2 (12:42→22:12)
[2023-01-08] MEDS: VALACYCLOVIR 500 MG TAB PO SCH (12:45)
--- NOTE | 2023-01-08 13:12 | PN ---
Date of Progress Note: 01/08/2023 Subjective: The patient was admitted with cardiorenal, pulmonary hypertension, respiratory failure. The patient has been dialyzed. Had acute kidney injury secondary to cardiorenal, required dialysis. The patient still over volume. The patient yesterday undergone CT with contrast, PE was negative. Physical Examination: Vital Signs: When I saw the patient; blood pressure of 107/53, pulse of 83, afebrile. Chest: Crackles bilateral. Heart: S1, S2. Regular. Abdomen: Soft, nontender. Extremity: +3 edema. Neurologic: Alert. No focality. Laboratory Data: Hemoglobin 7.4. Sodium 132, potassium 4.2, bicarb 26, BUN 45, creatinine 1.6, calcium 8.3, phosphorus 3.3, albumin 2.6. Corrected calcium is 9.6. Current Medications: The patient on include; 1. Cefazolin. 2. Valacyclovir. 3. Aspirin. 4. Loratadine. 5. Midodrine 10 t.i.d. 6. IV iron. 7. Eliquis. 8. Sildenafil. 9. Gabapentin. 10. Trazodone. 11. Pantoprazole. Assessment And Plan: 1. Acute kidney injury secondary to cardiorenal, still on the over volume side. Kidney function showing some improvement. I do not have correct I's and O's. I am going to go ahead and hold for the dialysis today. We will do dialysis tomorrow. We will follow up lab. I am going to start the patient on Lasix drip and we will place the patient on strict I's and O's and we will follow up the patient closely. 2. Hypertension. We will utilize blood pressure for more diuresis. Keep holding the Spironolactone. 3. Anasarca secondary to pulmonary hypertension, unknown etiology. We will follow up with Pulmonary. Serology so far pending. Hepatitis has been negative. 4. Hyperkalemia, resolved. 5. Hyponatremia, dilutional. Continue diuresis. Time spent examining the patient [id number], reviewing data, lab and radiology, placing order, discussing the case with the patient, discussing the case with the steam trap worker including the hospitalist and nursing staff more than 35 minutes. LISBETH Voice ID: [id number] Report ID: [id number] MTDD
[2023-01-08] MEDS: CEFAZOLIN 1 GM in NA CHLORIDE 0.9% 50 ML IVPB SCH (16:46)
[2023-01-08] MEDS: HYDROCODONE/APAP 5/325 MG TAB PO PRN (21:21)
[2023-01-08] MEDS: TRAZODONE 50 MG TABLET PO SCH (21:23)
[2023-01-08] MEDS: GABAPENTIN 100 MG CAP PO SCH (21:23)
[2023-01-09] MEDS: MIDODRINE HCL 5 MG TABLET PO SCH ×3 (00:06→17:36)
[2023-01-09 03:15] LABS: Absolute Lymphocytes (CBC) 0.9 K/uL (0.7-4.9); Hematocrit 24.1 % (36.0-45.0); Lymphocytes % 5.5 % (15.3-44.8); MCV 79.1 fL (80-100); MPV 7.5 fL (7.6-11.3); Platelets 328 thou/uL (152-406); RBC Red Blood Cell Count 3.04 M/uL (3.86-4.86)
[2023-01-09 03:41] LABS: Albumin 2.5 g/dL (3.4-5.0); Phosphorus 3.4 mg/dL (2.5-4.9); Potassium 4.2 mEq/L (3.5-5.1)
[2023-01-09 05:13] LABS: Anisocytosis 2+; Blood Morphology Comment NOTED (NOT SEEN); Platelet Estimate ADEQ; Polychromasia 2+
--- NOTE | 2023-01-09 07:33 | P.PN ---
Date of Service: 01/09/23 Subjective: Feeling a little bit better today overall Decent sized BM post enema and felt some relief after working with PT afebrile ROS: 10 point ROS as noted above, otherwise negative Physical Exam: GEN: Alert, oriented, appears uncomfortable HEENT: Normal conjunctiva, sclera anicteric CV: Regular rate and rhythm, 1-2+ b/l lower extremity edema Pulm: mild labored respirations on 2L NC; diminished bilaterally ABD: Soft, nontender, nondistended Neuro: Normal speech, normal affect vitals reviewed Problem List: Sepsis likely secondary to UTI, Klebsiella Pneumoniae Acute diastolic CHF exacerbation. Iron deficiency anemia WILBERTO hyperkalemia Hyponatremia Peripheral neuropathy. Obesity hypoventilation obstructive sleep apnea impaired mobility severe pulmonary hypertension metabolic encephalopathy, improved Constipation Stage 1 sacral pressure ulcer Sepsis likely secondary to UTI, Klebsiella Pneumoniae Blood cultures: No growth to date. Urine culture: pansensitive Klebsiella. Suspect RLE redness secondary to venous stasis dermatitis as compared to cellulitis afebrile, Leukocytosis slightly worse 01/09 increase ancef dosing now that renal function improved Acute diastolic CHF exacerbation. Daily weight and strict I/O. Cardiology consulted Lasix previously on hold due to WILBERTO. Started Lasix drip 01/08, continue Iron deficiency anemia s/p 1 uPRBC in ED Monitor H&H. Transfuse for hgb < 7. hgb 7.4 -> 7.3 Continue IV iron no evidence of active bleed WILBERTO hyperkalemia Hyponatremia Lasix previously on hold due to WILBERTO. Nephrology consulted Temporary dialysis initiated. Dr. Alonzo consulted for dialysis catheter placement -- placed 01/04 Hemodialysis per nephrology continue lasix drip to re-eval in next 1-2 days if needing permanent dialysis catheter Continue to monitor renal function Peripheral neuropathy. Renally dose gabapentin. Dose changed to 100 mg at bedtime Obesity hypoventilation obstructive sleep apnea severe pulmonary hypertension metabolic encephalopathy, improved Venous doppler (12/30): negative for DVT, VQ scan was ordered but was told by the diamond powder technician patient cannot fit the machine and therefore cannot be done. General consensus is to start anticoagulation. Patient started on Eliquis. CTA chest(01/07): negative for PE. pulmonary hypertension, hypoventilation vs mild pulmonary edema eliquis dc'd Continue BiPAP at night. Metabolic encephalopathy secondary to uremia and possible CO2 retention. AMS improved. Pulmonary Dr. Bronson is following continue sildenafil; needs right heart cath for further eval / consideration for more aggressive treatment Cardiology is following. impaired mobility Patient is needing total assist with bed mobility and transfers. Patient is slated for skilled rehab placement and they are preferring [place] [facility]. Social service is assisting with disposition. Patient's updated on plan of care. Constipation colace BID given dulcolax x1 (01/07) s/p enema 01/08 with relief +BM VTE: heparin SQ Code: Full Dispo: SNF - pending approval and further improvement / determination of HD permanent or not ss/cm consulted
[2023-01-09] MEDS: ARFORMOTEROL TARTRATE 15 MCG/2 ML VIAL.NEB NEB SCH ×2 (07:55→20:30)
[2023-01-09] MEDS: PANTOPRAZOLE 40MG TABLET PO SCH ×2 (07:57→17:12)
[2023-01-09] MEDS: FUROSEMIDE 100 MG in NA CHLORIDE 0.9% 90 ML IV SCH ×2 (08:00→16:00)
[2023-01-09] MEDS: LORATADINE 10 MG TAB PO SCH (08:45)
[2023-01-09] MEDS: OXYBUTYNIN ER 5 MG TAB PO SCH (08:45)
[2023-01-09] MEDS: ASPIRIN 81 MG CHEWABLE TABLET PO SCH (08:45)
[2023-01-09] MEDS: APIXABAN 5 MG TABLET PO SCH (08:45)
[2023-01-09] MEDS: DOCUSATE NA 100 MG CAP PO SCH ×2 (08:46→22:06)
[2023-01-09] MEDS: HYDROCODONE/APAP 5/325 MG TAB PO PRN ×2 (08:46→23:28)
[2023-01-09] MEDS: SOD FERRIC GLUC COMPLX/SUCROSE 125 MG in NA CHLORIDE 0.9% 100 ML IV SCH (08:47)
[2023-01-09] MEDS: VALACYCLOVIR 500 MG TAB PO SCH (09:00)
[2023-01-09] MEDS: SILDENAFIL CITRATE 20 MG TABLET PO SCH ×3 (09:00→22:07)
[2023-01-09] MEDS ORDERED: CEFAZOLIN 1 GM in NA CHLORIDE 0.9% 50 ML IVPB SCH (14:00)
--- NOTE | 2023-01-09 14:24 | P.PN ---
Subjective Date of Service: 01/09/23 Chief Complaint: Pulmonary hypertension cor pulmonale renal failure Pt is improving with dialysis. No PE Review of Systems General: Weakness Respiratory: Shortness of Breath Physical Examination - Vital Signs Temperature: 96.9 F Blood Pressure: 110/54 Pulse: 87 Respirations: 16 Pulse Ox (%): 92 - Physical Exam General: Alert, Oriented x3 HEENT: Atraumatic Neck: Supple Respiratory: Clear to auscultation bilaterally, Diminished Cardiovascular: No edema, Regular rate/rhythm, Edema Assessment And Plan - Current Problems (Diagnosis) (1) Pulmonary hypertension Current Visit: Yes Status: Acute Plan: Sever Pulmonary HTN, DW cardiology and NEphrology Pt need a R heart cath to advance therapy for pulomary HTN. Increase Sidenafil to 20 TID for now (2) Acute on chronic renal failure Current Visit: Yes Status: Acute Plan: Renal function is improving/ LE cellulitis is improving (3) Respiratory failure Current Visit: Yes Status: Acute Plan: Patient is 67 years of age hypoxic hypercapnic respiratory failure suspected secondary to obesity hypoventilation system and underlying diastolic heart failure prior history of obstructive airways disease Qualifiers: Chronicity: chronic Physician Review: Patient Assessed, Agree with Above Assessment and Plan
[2023-01-09] MEDS: CEFAZOLIN SODIUM 2 GM in NA CHLORIDE 0.9% 100 ML IVPB SCH ×2 (14:57→22:07)
[2023-01-09 16:28] LABS: Albumin, (SPE) 2.6 g/dL (3.8-4.8); Alpha-1-Globulins 0.5 g/dL (0.2-0.3); Alpha-2-Globulins 0.6 g/dL (0.5-0.9); INTERPRETATION REPORT
[2023-01-09] MEDS: HEPARIN 5000 UNIT/ML 1 ML VIAL SQ SCH (22:06)
[2023-01-09] MEDS: TRAZODONE 50 MG TABLET PO SCH (22:07)
[2023-01-09] MEDS: GABAPENTIN 100 MG CAP PO SCH (22:07)
--- NOTE | 2023-01-10 01:14 | PN ---
Date of Progress Note: 01/09/2023 Chief Complaint: Acute on chronic kidney injury, cardiorenal syndrome, acute diastolic congestive he art failure exacerbation, hyperkalemia, and hyponatremia. History Of Present Illness: Patient was initiated on hemodialysis. She has multiple medical problem s including history of severe pulmonary hypertension, impaired mobility, obstructive sleep apnea, met abolic encephalopathy, chronic constipation. She was found to have urinary tract infection secondary to Klebsiella pneumoniae infection. Dialysis is on hold today. Renal function is plateauing. The patient has urine output and denies chest pain, palpitation. Denies shortness of breath. She is fee ling better. She received laxative and had bowel movement. Review of Systems: Denies chest pain, palpitation. Denies headache, vision changes. Physical Examination: General: Alert, oriented, appears chronically ill. Cardiovascular: S1, S2. No pericardial friction rub. Abdomen: Soft, benign, nontender. Extremities: 1 to 2+ lower extremity edema. Impression And Plan: 1.Sepsis secondary to urinary tract infection, Klebsiella pneumoniae. Continue antibiotics. Evalua te with ultrasound if renal function does not improve. Monitor for any evidence of urinary retention , hyperkalemia, resolved. Monitor electrolytes. Continue low-potassium diet. 2.Fluid overload, congestive heart failure. Continue low-sodium diet. 3.Stage I sacral pressure ulcer, per Primary Team. 4.Metabolic encephalopathy. Mental status has improved. 5.Acute on chronic diastolic congestive heart failure. Continue daily weight and strict I's and O's . Continue low-sodium diet. The patient may be a candidate for diuretic and currently she is on Las ix. Monitor daily weight and evaluate for dialysis according to lab results and volemia status. 6.Hyponatremia secondary to fluid overload. Continue low-sodium diet and Lasix. EB/MODL Voice ID: [id number] Report ID: [id number]
[2023-01-10] MEDS: MIDODRINE HCL 5 MG TABLET PO SCH ×3 (01:15→17:11)
[2023-01-10 03:09] LABS: Absolute Lymphocytes (CBC) 1.1 K/uL (0.7-4.9); Hematocrit 22.6 % (36.0-45.0); Lymphocytes % 6.3 % (15.3-44.8); MCV 80.5 fL (80-100); MPV 7.4 fL (7.6-11.3); Platelets 300 thou/uL (152-406); RBC Red Blood Cell Count 2.81 M/uL (3.86-4.86)
[2023-01-10] MEDS: FUROSEMIDE 100 MG in NA CHLORIDE 0.9% 90 ML IV SCH ×2 (03:18→18:14)
[2023-01-10 03:42] LABS: Albumin 2.4 g/dL (3.4-5.0); Phosphorus 3.3 mg/dL (2.5-4.9); Potassium 4.1 mEq/L (3.5-5.1)
[2023-01-10] MEDS: CEFAZOLIN SODIUM 2 GM in NA CHLORIDE 0.9% 100 ML IVPB SCH ×3 (05:55→21:50)
--- NOTE | 2023-01-10 07:19 | P.PN ---
Date of Service: 01/10/23 Subjective: Trouble sleeping overnight not wanting to transfer to specialty bed receiving 1 uPRBC today no acute events overnight afebrile bleeding noted at left femoral line site. no hematoma ROS: 10 point ROS as noted above, otherwise negative Physical Exam: GEN: Alert, oriented, appears uncomfortable, tired HEENT: Normal conjunctiva, sclera anicteric CV: Regular rate and rhythm, 1-2+ b/l lower extremity edema up to abdomen Pulm: mild labored respirations on 2L NC; diminished bilaterally ABD: Soft, nontender, nondistended Neuro: Normal speech, normal affect vitals reviewed Problem List: Sepsis secondary to UTI, Klebsiella Pneumoniae Acute diastolic CHF exacerbation. Iron deficiency anemia WILBERTO hyperkalemia Hyponatremia Peripheral neuropathy. Obesity hypoventilation obstructive sleep apnea impaired mobility severe pulmonary hypertension metabolic encephalopathy, improved Constipation Stage 1 sacral pressure ulcer Sepsis secondary to UTI, Klebsiella Pneumoniae Blood cultures: No growth to date. Urine culture: pansensitive Klebsiella. Suspect RLE redness secondary to venous stasis dermatitis as compared to cellulitis afebrile, Leukocytosis slightly worse 01/09 increase ancef dosing 01/09 that renal function improved Acute diastolic CHF exacerbation. Daily weight and strict I/O. Cardiology consulted Lasix previously on hold due to WILBERTO. Started Lasix drip 01/08, continue Iron deficiency anemia s/p 1 uPRBC in ED Monitor H&H. Transfuse for hgb < 7. hgb 7.3 -> 7.0 IV iron dc'd 01/10; 1 uPRBC ordered 01/10 WILBERTO hyperkalemia Hyponatremia Lasix previously on hold due to WILBERTO. Nephrology consulted Temporary dialysis initiated. Dr. Alonzo consulted for dialysis catheter placement -- placed 01/04 Hemodialysis per nephrology continue lasix drip to re-eval in next 1-2 days if needing permanent dialysis catheter renal function seems to have some recovery and tolerating lasix drip Continue to monitor renal function Peripheral neuropathy. Renally dose gabapentin. Dose changed to 100 mg at bedtime Obesity hypoventilation obstructive sleep apnea severe pulmonary hypertension metabolic encephalopathy, improved Venous doppler (12/30): negative for DVT, VQ scan was ordered but was told by the isotope technician patient cannot fit the machine and therefore cannot be done. General consensus is to start anticoagulation. Patient started on Eliquis. CTA chest(01/07): negative for PE. pulmonary hypertension, hypoventilation vs mild pulmonary edema eliquis dc'd Continue BiPAP at night. Metabolic encephalopathy secondary to uremia and possible CO2 retention. AMS improved. Pulmonary Dr. Dobson is following needs right heart cath for further eval / consideration for more aggressive treatment continue sildenafil; increased to 20 mg TID 12/20 Cardiology is following. impaired mobility Patient is needing total assist with bed mobility and transfers. Patient is slated for skilled rehab placement and they are preferring [place] swing bed. Social service is assisting with disposition. Patient's updated on plan of care. Constipation colace BID given dulcolax x1 (01/07) s/p enema 01/08 with relief +BM VTE: heparin SQ Code: Full Dispo: SNF - pending approval and further improvement / determination of HD permanent or not ss/cm consulted
[2023-01-10] MEDS: ARFORMOTEROL TARTRATE 15 MCG/2 ML VIAL.NEB NEB SCH ×2 (07:45→21:30)
[2023-01-10] MEDS ORDERED: NA CHLORIDE 0.9% 250 ML IV SCH (08:00)
[2023-01-10] MEDS: SOD FERRIC GLUC COMPLX/SUCROSE 125 MG in NA CHLORIDE 0.9% 100 ML IV SCH (08:50)
[2023-01-10] MEDS: HEPARIN 5000 UNIT/ML 1 ML VIAL SQ SCH ×2 (08:50→21:50)
[2023-01-10] MEDS: PANTOPRAZOLE 40MG TABLET PO SCH ×2 (08:51→17:11)
[2023-01-10] MEDS: VALACYCLOVIR 500 MG TAB PO SCH (08:51)
[2023-01-10] MEDS: SILDENAFIL CITRATE 20 MG TABLET PO SCH ×3 (08:51→21:51)
[2023-01-10] MEDS: LORATADINE 10 MG TAB PO SCH (08:52)
[2023-01-10] MEDS: ASPIRIN 81 MG CHEWABLE TABLET PO SCH (08:52)
[2023-01-10] MEDS: OXYBUTYNIN ER 5 MG TAB PO SCH (08:52)
[2023-01-10] MEDS: DOCUSATE NA 100 MG CAP PO SCH ×2 (08:52→21:51)
--- NOTE | 2023-01-10 13:15 | P.PN ---
Subjective Date of Service: 01/10/23 Chief Complaint: Pulmonary hypertension cor pulmonale renal failure Subjective: No new changes Physical Examination - Vital Signs Temperature: 97.4 F Blood Pressure: 114/54 Pulse: 95 Respirations: 17 Pulse Ox (%): 92 - Physical Exam General: Other (appears as her stated age) HEENT: Atraumatic, Normocephalic Neck: Supple, JVD not distended Respiratory: Other (Symmetric chest expansion) Cardiovascular: No rubs, No murmurs Gastrointestinal: Soft and benign, No rebound Musculoskeletal: No clubbing Integumentary: No warmth Neurological: Normal tone Urinary: Other (No bladder distention) External genitalia: Deferred Rectal: Deferred Assessment And Plan - Plan 1. WILBERTO 2/2 CRS1. SCr improved to 1.6. Lasix as below. 2. Sepsis secondary to urinary tract infection, Klebsiella pneumoniae. Continue antibiotics. F/u cultures. 3. Acute on chronic diastolic heart failure, severe pulmo Htn. Continue low- sodium diet. On lasix gtt. 4. Stage I sacral pressure ulcer, per Primary Team. 5. Metabolic encephalopathy. Mental status has improved. 6. Hyponatremia. Continue low-sodium diet and Lasix. Physician Review: Patient Assessed, Agree with Above Assessment and Plan
[2023-01-10] MEDS: ONDANSETRON 4 MG/2 ML VIAL IV PRN (13:29)
[2023-01-10] MEDS: MAGNESIUM HYDROXIDE 8% 30 ML PO PRN (15:59)
[2023-01-10 16:32] LABS: Hematocrit 27.5 % (36.0-45.0)
--- NOTE | 2023-01-10 18:54 | PN ---
Date of Progress Note: 01/10/2023 Subjective: Seen by bedside. Continues to have shortness of breath and lower extremity edema. Review of Systems: No new complaints. Shortness of breath, lower extremity edema. No chest pain, vomiting, or diarrhea . Physical Examination: Vital Signs: Reviewed. Head and Neck: Pupils are equal, reactive to light. Intact eye movements. Positive JVD. Lungs: Decreased breathing sounds bilaterally. Heart: Irregular. No extra sounds. Abdomen: Soft, nontender. Bowel sounds positive. No organomegaly. No masses or hernia. No rigidi ty or rebound. Extremities: Edema bilaterally. No clubbing or cyanosis. Intact pulses. Skin: No rash. Neurologic: Alert, awake, oriented x3. No acute focal deficits appreciated. Investigations: Labs were reviewed. Assessment And Recommendations: 1.Severe pulmonary hypertension. Discussed with Pulmonary. I will plan for doing a right heart cat heterization. Likely, this is pulmonary artery hypertension. 2.Severe RV dilation with moderate dysfunction. Pulmonary embolism needs to be ruled out. The chapis ent had a CTA of the chest that did not show pulmonary embolism. Likely, the RV dilation is due to severe pulmonary hypertension. We will plan for right heart catheterization on her. SR/MODL Voice ID: [id number] Report ID: [id number]
[2023-01-10] MEDS: GABAPENTIN 100 MG CAP PO SCH (21:51)
[2023-01-10] MEDS: TRAZODONE 50 MG TABLET PO SCH (21:51)
[2023-01-11] MEDS: MIDODRINE HCL 5 MG TABLET PO SCH ×3 (01:38→16:52)
[2023-01-11 03:39] LABS: Hematocrit 26.2 % (36.0-45.0); Lymphocytes % 6.3 % (15.3-44.8); MCV 83.3 fL (80-100); MPV 7.6 fL (7.6-11.3); Platelets 263 thou/uL (152-406); RBC Red Blood Cell Count 3.14 M/uL (3.86-4.86)
[2023-01-11 04:09] LABS: Albumin 2.3 g/dL (3.4-5.0); Magnesium 3.2 mg/dL (1.6-2.4); Phosphorus 3.6 mg/dL (2.5-4.9); Potassium 3.9 mEq/L (3.5-5.1)
[2023-01-11] MEDS: FUROSEMIDE 100 MG in NA CHLORIDE 0.9% 90 ML IV SCH ×2 (05:40→16:52)
[2023-01-11] MEDS: CEFAZOLIN SODIUM 2 GM in NA CHLORIDE 0.9% 100 ML IVPB SCH ×3 (06:44→22:06)
[2023-01-11] MEDS: ARFORMOTEROL TARTRATE 15 MCG/2 ML VIAL.NEB NEB SCH ×2 (07:35→20:00)
--- NOTE | 2023-01-11 07:52 | P.PN ---
Date of Service: 01/11/23 Subjective: Doing okay - feeling a little better today appears more comfortable in bed no acute events overnight ROS: 10 point ROS as noted above, otherwise negative Physical Exam: GEN: Alert, oriented, Tired HEENT: Normal conjunctiva, sclera anicteric CV: Regular rate and rhythm, 1-2+ b/l lower extremity edema up to abdomen Pulm: mild labored respirations on 2L NC; diminished bilaterally ABD: Soft, nontender, nondistended Neuro: Normal speech, normal affect vitals reviewed Problem List: Sepsis secondary to UTI, Klebsiella Pneumoniae Acute diastolic CHF exacerbation. Iron deficiency anemia WILBERTO hyperkalemia Hyponatremia Peripheral neuropathy. Obesity hypoventilation obstructive sleep apnea impaired mobility severe pulmonary hypertension metabolic encephalopathy, improved Constipation Stage 1 sacral pressure ulcer Sepsis secondary to UTI, Klebsiella Pneumoniae Blood cx (12/30): No growth Urine culture (12/30): pansensitive Klebsiella. Suspect RLE redness secondary to venous stasis dermatitis as compared to cellulitis afebrile, Leukocytosis improving continue ancef - increased 01/09 (adjusted per renal function) Acute diastolic CHF exacerbation. Daily weight and strict I/O. Cardiology consulted Lasix previously on hold due to WILBERTO. continue lasix drip Iron deficiency anemia s/p 2uPRBC (1 in ED, 1 on 01/10) IV iron dc'd 01/10 Monitor H&H. Transfuse for hgb < 7. hgb 8.6 -> 8.2 WILBERTO hyperkalemia Hyponatremia Lasix previously on hold due to WILBERTO. Nephrology consulted Temporary dialysis initiated. Dr. Alonzo consulted for dialysis catheter placement -- placed 01/04 continue lasix drip renal function seems to have some recovery and tolerating lasix drip no need for permanent HD at this time per nephrology; tentative plan to DC dialysis catheter today/tomorrow Continue to monitor renal function improving Peripheral neuropathy. Renally dose gabapentin. Dose changed to 100 mg at bedtime Obesity hypoventilation obstructive sleep apnea severe pulmonary hypertension metabolic encephalopathy, improved Venous doppler (12/30): negative for DVT, VQ scan was ordered but was told by the electronics technician patient cannot fit the machine and therefore cannot be done. General consensus is to start anticoagulation. Patient started on Eliquis. CTA chest(01/07): negative for PE. pulmonary hypertension, hypoventilation vs mild pulmonary edema eliquis dc'd Continue BiPAP at night. Metabolic encephalopathy secondary to uremia and possible CO2 retention. AMS improved. Pulmonary Dr. Dobson is following needs right heart cath for further eval / consideration for more aggressive treatment continue sildenafil; increased to 20 mg TID 01/09 Cardiology is following. impaired mobility Patient is needing total assist with bed mobility and transfers. Patient is slated for skilled rehab placement and they are preferring [place] swing bed. Social service is assisting with disposition. Patient's updated on plan of care. Constipation colace BID given dulcolax x1 (01/07) s/p enema 01/08 with relief +BM VTE: heparin SQ Code: Full Dispo: SNF - pending approval and further improvement ss/cm consulted
[2023-01-11] MEDS ORDERED: POTASSIUM CL SA 10 MEQ TAB PO ONE (08:00)
[2023-01-11] MEDS: HEPARIN 5000 UNIT/ML 1 ML VIAL SQ SCH ×2 (09:22→20:46)
[2023-01-11] MEDS: ASPIRIN 81 MG CHEWABLE TABLET PO SCH (09:22)
[2023-01-11] MEDS: SILDENAFIL CITRATE 20 MG TABLET PO SCH ×3 (09:23→20:47)
[2023-01-11] MEDS: OXYBUTYNIN ER 5 MG TAB PO SCH (09:23)
[2023-01-11] MEDS: DOCUSATE NA 100 MG CAP PO SCH ×2 (09:23→20:47)
[2023-01-11] MEDS: LORATADINE 10 MG TAB PO SCH (09:23)
[2023-01-11] MEDS: VALACYCLOVIR 500 MG TAB PO SCH (09:23)
[2023-01-11] MEDS: PANTOPRAZOLE 40MG TABLET PO SCH ×2 (09:23→16:52)
[2023-01-11] MEDS: MAGNESIUM HYDROXIDE 8% 30 ML PO PRN (10:35)
[2023-01-11] MEDS: HYDROCODONE/APAP 5/325 MG TAB PO PRN (11:16)
[2023-01-11] MEDS: GABAPENTIN 100 MG CAP PO SCH (20:46)
[2023-01-11] MEDS: TRAZODONE 50 MG TABLET PO SCH (20:47)
--- NOTE | 2023-01-12 00:51 | PN ---
Date of Progress Note: 01/11/2023 Chief Complaint: Acute kidney injury, cardiorenal syndrome. Subjective: Patient is on Lasix. Patient was found to have sepsis secondary to urinary tract infect ion. She was initiated on dialysis for cardiorenal syndrome and acute kidney injury on chronic kidne y disease. Patient was found to have pulmonary hypertension and cor pulmonale and renal failure. Justino díaz currently has nonoliguric urine output. She is feeling better. Surgical team was consulted to remove catheter. Review of Systems: Denies chest pain, palpitation. Physical Examination: Lungs: Clear to auscultation bilaterally. Heart: S1, S2. Abdomen: Soft, benign. Extremities: Slight edema. Impression And Plan: 1.Acute kidney injury secondary to cardiorenal syndrome. Serum creatinine level improved to 1.6. C ontinue Lasix. 2.Sepsis due to urinary tract infection with Klebsiella pneumoniae, on antibiotics as before. Follo wup cultures. 3.Acute on chronic diastolic congestive heart failure, severe pulmonary hypertension. Continue low- sodium diet and continue Lasix drip. 4.Stage I sacral pressure ulcer, per primary team. 5.Metabolic encephalopathy. status has improved. 6.Hyponatremia. Continue low-sodium diet and Lasix. EB/MODL Voice ID: [id number] Report ID: [id number]
[2023-01-12] MEDS ORDERED: FLEET ENEMA ADULT PR PRN (01:07)
[2023-01-12] MEDS: MIDODRINE HCL 5 MG TABLET PO SCH ×3 (01:23→17:24)
[2023-01-12 04:28] LABS: Hematocrit 24.6 % (36.0-45.0); MCV 84.6 fL (80-100); MPV 7.5 fL (7.6-11.3); Platelets 244 thou/uL (152-406)
[2023-01-12 04:43] LABS: Albumin 2.2 g/dL (3.4-5.0); Magnesium 2.9 mg/dL (1.6-2.4); Phosphorus 2.8 mg/dL (2.5-4.9); Potassium 3.7 mEq/L (3.5-5.1)
[2023-01-12] MEDS: CEFAZOLIN SODIUM 2 GM in NA CHLORIDE 0.9% 100 ML IVPB SCH ×3 (05:42→22:03)
--- NOTE | 2023-01-12 07:17 | P.PN ---
Date of Service: 01/12/23 Subjective: Doing okay no new / worsening problems Breathing okay on 2L NC Swelling in legs slowly improving ROS: 10 point ROS as noted above, otherwise negative Physical Exam: GEN: Alert, oriented, uncomfortable appearing HEENT: Normal conjunctiva, sclera anicteric CV: Regular rate and rhythm, 1-2+ b/l lower extremity edema up to abdomen Pulm: mild labored respirations on 2L NC; diminished bilaterally ABD: Soft, nontender, nondistended Neuro: Normal speech, normal affect vitals reviewed Problem List: Sepsis secondary to UTI, Klebsiella Pneumoniae Acute diastolic CHF exacerbation. Iron deficiency anemia WILBERTO hyperkalemia Hyponatremia Peripheral neuropathy. Obesity hypoventilation obstructive sleep apnea impaired mobility severe pulmonary hypertension metabolic encephalopathy, improved Constipation Stage 1 sacral pressure ulcer Sepsis secondary to UTI, Klebsiella Pneumoniae Blood cx (12/30): No growth Urine culture (12/30): pansensitive Klebsiella. Suspect RLE redness secondary to venous stasis dermatitis as compared to cellulitis afebrile, Leukocytosis improving continue ancef (01/04-); increased 01/09 (adjusted per renal function) Acute diastolic CHF exacerbation. Daily weight and strict I/O. Cardiology consulted Lasix previously on hold due to WILBERTO and received temp dialysis continue lasix drip Iron deficiency anemia s/p 2uPRBC (1 in ED, 1 on 01/10) s/p IV iron 01/10 hgb 8.2 -> 7.7 WILBERTO hyperkalemia Hyponatremia Lasix previously on hold due to WILBERTO. Nephrology consulted Temporary dialysis initiated. Dr. Alonzo consulted for dialysis catheter placement -- placed 01/04; removal planned for 01/12 or 01/13 renal function seems to have some recovery and tolerating lasix drip continue lasix drip improving Peripheral neuropathy. Renally dose gabapentin. Dose changed to 100 mg at bedtime Obesity hypoventilation obstructive sleep apnea severe pulmonary hypertension metabolic encephalopathy, improved Venous doppler (12/30): negative for DVT, VQ scan was ordered but was told by the gastroenterology technician patient cannot fit the machine and therefore cannot be done. General consensus is to start anticoagulation. Patient started on Eliquis. CTA chest(01/07): negative for PE. pulmonary hypertension, hypoventilation vs mild pulmonary edema eliquis dc'd Continue BiPAP at night. Metabolic encephalopathy secondary to uremia and possible CO2 retention. AMS improved. Pulmonary Dr. Dobson is following needs right heart cath for further eval / consideration for more aggressive treatment - likely tomorrow (01/13); no need for NPO after midnight per Dr. Valenzuela continue sildenafil; increased to 20 mg TID 01/09 Cardiology is following. impaired mobility Patient is needing total assist with bed mobility and transfers. Patient is slated for skilled rehab placement and they are preferring [facility] swing bed. Social service is assisting with disposition. Patient's updated on plan of care. Constipation colace BID given dulcolax x1 (01/07) s/p enema 01/08 and 01/12 VTE: heparin SQ Code: Full Dispo: SNF - pending approval and further improvement ss/cm consulted
[2023-01-12] MEDS: ARFORMOTEROL TARTRATE 15 MCG/2 ML VIAL.NEB NEB SCH ×2 (07:25→19:26)
[2023-01-12] MEDS ORDERED: POTASSIUM CL SA 10 MEQ TAB PO ONE (08:00)
[2023-01-12] MEDS: SILDENAFIL CITRATE 20 MG TABLET PO SCH ×3 (09:26→20:00)
[2023-01-12] MEDS: DOCUSATE NA 100 MG CAP PO SCH ×2 (09:26→20:00)
[2023-01-12] MEDS: HEPARIN 5000 UNIT/ML 1 ML VIAL SQ SCH ×2 (09:26→20:00)
[2023-01-12] MEDS: LORATADINE 10 MG TAB PO SCH (09:26)
[2023-01-12] MEDS: MAGNESIUM HYDROXIDE 8% 30 ML PO PRN (09:26)
[2023-01-12] MEDS: ASPIRIN 81 MG CHEWABLE TABLET PO SCH (09:26)
[2023-01-12] MEDS: VALACYCLOVIR 500 MG TAB PO SCH (09:27)
[2023-01-12] MEDS: OXYBUTYNIN ER 5 MG TAB PO SCH (09:27)
[2023-01-12] MEDS: PANTOPRAZOLE 40MG TABLET PO SCH ×2 (09:27→17:24)
[2023-01-12] MEDS: ACETYLCYST 20% 800 MG/4 ML VIAL PO SCH ×2 (09:46→20:00)
[2023-01-12] MEDS: FUROSEMIDE 100 MG in NA CHLORIDE 0.9% 90 ML IV SCH ×5 (15:56)
[2023-01-12] MEDS: D5 0.45 NS 1,000 ML IV SCH (19:45)
[2023-01-12] MEDS: GABAPENTIN 100 MG CAP PO SCH (20:00)
[2023-01-12] MEDS: TRAZODONE 50 MG TABLET PO SCH (22:03)
--- NOTE | 2023-01-12 23:24 | PN ---
Date of Progress Note: 01/12/2023 Chief Complaint: Acute kidney injury, cardiorenal syndrome. Subjective: The patient is on Lasix. The patient primarily was started to have acute on chronic kid petey injury with cardiorenal syndrome. Dialysis is on hold and patient will have catheter removed. B lood pressure is stable and renal function has improved to baseline. Patient is scheduled for right heart cardiac catheterization to evaluate pulmonary hypertension. The patient was started on Mucomys t and IV fluids. Impression And Plan: 1.Acute kidney injury secondary to cardiorenal syndrome. Serum creatinine level improved to 1.6. C ontinue Lasix. 2.Sepsis due to urinary tract infection with Klebsiella pneumonia, on antibiotics as before. Follow up cultures by Infectious Disease. 3.Acute on chronic kidney disease, acute on chronic diastolic congestive heart failure, severe pulmo nary hypertension. Further recommendation from Cardiology and Pulmonary. 4.Stage I secondary to a pressure ulcer per primary team. 5.Metabolic encephalopathy. Monitor electrolytes and continue to adjust Lasix dose. 6.Hyponatremia secondary to congestive heart failure. Continue low-sodium diet and Lasix. Monitor renal panel. EB/MODL Voice ID: [id number] Report ID: [id number]
[2023-01-13] MEDS: MIDODRINE HCL 5 MG TABLET PO SCH ×3 (00:35→16:51)
[2023-01-13 03:05] LABS: Protime INR 1.69
[2023-01-13 03:06] LABS: Hematocrit 23.5 % (36.0-45.0); Lymphocytes % 7.9 % (15.3-44.8); MPV 7.6 fL (7.6-11.3); Platelets 228 thou/uL (152-406); RBC Red Blood Cell Count 2.73 M/uL (3.86-4.86)
[2023-01-13 03:37] LABS: Albumin 2.2 g/dL (3.4-5.0); Bilirubin Total 0.8 mg/dL (0.2-1.0); Magnesium 2.6 mg/dL (1.6-2.4); Phosphorus 2.5 mg/dL (2.5-4.9); Potassium 3.5 mEq/L (3.5-5.1); Protein, Total 5.3 g/dL (6.4-8.2)
[2023-01-13] MEDS: FUROSEMIDE 100 MG in NA CHLORIDE 0.9% 90 ML IV SCH ×3 (03:47→15:11)
[2023-01-13 04:20] LABS: Anisocytosis 2+; Blood Morphology Comment NOTED (NOT SEEN); Platelet Estimate ADEQ; Polychromasia 2+
[2023-01-13] MEDS: CEFAZOLIN SODIUM 2 GM in NA CHLORIDE 0.9% 100 ML IVPB SCH ×3 (05:15→22:16)
--- NOTE | 2023-01-13 07:11 | P.PN ---
Date of Service: 01/13/23 Subjective: feels some improvement each day worked with PT today in bed today swelling in legs continues to improve feels constipated no acute events overnight ROS: 10 point ROS as noted above, otherwise negative Physical Exam: GEN: Alert, oriented, uncomfortable appearing HEENT: Normal conjunctiva, sclera anicteric CV: Regular rate and rhythm, 1-2+ b/l lower extremity edema up to abdomen Pulm: mild labored respirations on 2L NC; diminished bilaterally ABD: Soft, nontender, nondistended Neuro: Normal speech, normal affect vitals reviewed Problem List: Sepsis secondary to UTI, Klebsiella Pneumoniae Acute diastolic CHF exacerbation. Iron deficiency anemia WILBERTO hyperkalemia Hyponatremia Peripheral neuropathy. Obesity hypoventilation obstructive sleep apnea impaired mobility severe pulmonary hypertension metabolic encephalopathy, improved Constipation Stage 1 sacral pressure ulcer Sepsis secondary to UTI, Klebsiella Pneumoniae Blood cx (12/30): No growth Urine culture (12/30): pansensitive Klebsiella. Suspect RLE redness secondary to venous stasis dermatitis as compared to cellulitis afebrile, Leukocytosis improving continue ancef (01/04-); increased 01/09 (adjusted per renal function) Acute diastolic CHF exacerbation. Daily weight and strict I/O. Cardiology consulted Lasix previously on hold due to WILBERTO and received temp dialysis continue lasix drip Iron deficiency anemia s/p 2uPRBC (1 in ED, 1 on 01/10) received IV iron @125mg x8 from 01/03-01/10 hgb 7.7 -> 7.3 WILBERTO hyperkalemia Hyponatremia Lasix previously on hold due to WILBERTO. Nephrology consulted Temporary dialysis initiated. Dr. Alonzo consulted for dialysis catheter placement -- placed 01/04; removal planned for 01/12 or 01/13 renal function seems to have some recovery and tolerating lasix drip continue lasix drip improving Peripheral neuropathy. Renally dose gabapentin. Dose changed to 100 mg at bedtime Obesity hypoventilation obstructive sleep apnea severe pulmonary hypertension metabolic encephalopathy, improved Venous doppler (12/30): negative for DVT, VQ scan was ordered but was told by the vending service technician patient cannot fit the machine and therefore cannot be done. General consensus is to start anticoagulation. Patient started on Eliquis. CTA chest(01/07): negative for PE. pulmonary hypertension, hypoventilation vs mild pulmonary edema eliquis dc'd Continue BiPAP at night. Metabolic encephalopathy secondary to uremia and possible CO2 retention. AMS improved. Pulmonary Dr. Dobson is following s/p right heart cath by Dr. Valenzuela (01/13) noted Severe pulmonary hypertension, predominantly arterial, but there was a venous component to it as wel Management as per Dr. Dobson for pulmonary hypertension continue sildenafil; increased to 20 mg TID 01/09 Cardiology is following. impaired mobility Patient is needing total assist with bed mobility and transfers. Patient is slated for skilled rehab placement and they are preferring [facility] swing bed. Social service is assisting with disposition. Patient's updated on plan of care. Constipation colace BID given dulcolax x1 (01/07) s/p enema 01/08 and 01/12 VTE: heparin SQ Code: Full Dispo: SNF - pending approval and further improvement ss/cm consulted
[2023-01-13] MEDS: PANTOPRAZOLE 40MG TABLET PO SCH ×3 (07:30→16:51)
[2023-01-13] MEDS: ACETYLCYST 20% 800 MG/4 ML VIAL PO SCH ×2 (07:38→20:38)
[2023-01-13] MEDS: ONDANSETRON 4 MG/2 ML VIAL IV PRN (07:42)
[2023-01-13] MEDS: ARFORMOTEROL TARTRATE 15 MCG/2 ML VIAL.NEB NEB SCH ×2 (08:00→20:00)
[2023-01-13] MEDS ORDERED: HEPA 1000U/500MLS 2,000 UNIT/1,000 ML BAG IV ONE (08:59)
[2023-01-13] MEDS ORDERED: LIDOCAINE 1% 20 ML MDV ONE (08:59)
[2023-01-13] MEDS: HEPARIN 5000 UNIT/ML 1 ML VIAL SQ SCH ×2 (09:00→20:38)
[2023-01-13] MEDS ORDERED: NA CHLORIDE 0.9% 500 ML ONE (09:20)
--- NOTE | 2023-01-13 10:03 | OP ---
Date of Procedure: 01/13/2023 Surgeon: VALERIE VAUGHAN Procedure Performed: Right heart catheterization. Indication: Pulmonary hypertension. Access: Right IJ 7-Indian closed with manual pressure. Complications: None. Bleeding: Less than 20 mL. Description Of Procedure: After risks, benefits, and alternatives were explained, the patient agreed to procedure and signed informed consent. The patient was brought into the cardiac catheterization laboratory, prepped and draped in the usual sterile fashion. Then, I accessed right IJ using micropu ncture, ultrasound guidance, and placed 7-Indian [place] sheath and then I took a 7-Indian balloon-t ipped [place] catheter into the right atrium, right ventricle pulmonary artery and wedge, and took press ure and waveform and then performed thermodilutional cardiac output measurements and then removed the [place] catheter and the patient was sent to recovery in stable condition after removing the sheath and applying manual pressure. Findings: RA pressure is 25. RV pressure is 84/9, mean of 21. PA pressure is 85/40, mean of 58. P ulmonary wedge pressure is between 15 and 20 and average cardiac output is 10 L/minute, and the pulmo nary vascular resistance is 3.8 Wood units. Conclusion: Severe pulmonary hypertension, predominantly arterial, but there was a venous component to it as well. Recommendation: Management as per Dr. Dobson for pulmonary hypertension and I recommend diuretics as well. SR/MODL Voice ID: [id number] Report ID: [id number]
--- NOTE | 2023-01-13 10:03 | PN ---
Date of Progress Note: 01/13/2023 Subjective: Seen by bedside. Continues to have shortness of breath. Review of Systems: No chest pain. Positive shortness of breath. No nausea, vomiting, diarrhea. No abdominal pain. Al l other systems reviewed and they were negative. Physical Examination: Vital Signs: Reviewed. Head and Neck: Pupils are equal, reactive to light. Intact eye movements. No cervical lymphadenopa thy. Lungs: Clear to auscultation bilaterally. Heart: Irregular. No extra sounds. Abdomen: Soft, nontender. Bowel sounds positive. No organomegaly. No masses or hernia. No rigidi ty or rebound. Extremities: No clubbing or cyanosis. Positive edema. Neurologic: Alert, awake, oriented x3. No acute focal deficits appreciated. Investigations: Labs were reviewed. Assessment And Recommendations: 1.Severe pulmonary hypertension. Plan for right heart catheterization today to evaluate the etiolog y. 2.Right heart failure due to severe pulmonary hypertension and she is under the care of Pulmonary fo r pulmonary hypertension management. We will obtain right heart catheterization today. /RISA Voice ID: [id number] Report ID: [id number]
[2023-01-13] MEDS: DOCUSATE NA 100 MG CAP PO SCH ×2 (11:07→20:37)
[2023-01-13] MEDS: VALACYCLOVIR 500 MG TAB PO SCH (11:07)
[2023-01-13] MEDS: OXYBUTYNIN ER 5 MG TAB PO SCH (11:07)
[2023-01-13] MEDS: SILDENAFIL CITRATE 20 MG TABLET PO SCH ×3 (11:07→20:38)
[2023-01-13] MEDS: ASPIRIN 81 MG CHEWABLE TABLET PO SCH (11:08)
[2023-01-13] MEDS: LORATADINE 10 MG TAB PO SCH (11:08)
[2023-01-13] MEDS: D5 0.45 NS 1,000 ML IV SCH (15:45)
[2023-01-13 16:36] LABS: Potassium 3.4 mEq/L (3.5-5.1)
[2023-01-13] MEDS: HYDROCODONE/APAP 5/325 MG TAB PO PRN (18:38)
[2023-01-13] MEDS: GABAPENTIN 100 MG CAP PO SCH (20:37)
[2023-01-13] MEDS: TRAZODONE 50 MG TABLET PO SCH (20:38)
[2023-01-13] MEDS: POTASSIUM CL SA 10 MEQ TAB PO SCH (22:21)
--- NOTE | 2023-01-13 23:55 | PN ---
Date of Progress Note: 01/13/2023 Chief Complaint: Acute on chronic kidney injury, cardiorenal syndrome. Subjective: Patient completed hemodialysis for CHF exacerbation and acute on chronic kidney injury w ith cardiorenal syndrome. Patient is on Lasix. Patient underwent cardiac catheterization. IV fluid s were started prior to cardiac catheterization. Patient is on Mucomyst. Review of Systems: Denies chest pain, palpitation. Physical Examination: Lungs: Clear to auscultation bilaterally. Heart: S1, S2. Abdomen: Soft, benign. Extremities: Edema present. Impression And Plan: 1.Acute kidney injury secondary to cardiorenal syndrome. Serum creatinine has improved to baseline. Continue Lasix as needed. 2.Sepsis due to urinary tract infection with Klebsiella pneumonia, on antibiotics. Continue treatme nt. 3.Acute on chronic kidney injury, acute on chronic diastolic congestive heart failure, severe pulmon harsh hypertension. Further recommendation from Cardiology and Pulmonary. 4.Stage I sacral pressure ulcer per primary team. Continue wound care. 5.Metabolic encephalopathy. Monitor electrolytes. Adjust Lasix dose as needed. 6.Hyponatremia secondary to congestive heart failure. Continue low-sodium diet and Lasix. EB/MODL Voice ID: [id number] Report ID: [id number]
[2023-01-14 01:47] LABS: Hematocrit 24.1 % (36.0-45.0); MCV 85.9 fL (80-100); MPV 7.4 fL (7.6-11.3); Platelets 219 thou/uL (152-406); RBC Red Blood Cell Count 2.81 M/uL (3.86-4.86)
[2023-01-14 02:09] LABS: Potassium 3.3 mEq/L (3.5-5.1)
[2023-01-14] MEDS: MIDODRINE HCL 5 MG TABLET PO SCH ×3 (02:12→16:46)
[2023-01-14] MEDS: FUROSEMIDE 100 MG in NA CHLORIDE 0.9% 90 ML IV SCH ×3 (02:13→20:50)
[2023-01-14] MEDS: CEFAZOLIN SODIUM 2 GM in NA CHLORIDE 0.9% 100 ML IVPB SCH ×3 (05:25→21:26)
[2023-01-14] MEDS ORDERED: POTASSIUM 25 MEQ EFFERV TAB PO ONE (08:00)
[2023-01-14] MEDS: ARFORMOTEROL TARTRATE 15 MCG/2 ML VIAL.NEB NEB SCH ×2 (08:13→20:20)
[2023-01-14] MEDS: POTASSIUM CL SA 10 MEQ TAB PO SCH (09:29)
[2023-01-14] MEDS: ASPIRIN 81 MG CHEWABLE TABLET PO SCH (09:30)
[2023-01-14] MEDS: OXYBUTYNIN ER 5 MG TAB PO SCH (09:30)
[2023-01-14] MEDS: LORATADINE 10 MG TAB PO SCH (09:30)
[2023-01-14] MEDS: PANTOPRAZOLE 40MG TABLET PO SCH ×2 (09:30→16:46)
[2023-01-14] MEDS: VALACYCLOVIR 500 MG TAB PO SCH (09:31)
[2023-01-14] MEDS: DOCUSATE NA 100 MG CAP PO SCH ×2 (09:31→20:11)
[2023-01-14] MEDS: HEPARIN 5000 UNIT/ML 1 ML VIAL SQ SCH ×2 (09:31→20:12)
[2023-01-14] MEDS: SILDENAFIL CITRATE 20 MG TABLET PO SCH ×3 (09:31→20:23)
[2023-01-14] MEDS: HYDROCODONE/APAP 5/325 MG TAB PO PRN ×2 (11:46→20:23)
[2023-01-14] MEDS ORDERED: FUROSEMIDE 100 MG in NA CHLORIDE 0.9% 90 ML IV SCH ×2 (12:30→17:30)
--- NOTE | 2023-01-14 15:09 | P.PN ---
Subjective Date of Service: 01/14/23 Chief Complaint: Pulmonary hypertension cor pulmonale renal failure Patient has no new complaint. She is awake and alert Lower extremity edema significantly improved. Patient is awake and tolerating diet. Physical Examination - Vital Signs Temperature: 97.2 F Blood Pressure: 106/52 Pulse: 107 Respirations: 16 Pulse Ox (%): 98 Assessment And Plan - Plan Physical Exam: GEN: Alert, oriented, morbidly obese HEENT: Sclera anicteric CV: Regular rate and rhythm, 1-2+ b/l lower extremity edema improved. Pulm: diminished bilaterally, no rhonchi. ABD: Soft, nontender, nondistended Neuro: Normal speech, normal affect vitals reviewed Problem List: Sepsis secondary to UTI, Klebsiella Pneumoniae Acute diastolic CHF exacerbation. Iron deficiency anemia WILBERTO hyperkalemia Hyponatremia Peripheral neuropathy. Obesity hypoventilation obstructive sleep apnea impaired mobility severe pulmonary hypertension metabolic encephalopathy, improved Constipation Stage 1 sacral pressure ulcer Sepsis secondary to UTI, Klebsiella Pneumoniae Blood cx (12/30): No growth Urine culture (12/30): pansensitive Klebsiella. RLE redness secondary to venous stasis dermatitis as compared to cellulitis afebrile, Leukocytosis improved Patient is on Ancef per pulmonary recommendation. Acute diastolic CHF exacerbation. Daily weight and strict I/O. Cardiology is following. On lasix drip. Status post hemodialysis. HD catheter removed. Iron deficiency anemia s/p 2uPRBC (1 in ED, 1 on 01/10) received IV iron @125mg x8 from 01/03-01/10 hgb 7.7 -> 7.3 Monitor and transfuse as needed for hemoglobin less than 7. WILBERTO hyperkalemia Hyponatremia Lasix previously on hold due to WILBERTO. Nephrology consulted Temporary dialysis initiated. Dr. Alonzo consulted for dialysis catheter placement -- placed 01/04; removal planned for 01/12 or 01/13 renal function seems to have some recovery and patient tolerating lasix drip. Hemodialysis catheter removed. On lasix drip WILBERTO continues to improve Peripheral neuropathy. Renally dose gabapentin. Dose changed to 100 mg at bedtime Obesity hypoventilation obstructive sleep apnea severe pulmonary hypertension metabolic encephalopathy, improved Venous doppler (12/30): negative for DVT, VQ scan was ordered but was told by the dialysis chief equipment technician patient cannot fit the machine and therefore cannot be done. Patient initially started on Eliquis CTA chest(01/07) done later: negative for PE. pulmonary hypertension, hypoventilation vs mild pulmonary edema eliquis dc'd Continue BiPAP at night. Metabolic encephalopathy secondary to uremia and possible CO2 retention. AMS improved. Pulmonary Dr. Dobson is following s/p right heart cath by Dr. Valenzuela (01/13) noted Severe pulmonary hypertension, predominantly arterial, but there was a venous component to it as wel Management as per Dr. Dobson for pulmonary hypertension continue sildenafil; increased to 20 mg TID 01/09 Cardiology is following. impaired mobility Patient is needing total assist with bed mobility and transfers. Patient is reluctant to go to skilled rehab but remain total assist Social service is assisting with disposition. Ongoing discussion for skilled rehab placement-[place] [facility]. Constipation colace BID given dulcolax x1 (01/07) s/p enema 01/08 and 01/12 VTE: heparin SQ Code: Full Dispo: SNF - pending approval and further improvement ss/cm consulted
--- NOTE | 2023-01-14 18:40 | PN ---
Date of Progress Note: 01/14/2023 Subjective: The patient was admitted to the hospital with severe hypernatremia with pulmonary hypert ension and anasarca. The patient had acute kidney injury secondary to toxic ATN, poor perfusion ATN. We had to start the patient on dialysis, then the patient started showing recovery. Dialysis has b een held. Dialysis catheter has been removed. Physical Examination: Vital Signs: Blood pressure 106/52, pulse of 107, afebrile. Chest: Crackles bilateral. Heart: S1, S2. Regular. Abdomen: Soft, nontender, morbidly obese. Could not appreciate any organomegaly. Extremities: +2 edema. Neurologic: Alert. No focality. The patient had urine output of 3 L. Laboratory Data: Hemoglobin 7.8. Sodium 137, potassium 3.3, bicarb 30, BUN 42, creatinine 1, GFR of 61, calcium 7.9. Current Medications: The patient on include; 1.Cefazolin. 2.Aspirin. 3.Valacyclovir. 4.Loratadine. 5.Midodrine. 6.Gabapentin. 7.Lasix drip. Assessment And Plan: 1.Acute kidney injury secondary to possible AIN, nonoliguric, over volume. I am going to go ahead a nd increase her Lasix drip to 20 mg and we will continue to monitor the patient. 2.Hypertension, marginal. We will continue to follow up the patient closely. We will utilize blood pressure for more diuresis. 3.Congestive heart failure with exacerbation. Continue to optimize the fluid status. 4.Hyponatremia, dilutional. Continue diuresis. 5.Pulmonary hypertension. CT negative. Follow up with Pulmonary. ABHIJEET/RISA Voice ID: [id number] Report ID: [id number]
[2023-01-14] MEDS: TRAZODONE 50 MG TABLET PO SCH (20:13)
[2023-01-14] MEDS: GABAPENTIN 100 MG CAP PO SCH (20:17)
[2023-01-15] MEDS: MIDODRINE HCL 5 MG TABLET PO SCH ×3 (00:55→17:43)
[2023-01-15] MEDS: FUROSEMIDE 100 MG in NA CHLORIDE 0.9% 90 ML IV SCH ×4 (00:59→19:35)
[2023-01-15] MEDS: HYDROCODONE/APAP 5/325 MG TAB PO PRN ×3 (03:40→20:28)
[2023-01-15] MEDS: CEFAZOLIN SODIUM 2 GM in NA CHLORIDE 0.9% 100 ML IVPB SCH ×2 (05:11→14:00)
[2023-01-15] MEDS: ARFORMOTEROL TARTRATE 15 MCG/2 ML VIAL.NEB NEB SCH ×2 (07:45→20:35)
[2023-01-15] MEDS: ACETAMINOPHEN 325 MG TABLET PO PRN (10:21)
[2023-01-15] MEDS: OXYBUTYNIN ER 5 MG TAB PO SCH (10:24)
[2023-01-15] MEDS: DOCUSATE NA 100 MG CAP PO SCH ×2 (10:24→20:29)
[2023-01-15] MEDS: SILDENAFIL CITRATE 20 MG TABLET PO SCH ×3 (10:25→21:47)
[2023-01-15] MEDS: LORATADINE 10 MG TAB PO SCH (10:25)
[2023-01-15] MEDS: VALACYCLOVIR 500 MG TAB PO SCH (10:25)
[2023-01-15] MEDS: ASPIRIN 81 MG CHEWABLE TABLET PO SCH (10:25)
[2023-01-15] MEDS: POTASSIUM CL SA 10 MEQ TAB PO SCH (10:26)
[2023-01-15] MEDS: HEPARIN 5000 UNIT/ML 1 ML VIAL SQ SCH ×2 (10:27→20:31)
[2023-01-15] MEDS: PANTOPRAZOLE 40MG TABLET PO SCH ×2 (11:42→17:43)
--- NOTE | 2023-01-15 14:11 | P.PN ---
Subjective Date of Service: 01/15/23 Chief Complaint: Pulmonary hypertension cor pulmonale renal failure No major changes from yesterday. Patient is tolerating BiPAP. Lower extremity edema significantly improved. Physical Examination - Vital Signs Temperature: 98.0 F Blood Pressure: 97/45 Pulse: 97 Respirations: 14 Pulse Ox (%): 90 Assessment And Plan - Plan Physical Exam: GEN: Alert, oriented, morbidly obese HEENT: Sclera anicteric CV: Regular rate and rhythm, 1-2+ b/l lower extremity edema improved. Pulm: diminished bilaterally, no rhonchi. ABD: Soft, nontender, nondistended Neuro: Normal speech, normal affect vitals reviewed Problem List: Sepsis secondary to UTI, Klebsiella Pneumoniae Acute diastolic CHF exacerbation. Iron deficiency anemia WILBERTO hyperkalemia Hyponatremia Peripheral neuropathy. Obesity hypoventilation obstructive sleep apnea impaired mobility severe pulmonary hypertension metabolic encephalopathy, improved Constipation Stage 1 sacral pressure ulcer Sepsis secondary to UTI, Klebsiella Pneumoniae Blood cx (12/30): No growth Urine culture (12/30): pansensitive Klebsiella. RLE redness secondary to venous stasis dermatitis as compared to cellulitis afebrile, Leukocytosis improved Patient completed Ancef. Acute diastolic CHF exacerbation. Daily weight and strict I/O. Cardiology is following. On lasix drip. Status post hemodialysis. HD catheter removed. Iron deficiency anemia s/p 2uPRBC (1 in ED, 1 on 01/10) received IV iron @125mg x8 from 01/03-01/10 hgb 7.7 -> 7.3 Monitor and transfuse as needed for hemoglobin less than 7. WILBERTO hyperkalemia Hyponatremia Lasix previously on hold due to WILBERTO. Nephrology consulted Temporary dialysis initiated. Dr. Alonzo consulted for dialysis catheter placement -- placed 01/04; removal planned for 01/12 or 01/13 renal function seems to have some recovery and patient tolerating lasix drip. Hemodialysis catheter removed. On lasix drip WILBERTO continues to improve. Diuretic management per nephrology. Peripheral neuropathy. Renally dose gabapentin. Dose changed to 100 mg at bedtime Obesity hypoventilation obstructive sleep apnea severe pulmonary hypertension metabolic encephalopathy, improved Venous doppler (12/30): negative for DVT, VQ scan was ordered but was told by the scada technician patient cannot fit the machine and therefore cannot be done. Patient initially started on Eliquis CTA chest(01/07) done later: negative for PE. pulmonary hypertension, hypoventilation vs mild pulmonary edema eliquis dc'd Continue BiPAP at night. Metabolic encephalopathy secondary to uremia and possible CO2 retention. AMS improved. Pulmonary Dr. Dobson is following s/p right heart cath by Dr. Valenzuela (01/13) noted Severe pulmonary hypertension, predominantly arterial, but there was a venous component to it as wel Management as per Dr. Dobson for pulmonary hypertension continue sildenafil; increased to 20 mg TID 01/09. Pulmonary is considering inhaled prostacyclin as outpatient. Cardiology is following. impaired mobility Patient is needing total assist with bed mobility and transfers. Patient is reluctant to go to skilled rehab but remain total assist Social service is assisting with disposition. Ongoing discussion for skilled rehab placement-[place] [facility]. Constipation colace BID given dulcolax x1 (01/07) s/p enema 01/08 and 01/12 VTE: heparin SQ Code: Full Dispo: SNF - pending approval. ss/cm consulted
--- NOTE | 2023-01-15 19:28 | PN ---
Date of Progress Note: 01/15/2023 Subjective: The patient was admitted to the hospital with anasarca, pulmonary hypertension. The patient underwent CT with contrast. The patient developed acute kidney injury secondary to cardiorenal/AIN. Workup was negative. The patient received a few session of dialysis, tolerated well. The patient weaned from dialysis. Patient continued on Lasix drip, tolerated very well. Had good urine output, but still has significant edema requiring high oxygen. Physical Examination: Vital Signs: Blood pressure 97/45, pulse of 97, afebrile. Patient had urine output of 2800, negative of 1400. Chest: Decreased entry bilateral base. Heart: S1, S2. Systolic murmur. Abdomen: Morbidly obese. Could not appreciate any organomegaly. Extremities: +2 edema. Neurologic: Alert. No focality. Laboratory Data: WBC 11, hemoglobin 7.8. Sodium 137, potassium 3.3, bicarb 30, BUN 42, creatinine 1, GFR 61, calcium 7.9. Current Medications: The patient on include: 1. Loratadine. 2. Valacyclovir. 3. Aspirin. 4. Midodrine 10 t.i.d. 5. Sildenafil. 6. Gabapentin. 7. Trazodone. 8. Lasix drip. 9. Pantoprazole. Assessment And Plan: 1. Acute kidney injury secondary to toxic acute tubular necrosis. Full serology was negative except positive GAL and marginal depleted C3. The rest of the serology completely negative including anti-DNA. The patient is still on the over-volume side with marginal low blood pressure. I am going to continue the patient on the diuresis. We will start adding oral regimen including metolazone to establish better volume control. Hopefully tomorrow, we can switch the patient to pulsed treatment, then we will follow up. 2. Hypertension. Currently, blood pressure marginally low. Continue midodrine. We will utilize blood pressure for more diuresis. 3. Pulmonary hypertension. Pulmonary emboli have been ruled out. Follow up with Pulmonary. Continue current treatment. 4. Anasarca secondary to pulmonary hypertension as above. Continue diuresis. Time spent examining the patient [id number], reviewing data, lab and radiology, placing order, discussing the case with the patient, discussing the case with the boarder steam including the hospitalist and nursing staff more than 35 minutes. LISBETH Voice ID: [id number] Report ID: [id number] JOHN PAUL
[2023-01-15] MEDS: GABAPENTIN 100 MG CAP PO SCH (20:29)
[2023-01-15] MEDS: TRAZODONE 50 MG TABLET PO SCH (21:47)
[2023-01-16] MEDS: FUROSEMIDE 100 MG in NA CHLORIDE 0.9% 90 ML IV SCH ×5 (00:20→17:50)
[2023-01-16] MEDS: MIDODRINE HCL 5 MG TABLET PO SCH ×3 (01:35→16:40)
[2023-01-16] MEDS: HYDROCODONE/APAP 5/325 MG TAB PO PRN ×3 (05:01→20:16)
[2023-01-16] MEDS: ARFORMOTEROL TARTRATE 15 MCG/2 ML VIAL.NEB NEB SCH ×2 (07:53→20:00)
[2023-01-16] MEDS ORDERED: METOLAZONE 2.5 MG TABLET PO SCH (09:00)
[2023-01-16] MEDS: OXYBUTYNIN ER 5 MG TAB PO SCH (10:59)
[2023-01-16] MEDS: DOCUSATE NA 100 MG CAP PO SCH ×2 (10:59→20:26)
[2023-01-16] MEDS: LORATADINE 10 MG TAB PO SCH (11:00)
[2023-01-16] MEDS: PANTOPRAZOLE 40MG TABLET PO SCH ×2 (11:00→16:40)
[2023-01-16] MEDS: ASPIRIN 81 MG CHEWABLE TABLET PO SCH (11:00)
[2023-01-16] MEDS: SILDENAFIL CITRATE 20 MG TABLET PO SCH ×3 (11:42→20:25)
[2023-01-16] MEDS: VALACYCLOVIR 500 MG TAB PO SCH (11:42)
[2023-01-16] MEDS ORDERED: MAGNES/ALUMIN/SIMET 30ML UCUP PO PRN (13:36)
--- NOTE | 2023-01-16 13:44 | P.PN ---
Subjective Date of Service: 01/16/23 Chief Complaint: Pulmonary hypertension cor pulmonale renal failure No major changes from yesterday. Patient has no new complain. Lower extremity edema continue to improve. She has been tolerating diet. She was able to sit at the edge of the bed during PT yesterday. Physical Examination - Vital Signs Temperature: 97.1 F Blood Pressure: 112/57 Pulse: 104 Respirations: 18 Pulse Ox (%): 94 Assessment And Plan - Plan Physical Exam: GEN: Alert, oriented, morbidly obese HEENT: Sclera anicteric CV: Regular rate and rhythm, b/l lower extremity edema improved. Pulm: diminished bilaterally, no rhonchi. ABD: Soft, nontender, nondistended Neuro: Normal speech, normal affect vitals reviewed Problem List: Sepsis secondary to UTI, Klebsiella Pneumoniae Acute diastolic CHF exacerbation. Iron deficiency anemia WILBERTO hyperkalemia Hyponatremia Peripheral neuropathy. Obesity hypoventilation obstructive sleep apnea impaired mobility severe pulmonary hypertension metabolic encephalopathy, improved Constipation Stage 1 sacral pressure ulcer Sepsis secondary to UTI, Klebsiella Pneumoniae Blood cx (12/30): No growth Urine culture (12/30): pansensitive Klebsiella. RLE redness secondary to venous stasis dermatitis as compared to cellulitis afebrile, Leukocytosis improved Patient completed Ancef. Acute diastolic CHF exacerbation. Daily weight and strict I/O. Cardiology is following. On lasix drip. Status post hemodialysis. HD catheter removed. Iron deficiency anemia s/p 2uPRBC (1 in ED, 1 on 01/10) received IV iron @125mg x8 from 01/03-01/10 hgb 7.7 -> 7.3 Monitor and transfuse as needed for hemoglobin less than 7. WILBERTO hyperkalemia Hyponatremia Lasix previously on hold due to WILBERTO. Nephrology consulted Temporary dialysis initiated. Dr. Alonzo consulted for dialysis catheter placement -- placed 01/04; removal planned for 01/12 or 01/13 Patient has significant renal function recovery, hemodialysis discontinued and the dialysis catheter removed. Renal function has been improving on the Lasix drip Diuretic management per nephrology. Peripheral neuropathy. Renally dose gabapentin. Dose changed to 100 mg at bedtime Obesity hypoventilation obstructive sleep apnea severe pulmonary hypertension metabolic encephalopathy, improved Venous doppler (12/30): negative for DVT, VQ scan was ordered but was told by the copier repair technician patient cannot fit the machine and therefore cannot be done. Patient initially started on Eliquis CTA chest(01/07) done later: negative for PE. pulmonary hypertension, hypoventilation vs mild pulmonary edema eliquis dc'd Continue BiPAP at night. Metabolic encephalopathy secondary to uremia and possible CO2 retention. AMS improved. Pulmonary Dr. Dobson is following s/p right heart cath by Dr. Valenzuela (01/13) noted Severe pulmonary hypertension, predominantly arterial, but there was a venous component to it as wel Management as per Dr. Dobson for pulmonary hypertension continue sildenafil; increased to 20 mg TID 01/09. Pulmonary is considering inhaled prostacyclin as outpatient. Cardiology is following. impaired mobility Patient is needing total assist with bed mobility and transfers. Patient has agreed to go to skilled rehab/[place] [facility]. She was able to sit at the edge of the bed yesterday. Social service is assisting with disposition. Constipation colace BID given dulcolax x1 (01/07) s/p enema 01/08 and 01/12. GERD Protonix Maalox VTE: heparin SQ Code: Full Dispo: SNF - pending approval. ss/cm consulted
[2023-01-16] MEDS: ACETAMINOPHEN 325 MG TABLET PO PRN (18:42)
--- NOTE | 2023-01-16 18:56 | PN ---
Date of Progress Note: 01/16/2023 Subjective: The patient was admitted with respiratory failure secondary to pulmonary hypertension, severe congestive heart failure. The patient had acute kidney injury, required dialysis. CT with contrast ruled out any PE. The patient had cardiac cath also. Doing well. The patient has been placed on Lasix drip, has been diuresing very well. Physical Examination: Vital Signs: Blood pressure 112/57, pulse of 104, afebrile. The patient had good urine output. Yesterday, we added metolazone. Her urine output has been improved today, so far she has 2900. The patient negative of 2200. Chest: Decreased air entry bilateral base. Heart: S1 and S2. Systolic murmur. Abdomen: Soft, nontender. Extremities: +2 edema but much better than before. Neurologic: Alert, oriented x3. No focality. Weight; the patient continued to lose weight, the patient from admission lost almost 60 pounds. Laboratory Data: Hemoglobin 7.8. Sodium 137, potassium 3.3, bicarb 30, BUN 42, creatinine 1, GFR of 61. Calcium 7.9, magnesium 2.6. Albumin 2.2. Current Medications: The patient on include: 1. Aspirin. 2. Valacyclovir. 3. Loratadine. 4. Midodrine 10 t.i.d. 5. Sildenafil. 6. Tylenol. 7. Gabapentin. 8. Lasix drip. 9. Metolazone 2.5. 10. Zofran. 11. Pantoprazole. 12. Docusate. Assessment And Plan: 1. Acute kidney injury secondary to cardiorenal. The patient continued to improve. Still over volume responding to current diuresis dose. I am going to go ahead and place the patient on fluid restriction. We educate the patient and the family by bedside about it and we will follow up. 2. I am going to plan to switch her Lasix drip to oral by tomorrow or day after and we will monitor. 3. We will increase her metolazone to 5 mg as the patient showing good response. 4. I am going to go ahead and give her albumin today for mobilization of fluid from [facility] [place] and we will follow up. 5. Hypertension. Currently, blood pressure on the lower side. Continue midodrine. We will utilize blood pressure for more diuresis. 6. Congestive heart failure with severe pulmonary hypertension as above. We will follow up with Pulmonary. Plan for outpatient treatment. 7. Deconditioning. Continue PT, OT. Time spent examining the patient [id number], reviewing data, lab and radiology, placing order, discussing the case with the patient, discussing the case with the production team leader including the hospitalist and nursing staff more than 35 minutes. LISBETH Voice ID: [id number] Report ID: [id number] MTDD
[2023-01-16] MEDS: FUROSEMIDE 40 MG TABLET PO SCH (20:25)
[2023-01-16] MEDS: GABAPENTIN 100 MG CAP PO SCH (20:26)
[2023-01-16] MEDS: TRAZODONE 50 MG TABLET PO SCH (20:26)
[2023-01-17] MEDS: MIDODRINE HCL 5 MG TABLET PO SCH ×2 (01:02→08:55)
[2023-01-17 03:22] LABS: Absolute Lymphocytes (CBC) 1.1 K/uL (0.7-4.9); Hematocrit 22.2 % (36.0-45.0); Lymphocytes % 12.5 % (15.3-44.8); MCV 85.9 fL (80-100); MPV 7.6 fL (7.6-11.3); Platelets 211 thou/uL (152-406); RBC Red Blood Cell Count 2.58 M/uL (3.86-4.86)
[2023-01-17 03:43] LABS: Potassium 2.9 mEq/L (3.5-5.1)
[2023-01-17] MEDS: HYDROCODONE/APAP 5/325 MG TAB PO PRN ×2 (04:29→13:02)
[2023-01-17] MEDS ORDERED: KCL 20 MEQ/100 mL IVPB 20 MEQ/100 ML BAG IV SCH (08:00)
[2023-01-17] MEDS: ARFORMOTEROL TARTRATE 15 MCG/2 ML VIAL.NEB NEB SCH (08:20)
[2023-01-17] MEDS: DOCUSATE NA 100 MG CAP PO SCH (08:51)
[2023-01-17] MEDS: VALACYCLOVIR 500 MG TAB PO SCH (08:51)
[2023-01-17] MEDS: FUROSEMIDE 40 MG TABLET PO SCH ×2 (08:52→13:02)
[2023-01-17] MEDS: LORATADINE 10 MG TAB PO SCH (08:53)
[2023-01-17] MEDS: PANTOPRAZOLE 40MG TABLET PO SCH (08:53)
[2023-01-17] MEDS: OXYBUTYNIN ER 5 MG TAB PO SCH (08:53)
[2023-01-17] MEDS: ASPIRIN 81 MG CHEWABLE TABLET PO SCH (08:55)
[2023-01-17] MEDS: SILDENAFIL CITRATE 20 MG TABLET PO SCH ×2 (08:56→13:05)
[2023-01-17] MEDS ORDERED: METOLAZONE 2.5 MG TABLET PO SCH (09:00)
[2023-01-17] MEDS ORDERED: POTASSIUM 25 MEQ EFFERV TAB PO ONE (09:00)
[2023-01-17] MEDS: ACETAMINOPHEN 325 MG TABLET PO PRN (09:03)
[2023-01-17 09:34] VITALS: O2SAT 100
[2023-01-17 12:02] VITALS: BP 105/51; TEMP 97.7
--- NOTE | 2023-01-17 12:58 | P.DS ---
Admission Date: 12/30/22 Discharge Date: 01/17/23 Disposition: TRANSFER TO INPATIENT REHAB Discharge Condition: FAIR Reason for Admission: Pulmonary hypertension cor pulmonale renal failure Brief History of Present Illness: Patient is a 67-year-old female with a past medical history significant for CHF, hypertension, morbid obesity, insomnia who presented with complaint of shortness of breath and bilateral lower extremity swelling worse on the right side. Patient reported worsening shortness of breath over 3 weeks. Patient also reported lower extremity redness that hds been going on for 1 week. Patient also reports right lower extremity pain rated as 9/10 in severity and described as aching in quality. Chest x-ray showed no acute disease. Venous Doppler of lower extremities did not show any DVT. Patient was hospitalized for further management. Hospital Course: Diagnosis: Sepsis secondary to UTI, Klebsiella Pneumoniae Acute diastolic CHF exacerbation. Iron deficiency anemia WILBERTO hyperkalemia Hyponatremia Peripheral neuropathy. Obesity hypoventilation obstructive sleep apnea impaired mobility severe pulmonary hypertension metabolic encephalopathy, improved Constipation Stage 1 sacral pressure ulcer Sepsis secondary to UTI, Klebsiella Pneumoniae Blood cx (12/30): No growth Urine culture (12/30): pansensitive Klebsiella. RLE redness secondary to venous stasis dermatitis as compared to cellulitis Patient was afebrile, she had leukocytosis which improved Patient completed cefazolin for UTI Acute diastolic CHF exacerbation. Daily weight and strict I/O. Patient was seen and evaluated by cardiology She underwent hemodialysis with renal recovery. HD catheter removed and patient placed on Lasix drip, later transitioned to oral Lasix and metolazone. Iron deficiency anemia s/p 2uPRBC (1 in ED, 1 on 01/10) received IV iron @125mg x8 from 01/03-01/10 Hemoglobin hovered between 7-8 WILBERTO hyperkalemia Hyponatremia Patient developed WILBERTO with diuresis. Lasix previously on hold due to WILBERTO. Nephrology consulted Dr. Alonzo consulted for dialysis catheter placement -- placed 01/04. She underwent temporary hemodialysis Patient had significant renal function recovery, hemodialysis discontinued and the dialysis catheter removed. Renal function has been improving on the Lasix drip Lasix drip transition to oral Lasix with metolazone with appreciable negative fluid balance. Peripheral neuropathy. Renally dosed gabapentin. Dose changed to 100 mg at bedtime Obesity hypoventilation obstructive sleep apnea severe pulmonary hypertension metabolic encephalopathy, improved Venous doppler (12/30): negative for DVT, VQ scan was ordered but was told by the facilities technician patient cannot fit the machine and therefore cannot be done. Patient initially started on Eliquis CTA chest(01/07) done later: negative for PE. pulmonary hypertension, hypoventilation vs mild pulmonary edema eliquis dc'd Continue BiPAP at night. Metabolic encephalopathy secondary to uremia and possible CO2 retention. AMS improved. Pulmonary Dr. Dobson evaluated and followed patient. s/p right heart cath by Dr. Valenzuela (01/13) noted Severe pulmonary hypertension, predominantly arterial, but there was a venous component to it as well. Management as per Dr. Dobson for pulmonary hypertension Patient placed on sildenafil; dose increased to 20 mg TID 01/09. Pulmonary is considering inhaled prostacyclin as outpatient. Impaired mobility Patient is needing total assist with bed mobility and transfers. She was able to sit at the edge of the bed yesterday. Patient [facility] to [facility]. Vitals are stable for discharge Constipation colace BID given dulcolax x1 (01/07) s/p enema 01/08 and 01/12. GERD Protonix Maalox Vital Signs/Physical Exam: Temp Pulse Resp BP Pulse Ox 97.7 F 101 H 20 105/51 L 94 01/17/23 12:00 01/17/23 12:00 01/17/23 12:00 01/17/23 12:00 01/17/23 12:00 General: Alert, In no apparent distress, Obese HEENT: Mucous membr. moist/pink Neck: Supple, JVD not distended Respiratory: Clear to auscultation bilaterally, Normal air movement Cardiovascular: Regular rate/rhythm, Normal S1 S2, Edema (Bilateral lower extremity edema significantly improved.) Gastrointestinal: Normal bowel sounds, Soft and benign, Non-distended Neurological: Normal strength at 5/5 x4 extr Laboratory Data at Discharge: WBC 8.40 thou/uL (4.3-10.9) 01/17/23 01:46 Hgb 7.1 g/dL (12.0-15.0) L 01/17/23 01:46 Hct 22.2 % (36.0-45.0) L 01/17/23 01:46 Plt Count 211 thou/uL (152-406) 01/17/23 01:46 PT 18.6 SECONDS (9.5-12.5) H 01/13/23 02:04 INR 1.69 01/13/23 02:04 APTT 27.7 SECONDS (24.3-36.9) 12/30/22 11:05 Sodium 136 mEq/L (136-145) 01/17/23 01:46 Potassium 2.9 mEq/L (3.5-5.1) L 01/17/23 01:46 BUN 32 mg/dL (7-18) H 01/17/23 01:46 Creatinine 0.88 mg/dL (0.55-1.02) 01/17/23 01:46 Glucose 93 mg/dL (74-106) 01/17/23 01:46 Phosphorus 2.5 mg/dL (2.5-4.9) 01/13/23 02:04 Magnesium 2.6 mg/dL (1.6-2.4) H 01/13/23 02:04 Total Bilirubin 0.8 mg/dL (0.2-1.0) 01/13/23 02:04 AST 27 U/L (15-37) 01/13/23 02:04 ALT 11 U/L (13-56) L 01/13/23 02:04 Alkaline Phosphatase 103 U/L (45-117) 01/13/23 02:04 Triglycerides 80 mg/dL (<150) 12/31/22 02:35 Cholesterol 69 mg/dL (<200) 12/31/22 02:35 HDL Cholesterol 34 mg/dL (40-60) L 12/31/22 02:35 Cholesterol/HDL Ratio 2.03 12/31/22 02:35 Home Medications: Trazodone [Desyrel*] 100 mg PO BEDTIME #30 tab 11/25/21 Fluticasone Propion/Salmeterol [Wixela 250-50 Inhub] 1 each IH BID PRN 12/30/22 Gabapentin [Neurontin*] 100 mg PO TID 12/30/22 Loratadine 10 mg PO DAILY 12/30/22 Oxybutynin Chloride [Oxybutynin Chloride ER] 5 mg PO DAILY 12/30/22 Valacyclovir [Valtrex*] 500 mg PO DAILY 12/30/22 Acetaminophen [Tylenol*] 650 mg PO Q6H PRN tab 01/17/23 Arformoterol Tartrate [Brovana] 15 mcg NEB BIDRESP vial.neb 01/17/23 Aspirin Chewable [Aspirin Chewable*] 81 mg PO DAILY tab.chew 01/17/23 Docusate [Colace Cap*] 100 mg PO BID cap 01/17/23 Furosemide [Lasix*] 80 mg PO TID tab 01/17/23 Hydrocodone 5/APAP 325 [[place] 5/325*] 1 tab PO Q8H PRN #12 tab 01/17/23 Mag Hydroxide 8% [Milk Of Magnesia*] 30 ml PO BID PRN 01/17/23 Midodrine HCl [Proamatine*] 10 mg PO Q8H tab 01/17/23 Pantoprazole [Protonix Tab*] 40 mg PO BIDAC tab 01/17/23 Sildenafil Citrate [Revatio*] 20 mg PO TID 01/17/23 metOLazone [Zaroxolyn*] 5 mg PO DAILY tab 01/17/23 New Medications: Hydrocodone 5/APAP 325 [[place] 5/325*] 1 tab PO Q8H PRN #12 tab PRN Reason: Pain Scale 5-7 (Moderate) Diet: AHA Activity: Fall precautions Followup: NONE,NONE [Primary Care Provider] - Time spent managing pt's care (in minutes): 38
--- NOTE | 2023-01-17 15:27 | P.PN ---
Subjective Date of Service: 01/17/23 Chief Complaint: Pulmonary hypertension cor pulmonale renal failure Physical Examination - Vital Signs Temperature: 97.7 F Blood Pressure: 105/51 Pulse: 101 Respirations: 20 Pulse Ox (%): 94 Assessment And Plan - Plan 1. WILBERTO 2/2 CRS1. SCr improved to 1.6. Lasix as below. 2. Sepsis secondary to urinary tract infection, Klebsiella pneumoniae. Continue antibiotics. F/u cultures. 3. Acute on chronic diastolic heart failure, severe pulmo Htn. Continue low- sodium diet. On lasix gtt. 4. Stage I sacral pressure ulcer, per Primary Team. 5. Metabolic encephalopathy. Mental status has improved. 6. Hyponatremia. Continue low-sodium diet and Lasix. [id number]. Acute kidney injury secondary to cardiorenal. The patient continued to improve. Still over volume responding to current diuresis dose. I am going to go ahead and place the patient on fluid restriction. We educate the patient and the family by bedside about it and we will follow up. 2. I am going to plan to switch her Lasix drip to oral by tomorrow or day after and we will monitor. 3. We will increase her metolazone to 5 mg as the patient showing good response. 4. I am going to go ahead and give her albumin today for mobilization of fluid from third space and we will follow up. 5. Hypertension. Currently, blood pressure on the lower side. Continue midodrine. We will utilize blood pressure for more diuresis. 6. Congestive heart failure with severe pulmonary hypertension as above. We will follow up with Pulmonary. Plan for outpatient treatment. 7. Deconditioning. Continue PT, OT. Physician Review: Patient Assessed, Agree with Above Assessment and Plan
== END 2023-01-17 16:16 | DRG 871 ==
LOC: ER 10:33 → ERHOLD 13:51 → 2ND 15:09
PROVIDERS: ADMIT Internal Medicine Nephrology; ATTEND Internal Medicine
PROC: 5A09557 Assistance with Respiratory Ventilation, Greater than 96 Consecutive Hours, Continuous Positive Airway Pressure (ICD-10-PCS; 2022-12-30)
PROC: 30233N1 Transfusion of Nonautologous Red Blood Cells into Peripheral Vein, Percutaneous Approach (ICD-10-PCS; 2022-12-30)
PROC: 4A033B1 Measurement of Arterial Pressure, Peripheral, Percutaneous Approach (ICD-10-PCS; 2023-01-02)
PROC: 4A033B1 Measurement of Arterial Pressure, Peripheral, Percutaneous Approach (ICD-10-PCS; 2023-01-02)
PROC: 06HY33Z Insertion of Infusion Device into Lower Vein, Percutaneous Approach (ICD-10-PCS; 2023-01-04)
PROC: 5A1D70Z Performance of Urinary Filtration, Intermittent, Less than 6 Hours Per Day (ICD-10-PCS; 2023-01-04)
PROC: 5A1D70Z Performance of Urinary Filtration, Intermittent, Less than 6 Hours Per Day (ICD-10-PCS; 2023-01-06)
PROC: 5A1D70Z Performance of Urinary Filtration, Intermittent, Less than 6 Hours Per Day (ICD-10-PCS; 2023-01-07)
PROC: 30233N1 Transfusion of Nonautologous Red Blood Cells into Peripheral Vein, Percutaneous Approach (ICD-10-PCS; 2023-01-10)
PROC: 4A023N6 Measurement of Cardiac Sampling and Pressure, Right Heart, Percutaneous Approach (ICD-10-PCS; principal; 2023-01-13)
PROC: 4A0 Measurement and Monitoring, Physiological Systems, Measurement (ICD-10-PCS; 2023-01-13)
PROC: B30 Imaging, Upper Arteries, Plain Radiography (ICD-10-PCS; 2023-01-13)
PROC: B2041ZZ Plain Radiography of Right Heart using Low Osmolar Contrast (ICD-10-PCS; 2023-01-13)
DX: A41.9 Sepsis, unspecified organism (principal); G93.41 Metabolic encephalopathy; I50.33 Acute on chronic diastolic (congestive) heart failure; N17.0 Acute kidney failure with tubular necrosis; J96.22 Acute and chronic respiratory failure with hypercapnia; J96.21 Acute and chronic respiratory failure with hypoxia; L03.115 Cellulitis of right lower limb; N39.0 Urinary tract infection, site not specified; I13.0 Hypertensive heart and chronic kidney disease with heart failure and stage 1 through stage 4 chronic kidney disease, or unspecified chronic kidney disease; E87.1 Hypo-osmolality and hyponatremia; E66.2 Morbid (severe) obesity with alveolar hypoventilation; Z68.44 Body mass index [BMI] 60.0-69.9, adult; N25.81 Secondary hyperparathyroidism of renal origin; B96.1 Klebsiella pneumoniae [K. pneumoniae] as the cause of diseases classified elsewhere; D50.9 Iron deficiency anemia, unspecified; G89.29 Other chronic pain; I27.20 Pulmonary hypertension, unspecified; N18.9 Chronic kidney disease, unspecified; E26.1 Secondary hyperaldosteronism; I95.9 Hypotension, unspecified; E87.5 Hyperkalemia; K59.00 Constipation, unspecified; L89.151 Pressure ulcer of sacral region, stage 1; K21.9 Gastro-esophageal reflux disease without esophagitis; G62.9 Polyneuropathy, unspecified; M19.90 Unspecified osteoarthritis, unspecified site; G47.00 Insomnia, unspecified
CPT/HCPCS: 36415; 51702; 71045; 71250; 71275; 76770; 76937; 80048; 80053; 80061; 80069; 81001; 82550; 82570; 82728; 82805; 83520; 83540; 83605; 83735; 83880; 83935; 83970; 84100; 84132; 84156; 84165; 84300; 84439; 84443; 84466; 85014; 85018; 85025; 85027; 85044; 85610; 85730; 86021; 86038; 86160; 86225; 86430; 86705; 86706; 86803; 86850; 86900; 86901; 86920; 87040; 87077; 87086; 87088; 87186; 87340; 88108; 90935; 93005; 93306; 93970; 94640; 94660; 96374; 96375; 97110; 97161; 97530; 99285; C1893; J0690; J1644; J1650; J1940; J2001; J2405; J2543; J2916; J3010; J3480; J7040; J7050; J7605; J8499; P9016; P9047; Q5106; Q9966; Q9967